=== PATIENT | male | born 1985 | race Caucasian/White ===

== ENCOUNTER 2022-09-01 07:15 | Outpatient (OUT) | payer MEDICAID, SELFPAY ==
[2022-09-01 07:35] LABS: Basophils Percent Auto 0.6 % (0.2-2.0); Eosinophils Absolute Auto 0.1 10^3/uL (0.0-0.7); Eosinophils Percent Auto 2.6 % (0.9-7.0); Hematocrit 43.4 % (42.0-54.0); Hemoglobin 14.1 g/dL (14.0-18.0); Immature Granulocytes Abs Auto 0.01 10^3/uL (0.00-0.03); Immature Granulocytes Pct Auto 0.2 % (0.0-0.5); Lymphocytes Absolute Auto 2.3 10^3/uL (1.2-3.8); Lymphocytes Percent Auto 44.8 % (20.5-60.0); Mean Corpuscular HGB Conc 32.5 g/dL (29.9-35.2); Mean Corpuscular Hemoglobin 29.6 pg (25.9-34.0); Mean Platelet Volume 9.3 fL (9.5-13.5); Monocytes Absolute Auto 0.4 10^3/uL (0.3-0.8); Monocytes Percent Auto 8.7 % (1.7-12.0); Neutrophils Absolute Auto 2.2 10^3/uL (1.4-6.5); Neutrophils Percent Auto 43.1 % (43.0-75.0); Platelet Count 219 10^3/uL (150-450); Red Blood Count 4.77 10^6/uL (4.70-6.10); Red Cell Distribution Width 12.3 % (11.0-15.0)
[2022-09-01 08:28] LABS: Alanine Aminotransferase 36 U/L (16-63); Albumin Globulin Ratio 0.8; Albumin Level 3.5 g/dL (3.4-5.0); Alkaline Phosphatase 73 U/L (46-116); Anion Gap 6.7; Aspartate Amino Transferase 20 U/L (15-37); BUN Creatinine Ratio 19.7; Bilirubin Total 0.2 mg/dL (0.2-1.0); Calcium 9.1 mg/dL (8.5-10.1); Carbon Dioxide 35.6 mmol/L (21.0-32.0); Chloride 106 mmol/L (98-107); Estimated GFR (African America >60 (>=60); Estimated GFR (Non-African Ame >60 (>=60); Globulin 4.2 g/dL; Glucose 90 mg/dL (74-106); Potassium 4.3 mmol/L (3.5-5.1); Sodium 144 mmol/L (136-145); Thyroid Stimulating Hormone 1.444 uIU/mL (0.358-3.740); Total Protein 7.7 g/dL (6.4-8.2)
== END 2022-09-01 07:16 | disposition home or self-care (01) ==
LOC: LAB 07:16
PROVIDERS: PCP Family Medicine; Visit Provider Family Medicine
DX: E03.9 Hypothyroidism, unspecified (principal); Z79.899 Other long term (current) drug therapy
CPT/HCPCS: 36415; 80053; 84436; 84443; 85025

== ENCOUNTER 2022-10-09 22:51 | Emergency (ER) | payer MEDICAID, SELFPAY ==
[2022-10-09] VITALS (8 sets, daily range): BP systolic 85; BP diastolic 56; PULSE 46–58; RESP 14–21; TEMP 34.7; O2SAT 99–100
[2022-10-09] MEDS: NALOXONE HCL 2 MG/2 ML SYRINGE IV (22:54)
[2022-10-09] MEDS: MIDAZOLAM HCL 2 MG/2 ML VIAL 4 MG IV (22:57)
[2022-10-09] MEDS: 0.9 % SODIUM CHLORIDE 1,000 ML 999 ML IV (23:00)
[2022-10-09] MEDS: ETOMIDATE 20 MG/10 ML VIAL 30 MG IV (23:02)
[2022-10-09] MEDS: MIDAZOLAM HCL 2 MG/2 ML VIAL IV (23:05)
--- NOTE | 2022-10-09 23:10 | ECG_ITS ---
The [facility] Test Date: 2022-10-09 Pat Name: MILAN RAMOS Department: Room: - Gender: Male First Assistant Manager: : 1985 Requested By: [id number] Order Number: [id number] Reading MD: ANDREIA CORONADO Measurements Intervals [place] Rate: 59 P: 72 AR: 142 QRS: 98 QRSD: 122 T: 70 QT: 474 QTc: 474 Interpretive Statements 1100 Sinus rhythm 2420 RSR (QR) in lead V1/V2, consistent with right ventricular conduction delay 7102 Moderate right axis deviation 8304 Long QTc interval 9150 abnormal ECG No previous ECG available for comparison Electronically Signed On 10-10-2022 7:07:25 EDT by ANDREIA CORONADO
--- NOTE | 2022-10-09 23:10 | CT_ITS ---
The [address] [address] Patient Name: MILAN RAMOS MRN: [id number] date: 1985 Sex: M Assigned Patient Location: ED.MAIN Current Patient Location: Accession/Order Number: [id number] Exam Date: 10/09/2022 11:30 Report Date: 10/10/2022 00:03 At the request of: SWAPNA RIVERA Procedure: CT head/brain wo con EXAMINATION: CT head/brain wo con HISTORY: unresponsive COMPARISON: None. TECHNIQUE: CT images through the head without contrast. Dose reduction techniques were achieved by using: automated exposure control and/or adjustment of mA and /or kV according to patient size and/or use of iterative reconstruction technique. FINDINGS: The ventricles and sulci are within normal limits in size and configuration for age. There is no evidence for acute intracranial hemorrhage. There are no foci of abnormal parenchymal attenuation. There is no mass effect or midline shift. There are no abnormal extraaxial fluid collections. CT/CT head/brain wo con IMPRESSION: Negative for acute hemorrhage or acute intracranial process. Electronically authenticated by: MIKI LIMA Date: 10/10/2022 00:03
--- NOTE | 2022-10-09 23:11 | CT_ITS ---
The [address] [address] Patient Name: MILAN RAMOS MRN: [id number] date: 1985 Sex: M Assigned Patient Location: ED.MAIN Current Patient Location: Accession/Order Number: [id number] Exam Date: 10/09/2022 11:30 Report Date: 10/10/2022 00:13 At the request of: SWAPNA RIVERA Procedure: CT angio chest EXAM: CT angio chest HISTORY: hypoxemia COMPARISON: None. TECHNIQUE: Axial CT and radiographic images through the chest were obtained after the intravenous administration of 90 mL Omnipaque 350 contrast. Coronal and sagittal reformats were obtained. Dose reduction techniques were achieved by using automated exposure control and/or adjustment of mA and/or kV according to patient size and/or use of iterative reconstruction technique. FINDINGS: The study is technically adequate with a good contrast bolus to the pulmonary arteries. There are no filling defects or vascular cutoffs to indicate a pulmonary embolus. The pulmonary arteries are normal in size. There are nodular areas of consolidation and scattered groundglass opacities in the right middle lobe. The central airways are patent. No pleural effusion or pneumothorax is seen. An endotracheal tube terminates just above the hans and is directed toward the right mainstem bronchus. The thoracic aorta is normal in course and caliber without evidence of an aneurysm. The cardiac chambers appear normal in size. There is no pericardial effusion. There is no mediastinal, hilar, or axillary lymphadenopathy by CT size criteria. Images through the upper abdomen reveal no significant abnormalities. No suspicious or aggressive bone lesions are seen. No acute fracture is seen. CT/CT angio chest IMPRESSION: 1. No evidence of pulmonary embolism. 2. Right middle lobe pneumonia. 3. The endotracheal tube terminates just above the hans and is directed toward the right mainstem bronchus. Recommend retraction by 2 to 3 cm. Electronically authenticated by: Evaristo MCNEIL Date: 10/10/2022 00:13
[2022-10-09 23:24] LABS: Eosinophils Absolute Auto 0.1 10^3/uL (0.0-0.7); Immature Granulocytes Abs Auto 0.01 10^3/uL (0.00-0.03); Immature Granulocytes Pct Auto 0.2 % (0.0-0.5); Monocytes Absolute Auto 0.7 10^3/uL (0.3-0.8); Neutrophils Absolute Auto 3.1 10^3/uL (1.4-6.5)
[2022-10-09] MEDS: PROPOFOL 1,000 MG/100 ML VIAL 1.92 MG IV (23:25)
[2022-10-09 23:48] LABS: Bilirubin Urine NEGATIVE (NEGATIVE); Blood Urine NEGATIVE (NEGATIVE); Clarity Urine CLEAR (CLEAR); Color Urine DK. YELLOW (YELLOW); Glucose Urine UA NEGATIVE (NEGATIVE); Ketones Urine TRACE mg/dL (NEGATIVE); Leukocyte Esterase Urine NEGATIVE (NEGATIVE); Nitrite Urine NEGATIVE (NEGATIVE); Protein Urine TRACE mg/dL (NEG/TRACE); Specific Gravity Urine 1.025 (1.005-1.025)
--- NOTE | 2022-10-09 23:49 | ED_ITS ---
HPI - General Adult General Chief complaint: Altered Mental Status Stated complaint: HYPOTENSION Time Seen by Provider: 10/09/22 23:09 Mode of arrival: ambulance Limitations: altered mental status Limitations comment: History from EMS, caregiver. History of Present Illness HPI narrative: Patient brought in via EMS unresponsive. Patient is a resident from [place]. He spent the whole day outdoors. He was doing well at 8:30 PM. Staff was doing rounds at 10:30 and found the patient not responding, diaphoretic, hypotensive, and bradycardic. EMS arrived the patient was given IV fluids and placed on a nonrebreather. The patient arrives to the emergency department with a nonrebreather that is not on his face. Patient's glucose was 143 at the scene. Patient has a history of ankle men syndrome, and intellectual disability, seizure disorder, hypothyroidism, dysphagia. Caregiver confirms the patient has not been sick with anything recently. Patient is a full code. Related Data Home Medications Medication Instructions Recorded Confirmed ascorbic acid (vitamin C) 250 mg 250 mg PO DAILY 10/10/22 10/10/22 tablet carbamazepine 200 mg tablet mg 10/10/22 cholecalciferol (vitamin D3) 125 10/10/22 mcg (5,000 unit) capsule divalproex 250 mg tablet,extended mg PO 10/10/22 release 24 hr divalproex 500 mg tablet,extended mg PO 10/10/22 release 24 hr guanfacine 1 mg tablet mg 10/10/22 guanfacine 2 mg tablet mg 10/10/22 levothyroxine 75 mcg tablet mcg 10/10/22 linaclotide 290 mcg capsule mcg 10/10/22 (Linzess) montelukast 10 mg tablet mg 10/10/22 multivitamin tab 10/10/22 polyethylene glycol 3350 17 g 10/10/22 gram/dose oral powder white petrolatum topical 10/10/22 zinc gluconate 50 mg tablet mg 10/10/22 Allergies Allergy/AdvReac Type Severity Reaction Status Date / Time cefaclor [From Ceclor] Allergy Unknown Verified 10/09/22 23:50 erythromycin base Allergy Unknown Verified 10/09/22 23:50 [From Pediazole] sulfisoxazole Allergy Unknown Verified 10/09/22 23:50 [From Pediazole] Review of Systems ROS Status of ROS unobtainable due to endotracheal tube, unobtainable due to medical condition and unobtainable due to mental status Exam Narrative Exam Narrative: Nurses notes and vital signs reviewed and patient is not hypoxic. General: Well-developed, well-nourished, not responding other than to painful stimulus. Nonverbal Skin: Warm, dry, no pallor noted. No Rash Head: Normocephalic, atraumatic. Neck: Supple Eye: Pupils are equal, round pinpoint and EOMI. No scleral icterus. Ears, Nose, Mouth, and Throat: TM clear, no posterior oropharynx erythema or nasal mucosal hypertrophy, uvula is mid-line Oral mucosa is moist Cardiovascular: bradycardia without murmur, gallop or rub. Respiratory: There is no chest triceps observed, no respiratory effort, no respiratory distress. Lungs bilateral lower rhonchi Chest Wall: no tenderness Back: No midline thoracic or lumbar vertebral tenderness. No CVA tenderness Musculoskeletal: normal ROM, no calf or popliteal tenderness, no lower extremity edema/swelling GI: Abdomen is soft, non-distended. Normal bowel sounds. No tenderness to palpation. No rebound, guarding, or rigidity noted : No signs of trauma, no edema, uncircumcised, soiled Neurological: GCS6, no asymmetry observed. flexes left arm to painful stimuli. Psychiatric: unable, unresponsive Constitutional Vital Signs, click to edit/add: Last Vital Signs Temp 94.5 F L 10/09/22 23:00 Pulse 63 10/10/22 02:00 Resp 21 10/09/22 23:25 BP 128/91 10/10/22 02:00 Pulse Ox 100 10/10/22 02:00 O2 Del Method Mechanical Ventilator 10/09/22 23:05 FiO2 50 10/09/22 23:17 Course Vital Signs Vital signs: Vital Signs Temperature 94.5 F L 10/09/22 23:00 Temperature 94.5 F L 10/09/22 23:00 Pulse Rate 63 10/10/22 02:00 Respiratory Rate 10/09/22 23:25 Blood Pressure 128/91 10/10/22 02:00 Pulse Oximetry 100 10/10/22 02:00 Oxygen Delivery Method Mechanical Ventilator 10/09/22 23:05 Fraction of Inspired Oxygen 50 10/09/22 23:17 Medical Decision Making MDM Narrative Medical decision making narrative: Patient arrived with a pulse, but he had no chest rise. Pupils were pinpoint he was given Narcan and there was no response. IV fluids were started and proceded to intubate. RSI Intubation Note: Indication :GCS6, patient unresponsive. Emergent consent. Patient had IV established. Pre oxygenated to O2 wyf159% with bag valve mask. Patient was given 4 mg of Versed, and 30 mg of Amidate IV. The g lidoscope was used to visualize the cords. An 8.0 Uzbek ET tube was passed into the trachea through the cords. Placed 22 cm at the lips. Placement was confirmed by good fogging of tube, The CO2 detector, bilateral and equal lungs sounds, and chest x-ray. ETT pulled 2cm to 20 at the lip. Only 1 attempt was needed, patient tolerated well. Patient started on diprivan. Then settings AC TV 450, RR14, FiO2 of 35 %, PEEP of 5. ABGs reviewed, and fire to was decreased from 50->35%. Patient was hypotensive he was given 2 L normal saline. Remained hypotensive started on Levophed. Patient then became bradycardic 30s she was given 0.5 mg of atropine. He responded well to this. Patient's labs show the patient to have hypercalcemia. He was given 2 g of calcium gluconate. The patient was covered with vancomycin, and Zosyn [address] scan of the brain is unremarkable. CTA of the chest shows no PE or dissection, right lower lobe pneumonia. With the results were discussed with the caregiver, and family. At this time wouldn't have a clear etiology for the patient's unresponsive, and respiratory Patient has remained hemodynamically stable. Patient was discussed with Dr. martinez who has accepted the patient in transfer to [facility] [place].Patient will be accepted by Dr. Rodríguez. flight en route. Medical Records Medical records reviewed: Yes I reviewed the patient's medical records Medical records narrative: Records from the shelter where reviewed and are part of the medical decision making. Lab Data Lab results reviewed: Yes I reviewed the patient's lab results Labs: Lab Results 10/09/22 10/09/22 10/09/22 Range/Units 23:00 23:25 23:27 WBC 5.5 (4.0-11.0) 10^3/uL RBC 3.20 L (4.70-6.10) 10^6/uL Hgb 9.8 L (14.0-18.0) g/dL Hct 29.0 L (42.0-54.0) % MCV 90.6 (80.0-94.0) fL MCH 30.6 (25.9-34.0) pg MCHC 33.8 (29.9-35.2) g/dL RDW 12.5 (11.0-15.0) % Plt Count 116 L (150-450) 10^3/uL MPV 9.9 (9.5-13.5) fL Neut % (Auto) 55.9 (43.0-75.0) % Lymph % (Auto) 29.3 (20.5-60.0) % Leslie % (Auto) 12.6 H (1.7-12.0) % Eos % (Auto) 1.8 (0.9-7.0) % Baso % (Auto) 0.2 (0.2-2.0) % Neut # (Auto) 3.1 (1.4-6.5) 10^3/uL Lymph # (Auto) 1.6 (1.2-3.8) 10^3/uL Leslie # (Auto) 0.7 (0.3-0.8) 10^3/uL Eos # (Auto) 0.1 (0.0-0.7) 10^3/uL Baso # (Auto) 0.0 (0.0-0.1) 10^3/uL Abs Immat Gran (auto) 0.01 (0.00-0.03) 10^3/uL Imm/Tot Granulo (auto) 0.2 (0.0-0.5) % PT 11.4 (9.0-11.6) sec INR 1.08 APTT 32.8 (22.3-36.2) sec Puncture Site ABG pH (7.350-7.450) ABG pCO2 (35.0-45.0) mmHg ABG pO2 (80.0-100.0) mmHg ABG HCO3 (22.0-26.0) mmol/L ABG O2 Saturation % ABG Base Excess (-2.0-2.0) mmol/L Edis Test (POSITIVE) Vent Mode FiO2 % Tidal Volume Sodium 142 (136-145) mmol/L Potassium 3.2 L (3.5-5.1) mmol/L Chloride 109 H (98-107) mmol/L Carbon Dioxide 27.7 (21.0-32.0) mmol/L Anion Gap 8.5 BUN 16.0 (7.0-18.0) mg/dL Creatinine 0.70 (0.70-1.30) mg/dL Est GFR ( Amer) >60 (>=60) Est GFR (Non-Af Amer) >60 (>=60) BUN/Creatinine Ratio 22.9 Glucose 141 H (74-106) mg/dL Lactate 1.7 (0.4-2.0) mmol/L Calcium 6.9 L (8.5-10.1) mg/dL Magnesium 1.8 (1.8-2.4) mg/dL Total Bilirubin 0.3 (0.2-1.0) mg/dL AST 13 L (15-37) U/L ALT 12 L (16-63) U/L Alkaline Phosphatase 53 (46-116) U/L Ammonia 63 H* (11-32) umol/L Troponin I High Sens 13.0 (4.0-76.1) pg/mL NT-Pro-B Natriuret Pep 56.0 (<=450.0) pg/mL Total Protein 4.7 L (6.4-8.2) g/dL Albumin 2.1 L (3.4-5.0) g/dL Globulin 2.6 g/dL Albumin/Globulin Ratio 0.8 TSH 0.961 (0.358-3.740) uIU/mL Urine Color Dk. yellow (YELLOW) Urine Clarity Clear (CLEAR) Urine pH 6.0 (5.0-9.0) Ur Specific [place] 1.025 (1.005-1.025) Urine Protein Trace (NEG/TRACE) mg/dL Urine Glucose (UA) Negative (NEGATIVE) mg/dL Urine Ketones Trace A (NEGATIVE) mg/dL Urine Occult Blood Negative (NEGATIVE) Urine Nitrite Negative (NEGATIVE) Urine Bilirubin Negative (NEGATIVE) Urine Urobilinogen 1.0 (0.2-1.0) EU/dL Ur Leukocyte Esterase Negative (NEGATIVE) Salicylates <2.8 (<=19.9) mg/dL Urine Opiates Screen Negative (NEGATIVE) Ur Buprenorphine Scrn Negative (NEGATIVE) Ur Oxycodone Screen Negative (NEGATIVE) Urine Methadone Screen Negative (NEGATIVE) Ur Propoxyphene Screen Negative (NEGATIVE) Acetaminophen 5.0 L (10.0-30.0) ug/mL Ur Barbiturates Screen Negative (NEGATIVE) U Tricyclic Antidepress Negative (NEGATIVE) Ur Phencyclidine Scrn Negative (NEGATIVE) Ur Amphetamines Screen Negative (NEGATIVE) U Methamphetamines Scrn Negative (NEGATIVE) U Benzodiazepines Scrn Negative (NEGATIVE) Urine Cocaine Screen Negative (NEGATIVE) U Cannabinoids Screen Negative (NEGATIVE) Ethanol Quant <3 mg/dL 10/10/22 Range/Units 00:05 WBC (4.0-11.0) 10^3/uL RBC (4.70-6.10) 10^6/uL Hgb (14.0-18.0) g/dL Hct (42.0-54.0) % MCV (80.0-94.0) fL MCH (25.9-34.0) pg MCHC (29.9-35.2) g/dL RDW (11.0-15.0) % Plt Count (150-450) 10^3/uL MPV (9.5-13.5) fL Neut % (Auto) (43.0-75.0) % Lymph % (Auto) (20.5-60.0) % Leslie % (Auto) (1.7-12.0) % Eos % (Auto) (0.9-7.0) % Baso % (Auto) (0.2-2.0) % Neut # (Auto) (1.4-6.5) 10^3/uL Lymph # (Auto) (1.2-3.8) 10^3/uL Leslie # (Auto) (0.3-0.8) 10^3/uL Eos # (Auto) (0.0-0.7) 10^3/uL Baso # (Auto) (0.0-0.1) 10^3/uL Abs Immat Gran (auto) (0.00-0.03) 10^3/uL Imm/Tot Granulo (auto) (0.0-0.5) % PT (9.0-11.6) sec INR APTT (22.3-36.2) sec Puncture Site L radial ABG pH 7.388 (7.350-7.450) ABG pCO2 43.7 (35.0-45.0) mmHg ABG pO2 279.0 H (80.0-100.0) mmHg ABG HCO3 26.3 H (22.0-26.0) mmol/L ABG O2 Saturation >100.0 % ABG Base Excess 1.3 (-2.0-2.0) mmol/L Edis Test Positive (POSITIVE) Vent Mode A/c FiO2 50 % Tidal Volume 450 Sodium (136-145) mmol/L Potassium (3.5-5.1) mmol/L Chloride (98-107) mmol/L Carbon Dioxide (21.0-32.0) mmol/L Anion Gap BUN (7.0-18.0) mg/dL Creatinine (0.70-1.30) mg/dL Est GFR ( Amer) (>=60) Est GFR (Non-Af Amer) (>=60) BUN/Creatinine Ratio Glucose (74-106) mg/dL Lactate (0.4-2.0) mmol/L Calcium (8.5-10.1) mg/dL Magnesium (1.8-2.4) mg/dL Total Bilirubin (0.2-1.0) mg/dL AST (15-37) U/L ALT (16-63) U/L Alkaline Phosphatase (46-116) U/L Ammonia (11-32) umol/L Troponin I High Sens (4.0-76.1) pg/mL NT-Pro-B Natriuret Pep (<=450.0) pg/mL Total Protein (6.4-8.2) g/dL Albumin (3.4-5.0) g/dL Globulin g/dL Albumin/Globulin Ratio TSH (0.358-3.740) uIU/mL Urine Color (YELLOW) Urine Clarity (CLEAR) Urine pH (5.0-9.0) Ur Specific [place] (1.005-1.025) Urine Protein (NEG/TRACE) mg/dL Urine Glucose (UA) (NEGATIVE) mg/dL Urine Ketones (NEGATIVE) mg/dL Urine Occult Blood (NEGATIVE) Urine Nitrite (NEGATIVE) Urine Bilirubin (NEGATIVE) Urine Urobilinogen (0.2-1.0) EU/dL Ur Leukocyte Esterase (NEGATIVE) Salicylates (<=19.9) mg/dL Urine Opiates Screen (NEGATIVE) Ur Buprenorphine Scrn (NEGATIVE) Ur Oxycodone Screen (NEGATIVE) Urine Methadone Screen (NEGATIVE) Ur Propoxyphene Screen (NEGATIVE) Acetaminophen (10.0-30.0) ug/mL Ur Barbiturates Screen (NEGATIVE) U Tricyclic Antidepress (NEGATIVE) Ur Phencyclidine Scrn (NEGATIVE) Ur Amphetamines Screen (NEGATIVE) U Methamphetamines Scrn (NEGATIVE) U Benzodiazepines Scrn (NEGATIVE) Urine Cocaine Screen (NEGATIVE) U Cannabinoids Screen (NEGATIVE) Ethanol Quant mg/dL ECG Data Attestation: I personally reviewed and interpreted this ECG as follows: Interpretation: Sinus bradycardia without any acute ischemic changes. Critical Care Time Critical Care Time Critical Care Time: Yes Total Critical Care Time: 90 Attestation: Critical Care Time: 90 minutes, critical care time is separate from any procedures that are performed. The following was considered in the determination of critical care but not limited to the level medical decision-making, intensive cardiac and/or respiratory monitor, frequent vital sign monitoring, evaluation of laboratory studies, evaluation of a radiographic studies, oxygen monitoring and constant monitoring. Discharge Plan Discharge Chief Complaint: Altered Mental Status Clinical Impression: Unresponsive, Respiratory failure, acute, Bradycardia, Hypotension, Pneumonia Patient Disposition: [facility] Time of Disposition Decision: 01:27 Discharge Location: [facility] Condition: Serious Mode of Transportation: Life [facility]
[2022-10-09 23:58] LABS: Amphetamine Screen Urine NEGATIVE (NEGATIVE); Barbiturates Screen Urine NEGATIVE (NEGATIVE); Benzodiazepines Screen Urine NEGATIVE (NEGATIVE); Buprenorphine Screen Urine NEGATIVE (NEGATIVE); Cannabinoid Screen Urine NEGATIVE (NEGATIVE); Cocaine Screen Urine NEGATIVE (NEGATIVE); Methadone Screen Urine NEGATIVE (NEGATIVE); Methamphetamines Screen Urine NEGATIVE (NEGATIVE); Opiate Screen Urine NEGATIVE (NEGATIVE); Oxycodone Screen Urine NEGATIVE (NEGATIVE); Phencyclidine Screen Urine NEGATIVE (NEGATIVE); Tricyclic Antidepressant Urine NEGATIVE (NEGATIVE); Urine Microscopic Indicated NO
[2022-10-10] VITALS (36 sets, daily range): BP systolic 81–173; BP diastolic 55–119; PULSE 32–74; O2SAT 99–100
[2022-10-10 00:02] LABS: Ammonia 63 umol/L (11-32)
[2022-10-10] MEDS: NOREPINEPHRINE BITARTRATE 4 MG in DEXTROSE 5 % IN WATER 250 ML 45.72 MG IV (00:10)
[2022-10-10] MEDS: ATROPINE SULFATE 0.4 MG/ML VIAL 0.5 MG IVP (00:15)
--- NOTE | 2022-10-10 00:15 | RESP.RT ---
ET tube pulled out 2cm per Dr. Robertson request. ET tube now 20 cm at the lip.
[2022-10-10 00:24] LABS: ABG PCO2 43.7 mmHg (35.0-45.0); Allen Test POSITIVE (POSITIVE); Base Excess ABG 1.3 mmol/L (-2.0-2.0); HCO3 ABG 26.3 mmol/L (22.0-26.0); pH ABG 7.388 (7.350-7.450)
[2022-10-10 00:25] LABS: Fractionated Inspired Oxygen 50 %; O2 Mode VENT; Oxygen Saturation ABG >100.0 %; Puncture Site L RADIAL; Rate 14; Vent Mode A/C
[2022-10-10 00:26] LABS: Tidal Volume 450
[2022-10-10 00:30] LABS: Basophils Percent Auto 0.2 % (0.2-2.0); Eosinophils Percent Auto 1.8 % (0.9-7.0); Hemoglobin 9.8 g/dL (14.0-18.0); Lymphocytes Absolute Auto 1.6 10^3/uL (1.2-3.8); Lymphocytes Percent Auto 29.3 % (20.5-60.0); Mean Corpuscular HGB Conc 33.8 g/dL (29.9-35.2); Mean Corpuscular Hemoglobin 30.6 pg (25.9-34.0); Mean Corpuscular Volume 90.6 fL (80.0-94.0); Mean Platelet Volume 9.9 fL (9.5-13.5); Monocytes Percent Auto 12.6 % (1.7-12.0); Neutrophils Percent Auto 55.9 % (43.0-75.0); Platelet Count 116 10^3/uL (150-450); Red Cell Distribution Width 12.5 % (11.0-15.0); White Blood Count 5.5 10^3/uL (4.0-11.0)
[2022-10-10 00:32] LABS: Prothrombin Time 11.4 sec (9.0-11.6)
[2022-10-10 00:33] LABS: Alanine Aminotransferase 12 U/L (16-63); Albumin Globulin Ratio 0.8; Albumin Level 2.1 g/dL (3.4-5.0); Alkaline Phosphatase 53 U/L (46-116); Anion Gap 8.5; Aspartate Amino Transferase 13 U/L (15-37); BUN Creatinine Ratio 22.9; Bilirubin Total 0.3 mg/dL (0.2-1.0); Calcium 6.9 mg/dL (8.5-10.1); Carbon Dioxide 27.7 mmol/L (21.0-32.0); Chloride 109 mmol/L (98-107); Estimated GFR (African America >60 (>=60); Estimated GFR (Non-African Ame >60 (>=60); Globulin 2.6 g/dL; Glucose 141 mg/dL (74-106); INR 1.08; Magnesium 1.8 mg/dL (1.8-2.4); Partial Thromboplastin Time 32.8 sec (22.3-36.2); Potassium 3.2 mmol/L (3.5-5.1); Salicylate <2.8 mg/dL (<=19.9); Sodium 142 mmol/L (136-145); Total Protein 4.7 g/dL (6.4-8.2)
[2022-10-10 00:36] LABS: Ethanol <3 mg/dL
[2022-10-10 00:43] LABS: Lactate/Lactic Acid 1.7 mmol/L (0.4-2.0)
[2022-10-10] MEDS: CALCIUM GLUCONATE 1,000 MG/10 ML VIAL 2000 MG IVP (00:50)
[2022-10-10 01:02] LABS: Thyroid Stimulating Hormone 0.961 uIU/mL (0.358-3.740)
--- NOTE | 2022-10-10 01:06 | RESP.RT ---
P02 on ABG was 279.0. Decreased Fi02 down from 50% to 35%.
--- NOTE | 2022-10-10 01:18 | PC.NURSE ---
pt brought in by ems by [facility], report called to courtney castelan from a nurse at [facility] stating that patient was less alert than normal and last known well was 8-8:30 pm on 10/09/2022; when ems arrival pt was unresponsive to painful stimuli and placed on a non-rebreather mask at 15L. pt has hx mmrdd and is non-verbal.
--- NOTE | 2022-10-10 01:23 | PC.NURSE ---
on arrival to ED pt vitals are HR-66, O2-100% BAGGED, RR-14, BP-84/48 2254- 2mg of narcan given 2257- 4mg versed given 2302- 30mg etomidate given 2305- 2mg versed given 230- intubation successfully done at this time by dr. feliz, measuring 25 at the lip, 7.0 ET tube 5- pt had large bowel movement and cleaned up with soap and water, urinary catheter placed at this time and urine sample obtained 2324- propofol drip started at 5mcg/kg/min 0010- increased propofol to 10mcg/kg/min; levophed drip started at 12mcg/min; RT at bedside pulled ET tube back; now measuring at 20 at the lip 0015- pt heart rate dropped down to 32 bpm, physician notified, 1/2 amp of atropine given at this time, pt heart rate up to 40-45 bpm 0020- levophed decreased and now running at 10 mcg/min 0045- levophed decreased and now running at 8 mcg/min 0050- 2000 mg of calcium gluconate being adinistered at this time 0105- RT at bedside and decreased FiO2 to 35% 0127- pt bp 139/101; instructed by physician to decrase levophed drip, now running at 4 mcg/min
--- NOTE | 2022-10-10 01:33 | PC.NURSE ---
VT- 450 RR- 14 PEEP- 5 FiO2- STARTED AT 50%; at 0105 RT decreased FiO2 to 35%
[2022-10-10] MEDS: AMPICILLIN SODIUM/SULBACTAM NA 3 GM in 0.9 % SODIUM CHLORIDE 100 ML IV (01:36)
[2022-10-10] MEDS: VANCOMYCIN HCL 1,500 MG in 0.9 % SODIUM CHLORIDE 500 ML 250 MG IV (01:40)
[2022-10-10 02:16] LABS: Adenovirus NOT DETECTED (NOT DETECTE); Bordetella parapertussis NOT DETECTED (NOT DETECTE); Coronavirus 229E NOT DETECTED (NOT DETECTE); Coronavirus HKU1 NOT DETECTED (NOT DETECTE); Coronavirus NL63 NOT DETECTED (NOT DETECTE); Coronavirus OC43 NOT DETECTED (NOT DETECTE); Human Metapneumovirus NOT DETECTED (NOT DETECTE); Human Rhinovirus/Enterovirus NOT DETECTED (NOT DETECTE); Influenza A NOT DETECTED (NOT DETECTE); Influenza B NOT DETECTED (NOT DETECTE); Mycoplasma pneumoniae NOT DETECTED (NOT DETECTE); Parainfluenza Virus 1 NOT DETECTED (NOT DETECTE); Parainfluenza Virus 2 NOT DETECTED (NOT DETECTE); Parainfluenza Virus 3 NOT DETECTED (NOT DETECTE); Parainfluenza Virus 4 NOT DETECTED (NOT DETECTE); Respiratory Syncytial Virus NOT DETECTED (NOT DETECTE); SARS-CoV-2 NOT DETECTED (NOT DETECTE)
[2022-10-11 13:14] LABS: A. calcoaceticus-baumannii Cpx NOT DETECTED (NOT DETECTE); Bacteroides fragilis NOT DETECTED (NOT DETECTE); Enterobacter cloacae complex NOT DETECTED (NOT DETECTE); Enterobacterales NOT DETECTED (NOT DETECTE); Enterococcus faecalis NOT DETECTED (NOT DETECTE); Enterococcus faecium NOT DETECTED (NOT DETECTE); Haemophilus influenzae NOT DETECTED (NOT DETECTE); Klebsiella aerogenes NOT DETECTED (NOT DETECTE); Klebsiella pneumoniae group NOT DETECTED (NOT DETECTE); Listeria monocytogenes NOT DETECTED (NOT DETECTE); Neisseria meningitidis NOT DETECTED (NOT DETECTE); Proteus spp. NOT DETECTED (NOT DETECTE); Pseudomonas aeruginosa NOT DETECTED (NOT DETECTE); Salmonella spp. NOT DETECTED (NOT DETECTE); Serratia marcescens NOT DETECTED (NOT DETECTE); Staphylococcus epidermidis NOT DETECTED (NOT DETECTE); Staphylococcus lugdunensis NOT DETECTED (NOT DETECTE); Staphylococcus spp. NOT DETECTED (NOT DETECTE); Stenotrophomonas maltophilia NOT DETECTED (NOT DETECTE); Streptococcus agalactiae NOT DETECTED (NOT DETECTE); Streptococcus pneumoniae NOT DETECTED (NOT DETECTE); Streptococcus pyogenes NOT DETECTED (NOT DETECTE); Streptococcus spp. NOT DETECTED (NOT DETECTE)
[2022-10-11 13:15] LABS: Candida albicans NOT DETECTED (NOT DETECTE); Candida auris NOT DETECTED (NOT DETECTE); Candida glabrata NOT DETECTED (NOT DETECTE); Candida krusei NOT DETECTED (NOT DETECTE); Candida parapsilosis NOT DETECTED (NOT DETECTE); Candida tropicalis NOT DETECTED (NOT DETECTE); Cryptococcus neoformans/gattii NOT DETECTED (NOT DETECTE)
== END 2022-10-10 02:45 | disposition short-term general hospital (02) ==
PROVIDERS: Emergency Provider Emergency Medicine; PCP Family Medicine
DX: R00.1 Bradycardia, unspecified (principal); J96.00 Acute respiratory failure, unspecified whether with hypoxia or hypercapnia; J18.9 Pneumonia, unspecified organism; I95.9 Hypotension, unspecified; R40.4 Transient alteration of awareness; E03.9 Hypothyroidism, unspecified; R13.10 Dysphagia, unspecified; F79 Unspecified intellectual disabilities; Q93.51 Angelman syndrome; Z79.899 Other long term (current) drug therapy; Z20.822 Contact with and (suspected) exposure to COVID-19; Z79.890 Hormone replacement therapy
CPT/HCPCS: 0202U; 31500; 36415; 36600; 70450; 71275; 80053; 80164; 80179; 80307; 80320; 80329; 81003; 82140; 82805; 83605; 83735; 83880; 84443; 84484; 85025; 85378; 85610; 85730; 87040; 87070; 87150; 93005; 94002; 94003; 96361; 96365; 96375; 99285; J3370; Q9967

== ENCOUNTER 2022-11-04 08:35 | Outpatient (OUT) | payer MEDICAID, SELFPAY ==
[2022-11-04 09:29] LABS: Basophils Absolute Auto 0.1 10^3/uL (0.0-0.1); Basophils Percent Auto 0.9 % (0.2-2.0); Eosinophils Absolute Auto 0.3 10^3/uL (0.0-0.7); Eosinophils Percent Auto 5.9 % (0.9-7.0); Hemoglobin 13.8 g/dL (14.0-18.0); Immature Granulocytes Abs Auto 0.01 10^3/uL (0.00-0.03); Immature Granulocytes Pct Auto 0.2 % (0.0-0.5); Lymphocytes Absolute Auto 2.7 10^3/uL (1.2-3.8); Lymphocytes Percent Auto 47.9 % (20.5-60.0); Mean Corpuscular HGB Conc 32.1 g/dL (29.9-35.2); Mean Corpuscular Hemoglobin 30.3 pg (25.9-34.0); Mean Corpuscular Volume 94.5 fL (80.0-94.0); Mean Platelet Volume 10.2 fL (9.5-13.5); Monocytes Absolute Auto 0.4 10^3/uL (0.3-0.8); Monocytes Percent Auto 6.8 % (1.7-12.0); Neutrophils Absolute Auto 2.1 10^3/uL (1.4-6.5); Neutrophils Percent Auto 38.3 % (43.0-75.0); Platelet Count 208 10^3/uL (150-450); Red Blood Count 4.55 10^6/uL (4.70-6.10); Red Cell Distribution Width 12.9 % (11.0-15.0); White Blood Count 5.6 10^3/uL (4.0-11.0)
[2022-11-04 10:18] LABS: Alanine Aminotransferase 29 U/L (16-63); Albumin Globulin Ratio 0.9; Albumin Level 3.6 g/dL (3.4-5.0); Alkaline Phosphatase 63 U/L (46-116); Anion Gap 10.1; Aspartate Amino Transferase 19 U/L (15-37); BUN Creatinine Ratio 26.4; Bilirubin Total 0.3 mg/dL (0.2-1.0); Carbon Dioxide 33.5 mmol/L (21.0-32.0); Chloride 105 mmol/L (98-107); Estimated GFR (African America >60 (>=60); Estimated GFR (Non-African Ame >60 (>=60); Globulin 3.8 g/dL; Glucose 81 mg/dL (74-106); Potassium 4.6 mmol/L (3.5-5.1); Sodium 144 mmol/L (136-145); Thyroid Stimulating Hormone 2.765 uIU/mL (0.358-3.740); Total Protein 7.4 g/dL (6.4-8.2)
[2022-11-04 10:51] LABS: Free T4 0.65 ng/dL (0.76-1.46)
== END 2022-11-04 08:36 | disposition home or self-care (01) ==
PROVIDERS: PCP Family Medicine; Visit Provider Family Medicine
DX: G40.909 Epilepsy, unspecified, not intractable, without status epilepticus (principal); R41.82 Altered mental status, unspecified; Z87.898 Personal history of other specified conditions
CPT/HCPCS: 36415; 80053; 84439; 84443; 85025

== ENCOUNTER 2023-05-13 20:21 | Emergency (ER) | payer MEDICAID, SELFPAY ==
[2023-05-13 20:24] VITALS: BP 121/64; PULSE 87; TEMP 36.5; O2SAT 100; BMI 25.8
--- NOTE | 2023-05-13 20:32 | ED_ITS ---
HPI HPI - Extremity Injury (Lower) General Chief Complaint: Extremity Injury, Lower Stated Complaint: FALL Time Seen by Provider: 05/13/23 20:32 Source: patient Mode of arrival: ambulance Limitations: other Limitations comment: MRDD non-verbal History of Present Illness HPI Narrative: MRDD presents from care facility with right foot pain. Reportedly ambulatory. No known injury. Not able to weight bear. Staff noticed swelling of the foot today non verbal. Moans and makes sounds as his means to communicate Related Data Home Medications ?Medication ?Instructions ?Recorded ?Confirmed ascorbic acid (vitamin C) 250 mg 250 mg PO DAILY 10/10/22 05/13/23 tablet carbamazepine 200 mg tablet 400 mg PO BID 10/10/22 05/13/23 cholecalciferol (vitamin D3) 125 5,000 unit PO .once daily 10/10/22 05/13/23 mcg (5,000 unit) capsule divalproex 500 mg tablet,extended 500 mg PO .q12 10/10/22 05/13/23 release 24 hr guanfacine 1 mg tablet mg 10/10/22 guanfacine 2 mg tablet mg 10/10/22 levothyroxine 75 mcg tablet 75 mcg PO .once daily 10/10/22 05/13/23 linaclotide 290 mcg capsule 290 mcg PO .once daily 10/10/22 05/13/23 (Linzess) montelukast 10 mg tablet mg 10/10/22 multivitamin 1 tab PO .once daily 10/10/22 05/13/23 polyethylene glycol 3350 17 17 g PO .once daily 10/10/22 05/13/23 gram/dose oral powder white petrolatum topical 10/10/22 zinc gluconate 50 mg tablet 50 mg PO .once daily 10/10/22 05/13/23 Allergies Allergy/AdvReac Type Severity Reaction Status Date / Time cefaclor [From Ceclor] Allergy Unknown Verified 10/09/22 23:50 erythromycin base Allergy Unknown Verified 10/09/22 23:50 [From Pediazole] sulfisoxazole Allergy Unknown Verified 10/09/22 23:50 [From Pediazole] Opioid HPI Opioid Management Most Recent Pain and Opioid Data: Ur Phencyclidine Scrn Negative (NEGATIVE) 10/09/22 23:25 Review of Systems ROS Status of ROS unobtainable due to mental status Exam Constitutional Vital Signs, click to edit/add: Last Vital Signs Temp 97.7 F 05/13/23 20:24 Pulse 87 05/13/23 20:24 Resp 16 05/13/23 20:24 BP 121/64 05/13/23 20:24 Pulse Ox 100 05/13/23 20:24 O2 Del Method Room Air 05/13/23 20:24 Common normals: no apparent distress, alert and well nourished HENMT Common normals: normocephalic and head/scalp atraumatic Eye Common normals: EOMs intact bilaterally Respiratory Common normals: normal respiratory effort, no retractions, no use of accessory muscles and clear to auscultation bilaterally Cardio Common normals: regular rate, regular rhythm, S1 normal heart sound and S2 normal heart sound GI Common normals: Normal to inspection, nondistended, normoactive bowel sounds present and non-tender Extremity Other: mild swelling and erythema right foot. Tender. Difficult to neeraj how tender gi vijay his mental state Neuro Common normals: moves all extremities Course Vital Signs Vital signs: Vital Signs Temperature 97.7 F 05/13/23 20:24 Pulse Rate 87 05/13/23 20:24 Respiratory Rate 16 05/13/23 20:24 Blood Pressure 121/64 05/13/23 20:24 Pulse Oximetry 100 05/13/23 20:24 Oxygen Delivery Method Room Air 05/13/23 20:24 Temperature 97.7 F 05/13/23 20:24 Pulse Rate 87 05/13/23 20:24 Respiratory Rate 16 05/13/23 20:24 Blood Pressure 121/64 05/13/23 20:24 Pulse Oximetry 100 05/13/23 20:24 Oxygen Delivery Method Room Air 05/13/23 20:24 MDM - Extremity Injury (Lower) MDM Narrative Medical decision making narrative: patient presents with right foot pain. Not able to provide any history of he is MRDD. He does have mild swelling of the foot and faint erythema at the instep of the foot. Not able to maintenance chief how tender he is . xray with ?fracture of the 4th toe. This would not explain the swelling of the foot. Toes are not swollen. lab testing not supporting diagnosis of gout. Will treat as cellulitis and recommend follow up with family doctor for recheck Imaging Data Chest x-ray: Radiologist's impression: ITS Impressions Foot X-Ray 04/07/24 20:36 IMPRESSION: Questionable fracture of the medial base of the fourth middle phalanx, age indeterminate. Electronically authenticated by: JIMMIE TORRES Date: 05/13/2023 21:16 Discharge Plan Discharge Stand Alone Forms: Portal Instructions Chief Complaint: Extremity Injury, Lower Clinical Impression: Acute pain of right foot, Cellulitis of foot, right Patient Disposition: Home, Self-Care Condition: Good Mode of Transportation: EMS Prescriptions / Home Meds: No Action multivitamin Tablet 1 tab PO .once daily levothyroxine 75 mcg tablet 75 mcg PO .once daily carbamazepine 200 mg tablet 400 mg PO BID divalproex 500 mg tablet extended release 24 hr 500 mg PO .q12 guanfacine 1 mg tablet zinc gluconate 50 mg tablet 50 mg PO .once daily montelukast 10 mg tablet polyethylene glycol 3350 17 gram/dose powder 17 g PO .once daily guanfacine 2 mg tablet cholecalciferol (vitamin D3) 125 mcg (5,000 unit) capsule 5,000 unit PO .once daily Hold Instructions: Doctor's Order white petrolatum Gel TOPICAL Linzess 290 mcg capsule 290 mcg PO .once daily ascorbic acid (vitamin C) 250 mg tablet 250 mg PO DAILY Print Language: Ukrainian Instructions: Cellulitis (ED), Arthralgia (ED) Additional Instructions: follow up with family doctor for recheck in 2 days. Return if increasing pain , swelling or redness Referrals: CIERRA SINGH DO [Primary Care Provider] - 1 week Discharge Date/Time: 05/14/23 00:05
--- NOTE | 2023-05-13 20:36 | XR_ITS ---
The [address] [address] Patient Name: MILAN RAMOS MRN: [id number] date: 1985 Sex: M Assigned Patient Location: ER Current Patient Location: ED.MAIN Accession/Order Number: [id number] Exam Date: 05/13/2023 20:37 Report Date: 05/13/2023 21:16 At the request of: GOPI FRAUSTO Procedure: XR foot RT min 3V EXAM: XR foot RT min 3V HISTORY: The patient is a 37-year-old male with pain COMPARISON: None. FINDINGS: Both the AP and lateral views demonstrate a subtle cortical irregularity involving the medial base of the fourth toe middle phalanx. This is too small to characterize as to age. No other acute or ununited fractures are seen within the right foot. The widths and alignment of all the joints are maintained. XR/XR foot RT min 3V IMPRESSION: Questionable fracture of the medial base of the fourth middle phalanx, age indeterminate. Electronically authenticated by: JIMMIE TORRES Date: 05/13/2023 21:16
[2023-05-13 20:58] LABS: Basophils Absolute Auto 0.1 10^3/uL (0.0-0.1); Basophils Percent Auto 0.9 % (0.2-2.0); Eosinophils Absolute Auto 0.4 10^3/uL (0.0-0.7); Eosinophils Percent Auto 5.4 % (0.9-7.0); Hematocrit 43.4 % (42.0-54.0); Hemoglobin 13.9 g/dL (14.0-18.0); Immature Granulocytes Abs Auto 0.06 10^3/uL (0.00-0.03); Immature Granulocytes Pct Auto 0.7 % (0.0-0.5); Lymphocytes Absolute Auto 3.2 10^3/uL (1.2-3.8); Lymphocytes Percent Auto 39.4 % (20.5-60.0); Mean Corpuscular Volume 96.9 fL (80.0-94.0); Monocytes Absolute Auto 0.8 10^3/uL (0.3-0.8); Monocytes Percent Auto 9.3 % (1.7-12.0); Neutrophils Absolute Auto 3.6 10^3/uL (1.4-6.5); Neutrophils Percent Auto 44.3 % (43.0-75.0); Platelet Count 218 10^3/uL (150-450); Red Blood Count 4.48 10^6/uL (4.70-6.10); Red Cell Distribution Width 11.6 % (11.0-15.0); White Blood Count 8.2 10^3/uL (4.0-11.0)
[2023-05-13 21:05] LABS: Erythrocyte Sedimentation Rate 2 mm/hr (<=15)
[2023-05-13 21:07] LABS: Anion Gap 11.2; BUN Creatinine Ratio 34.1; C Reactive Protein <0.50 mg/dL (<=0.50); Calcium 8.9 mg/dL (8.5-10.1); Carbon Dioxide 33.2 mmol/L (21.0-32.0); Chloride 105 mmol/L (98-107); Estimated GFR (African America >60 (>=60); Estimated GFR (Non-African Ame >60 (>=60); Glucose 109 mg/dL (74-106); Potassium 4.4 mmol/L (3.5-5.1); Sodium 145 mmol/L (136-145); Uric Acid 5.5 mg/dL (3.5-7.2)
[2023-05-13] MEDS: IBUPROFEN 200 MG/10 ML ORAL.SUSP 600 MG PO (22:00)
[2023-05-13] MEDS: CLINDAMYCIN HCL 150 MG CAPSULE 300 MG PO (22:12)
--- NOTE | 2023-05-13 22:19 | PC.NURSE ---
Report called to Lisa castellanos [place]
[2023-05-13] MEDS: LORAZEPAM 2 MG/ML VIAL IM (23:45)
== END 2023-05-14 00:05 | disposition home or self-care (01) ==
PROVIDERS: Emergency Provider Internal Medicine; PCP Family Medicine
DX: M79.671 Pain in right foot (principal); L03.115 Cellulitis of right lower limb; F79 Unspecified intellectual disabilities; Z79.899 Other long term (current) drug therapy; Z79.890 Hormone replacement therapy
CPT/HCPCS: 36415; 73630; 80048; 84550; 85025; 85652; 86140; 96372; 99285

== ENCOUNTER 2023-08-24 07:23 | Outpatient (OUT) | payer MEDICAID, SELFPAY ==
[2023-08-24 07:57] LABS: Basophils Percent Auto 0.8 % (0.2-2.0); Eosinophils Absolute Auto 0.2 10^3/uL (0.0-0.7); Eosinophils Percent Auto 4.2 % (0.9-7.0); Hemoglobin 14.4 g/dL (14.0-18.0); Lymphocytes Absolute Auto 1.9 10^3/uL (1.2-3.8); Lymphocytes Percent Auto 50.7 % (20.5-60.0); Mean Corpuscular Hemoglobin 30.4 pg (25.9-34.0); Mean Corpuscular Volume 95.1 fL (80.0-94.0); Mean Platelet Volume 10.1 fL (9.5-13.5); Monocytes Absolute Auto 0.5 10^3/uL (0.3-0.8); Monocytes Percent Auto 12.5 % (1.7-12.0); Neutrophils Absolute Auto 1.2 10^3/uL (1.4-6.5); Neutrophils Percent Auto 31.8 % (43.0-75.0); Platelet Count 175 10^3/uL (150-450); Red Blood Count 4.73 10^6/uL (4.70-6.10); Red Cell Distribution Width 11.7 % (11.0-15.0); White Blood Count 3.8 10^3/uL (4.0-11.0)
[2023-08-24 09:03] LABS: Alanine Aminotransferase 34 U/L (16-63); Albumin Level 3.7 g/dL (3.4-5.0); Alkaline Phosphatase 77 U/L (46-116); Anion Gap 8.4; Aspartate Amino Transferase 24 U/L (15-37); BUN Creatinine Ratio 17.6; Bilirubin Total 0.4 mg/dL (0.2-1.0); Calcium 8.7 mg/dL (8.5-10.1); Carbon Dioxide 34.6 mmol/L (21.0-32.0); Chloride 103 mmol/L (98-107); Estimated GFR (African America >60 (>=60); Estimated GFR (Non-African Ame >60 (>=60); Globulin 3.8 g/dL; Glucose 88 mg/dL (74-106); Sodium 142 mmol/L (136-145); Thyroid Stimulating Hormone 1.766 uIU/mL (0.358-3.740); Total Protein 7.5 g/dL (6.4-8.2)
[2023-08-24 09:07] LABS: Free T4 0.65 ng/dL (0.76-1.46)
== END 2023-08-24 07:24 | disposition home or self-care (01) ==
LOC: LAB 07:23
PROVIDERS: PCP Family Medicine; Visit Provider Family Medicine
DX: G40.909 Epilepsy, unspecified, not intractable, without status epilepticus (principal)
CPT/HCPCS: 36415; 80053; 84439; 84443; 85025

== ENCOUNTER 2024-02-26 06:35 | Outpatient (OUT) | payer MEDICARE, MEDICAID, SELFPAY ==
[2024-02-26 07:02] LABS: Basophils Percent Auto 0.6 % (0.2-2.0); Eosinophils Absolute Auto 0.3 10^3/uL (0.0-0.7); Hematocrit 42.9 % (42.0-54.0); Lymphocytes Absolute Auto 2.3 10^3/uL (1.2-3.8); Lymphocytes Percent Auto 44.6 % (20.5-60.0); Mean Corpuscular HGB Conc 32.6 g/dL (29.9-35.2); Mean Corpuscular Hemoglobin 30.8 pg (25.9-34.0); Mean Corpuscular Volume 94.3 fL (80.0-94.0); Mean Platelet Volume 9.1 fL (9.5-13.5); Monocytes Absolute Auto 0.4 10^3/uL (0.3-0.8); Monocytes Percent Auto 7.5 % (1.7-12.0); Neutrophils Absolute Auto 2.1 10^3/uL (1.4-6.5); Neutrophils Percent Auto 42.3 % (43.0-75.0); Platelet Count 274 10^3/uL (150-450); Red Blood Count 4.55 10^6/uL (4.70-6.10); Red Cell Distribution Width 11.6 % (11.0-15.0)
[2024-02-26 07:51] LABS: Alanine Aminotransferase 34 U/L (16-63); Albumin Globulin Ratio 0.8; Albumin Level 3.3 g/dL (3.4-5.0); Alkaline Phosphatase 66 U/L (46-116); Anion Gap 6.2; Aspartate Amino Transferase 19 U/L (15-37); BUN Creatinine Ratio 15.3; Bilirubin Total 0.2 mg/dL (0.2-1.0); Carbon Dioxide 37.1 mmol/L (21.0-32.0); Chloride 107 mmol/L (98-107); Estimated GFR (African America >60 (>=60 mL/min/1.73m^2); Estimated GFR (Non-African Ame >60 (>=60 mL/min/1.73m^2); Globulin 3.9 g/dL; Glucose 77 mg/dL (74-106); Magnesium 2.1 mg/dL (1.8-2.4); Potassium 4.3 mmol/L (3.5-5.1); Sodium 146 mmol/L (136-145); Total Protein 7.2 g/dL (6.4-8.2)
== END 2024-02-26 06:36 | disposition home or self-care (01) ==
PROVIDERS: PCP Family Medicine; Visit Provider Family Medicine
DX: E03.8 Other specified hypothyroidism (principal); M62.838 Other muscle spasm; Z79.899 Other long term (current) drug therapy
CPT/HCPCS: 36415; 80053; 83735; 84443; 85025

== ENCOUNTER 2024-08-22 06:34 | Outpatient (OUT) | payer MEDICARE, MEDICAID, SELFPAY ==
--- OUTSIDE RECORDS SUMMARY | 2024-08-22 06:36 | XMS_ITS | CCD ---
Author Organization [facility] Care Team Providers Care Transmission Maintenance Supervisor Name Role Phone Consuelo MCGARRY, Nour Unavailable Ankush Walls MD Unavailable Moga DATA OPERATIONS MANAGER-GLASS VIAL BENDING CONVEYOR FEEDER, Crystal Unavailable FRANCISCO, DR CIERRA Ahmadi Primary Care Unavailable SINGH, DR CIERRA Ahmadi Consulting Unavailable SINGH, DR CIERRA Ahmadi Attending Unavailable SINGH, DR CIERRA Ahmadi Admitting Unavailable GRILLIS ., DR ERIKA Cabral Consulting Unavaila ble GRILLIS ., DR ERIKA Cabral Attending Unavaila ble SINGH, DR CIERRA Ahmadi Primary Care Unavailable GRILLIS ., DR ERIKA Cabral Admitting Unavaila ble NICOLE ., SWAPNA Consulting Unavailable NEFCY, ABELARDO Consulting Unavailable GEMBUS, CIERRA Consulting Unavailable SINGH, DR CIERRA Ahmadi Consulting Unavailable SINGH, DR CIERRA Ahmadi Attending Unavailable SINGH, DR CIERRA Ahmadi Admitting Unavailable SINGH, DR CIERRA Ahmadi Primary Care Unavailable GRILLIS ., DR ERIKA Cabral Admitting Unavaila ble GRILLIS ., DR ERIKA Cabral Consulting Unavaila ble GRILLIS ., DR ERIKA Cabral Attending Unavaila ble SINGH, DR CIERRA Ahmadi Primary Care Unavailable ZIEBER, DR GENNY Lama Consulting Unavailable SINGH, DR CIERRA Ahmadi Consulting Unavailable SINGH, DR CIERRA Ahmadi Attending Unavailable SINGH, DR CIERRA Ahmadi Admitting Unavailable SINGH, DR CIERRA Ahmadi Primary Care Unavailable Todd Avendano A Primary Care Provider [phone] Consuelo MCGARRY Nour Unavailable Ankush Walls MD Unavailable Moga DATA OPERATIONS MANAGER-GLASS VIAL BENDING CONVEYOR FEEDER, Crystal Unavailable PROVIDER, UNKNOWN Admitting Unavailable PROVIDER, UNKNOWN Attending Unavailable PROVIDER, UNKNOWN Admitting Unavailable PROVIDER, UNKNOWN Attending Unavailable SINGH, CIERRA Admitting Unavailable SINGH, CIERRA Attending Unavailable SINGH, CIERRA Admitting Unavailable SINGH, CIERRA Attending Unavailable NICOLE, SWAPNA Attending Unavailable NICOLE, SWAPNA Admitting Unavailable SINGH, CIERRA Admitting Unavailable SINGH, CIERRA Attending Unavailable DOLCE, KENYA Wagner Referring Unavailable DOLCE, KENYA Wagner Attending Unavailable DOLCE, KENYA Wagner Attending Unavailable DOLCE, KENYA Wagner Attending Unavailable DOLCE, KENYA Wagner Referring Unavailable Elder, Todd A Primary Care Provider [phone] CARIE BRISENO Attending Unavailable SELF Referring Unavailable ELDER, TODD A Primary Care Unavailable SUZANNACARIE LIM Attending Unavailable ELDER, TODD A Primary Care Unavailable SUZANNACARIE LIM Attending Unavailable SELF Referring Unavailable ELDER, TODD A Primary Care Unavailable Unavailable Primary Care Provider Unavailabl e Allergies Allergy Classification Reported Allergen(s) Allergy Type Date of Onset Reaction(s) Facility (12 sources) Cefaclor; Translations: [CEFACLOR] Drug Allergy 09-25-19 09 Hives [facility] (5 sources) Environmental allergy; Translations: [ENVIRONMENTAL] Propensity to adverse reactions to substance 06-12-19 13 Itching [facility] (12 sources) Erythromycin / sulfiSOXAZOLE; Translations: [ERYTHROMYCIN-SUL FISOXAZOLE] Drug Allergy 04-14-19 10 Other, Intolerance [facility] (1 source) Cefaclor Drug Allergy 03-19-19 15 [facility] (1 source) Erythromycin / sulfiSOXAZOLE Drug Allergy 03-19-19 15 [facility] (7 sources) Seasonal allergy; Translations: [SEASONAL ALLERGIES] Allergy to substance 06-12-19 13 Itching [facility] Medications Current Medications Medication Drug Class(es) Dates Sig (Normalized) Sig (Original) acetaminophen 325 mg oral tablet (6 sources) Start: 09-24-2008 ACETAMINOPHEN 325 MG TAB takes one to two tablets every 4-6 hours as needed 0 09/24/2008 Active Comment on above: takes one to two tab lets every 4-6 hours as needed ascorbic acid 250 mg oral tablet (7 sources) Vitamin C take 1 tablet by mouth once daily Ascorbic acid 250 MG tablet Take 1 tablet by mouth daily. Active Comment on above: Take 250 mg by mouth once daily. bisacodyl 10 mg rectal suppository (6 sources) Stimulant Laxative Start: 09-24-2008 bisacodyl(DULCOLAX 10 MG RECTAL SUPPOSITORY) takes as directed as needed rectally 0 09/24/2008 Active Comment on above: takes as directed as needed rectally carBAMazepine 200 mg oral tablet (7 sources) Mood Stabilizer take 2 tablets by mouth twice daily carBAMazepine 200 MG tablet Take 2 tablets by mouth 2 times daily. Active take [address] [facility] twice daily, then take 1 capsule by mouth every twelve hours carBAMazepine ER (CARBATROL) 200 mg 12 h r capsule Take 200 mg by mouth twice daily. Active Comment on above: Take 200 mg by mouth twice daily. cholecalciferol 0.125 mg oral tablet (7 sources) Vitamin D take 1 tablet by mouth once daily cholecalciferol 125 MCG (5000 UNIT) tablet Take 1 tablet by mouth daily. Active Comment on above: Take 5,000 Units by mouth once daily. clindamycin 300 mg oral capsule (8 sources) Lincosamide Antibacterial Start: 021 take 1 capsule by mouth four times daily clindamycin (CLEOCIN) 300 MG capsule TAKE 1 CAPSULE BY MOUTH 4 TIMES DAILY FOR 7 DAYS. 28 Capsule 0 05/24/2020 Active Start: 09-24-2008 CLINDAMYCIN 1 % TOPICAL SOLN Apply to affected area(s) twice daily. 0 09/24/2008 Active Comment on above: Apply to affected ar ea(s) twice daily. guaiFENesin (6 sources) guaifenesin (MUC US RELIEF ORAL) Take by mouth. Active guaifenesin (MUC US RELIEF ORAL) Take by mouth. 0 Active Comment on above: Take by mouth. guanFACINE 1 mg oral tablet (10 sources) Central alpha-2 Adrenergic Agonist Start: 05-06-2020 take 1 tablet by mouth twice daily guanfacine (TENEX) 1 MG tablet TAKE ONE TABLET BY MOUTH TWICE A DAY TENEX 05/06/2020 Active Start: 09-24-2008 GUANFACINE 1 M G TAB Take one(1) tablet daily. 0 09/24/2008 Active Comment on above: Take one(1) tablet d aily. hydrocortisone 25 mg/ml topical cream (16 sources) Corticosteroid Start: 04-02-2019 hydrocortisone 2.5 % cream Apply to affected areas on trunk and extremities two times daily Mon to Fri 453.6 g 3 04/02/2019 Active Start: 01-25-2015 End: 11-19-2023 hydrocortisone 2.5 % cream A pply up to twice daily to active areas as needed 60 g 5 11/19/2023 Active hydrocortisone 2 .5 % Cream Apply 1 Application topically 2 times daily as needed. Active Comment on above: Apply to affected ar eas on trunk and extremities two times daily Mon to Fri Apply to affected ar eas on trunk and extremities twice daily as needed Mon to Fri lactulose 667 mg/ml oral solution (6 sources) Osmotic Laxative Start: 09-25-19 09 lactulose(ENULOSE 10 GRAM/15 ML ORAL SOLN) takes one tablespoon three times daily 0 09/24/2008 Active Comment on above: takes one tablespoon three times daily levothyroxine sodium 0.075 mg oral tablet (11 sources) l-Thyroxine Start: 05-07-19 take 1 tablet by mouth once daily levothyroxine (SYNTHROID) 75 MCG tablet TAKE ONE TABLET BY MOUTH ONCE DAILY SYNTHROID 05/06/2020 Active Levothyroxine 75 mcg cap Take by mouth once daily. Active Comment on above: Take by mouth once d aily. linaclotide 0.29 mg oral capsule (11 sources) Guanylate Cyclase-C Agonist Start: 05-06-2020 take 1 capsule by mouth once daily Linzess 290 MCG CAPS capsule Take 290 mcg by mouth daily. 05/06/2020 Active take 6 capsules by m outh once daily in the morning linaCLOtide (LINZESS) 290 mcg capsule Ta ke by mouth DAILY (6 AM). Active Comment on above: Take by mouth DAILY (6 AM). lithium carbonate 150 mg oral capsule (6 sources) Start: 09-24-2008 LITHIUM CARBONATE 150 MG CAP Take one(1) tablet two(2) times daily. 0 09/24/2008 Active Comment on above: Take one(1) tablet t wo(2) times daily. loratadine 10 mg oral tablet (7 sources) Start: 09-24-2008 loratadine(CLARITIN 10 MG TAB) takes one tablet daily as needed as directed 0 09/24/2008 Active Comment on above: takes one tablet ld ly as needed as directed mineral oil/hydrophil petrolatum (PETROLATUM) oint (6 sources) Start: 04-03-2019 mineral oil/hydrophil petrolatum (PETROLATUM) oint Please apply to arms 3-4 times daily and as needed to prevent frictional irritation 04/03/2019 Active Start: 04-03-2019 mineral oil/hy drophil petrolatum (PETROLATUM) oint Please apply to arms 3-4 times daily and as needed to prevent frictional irritation 0 04/03/2019 Active Comment on above: Please apply to arms 3-4 times daily and as needed to prevent frictional irritation mometasone furoate 0.05 mg/actuat metered dose nasal spray (6 sources) Corticosteroid Start: 09-25-19 09 mometasone furoate(NASONEX 50 MCG/ACTUATION SPRAY) [place] twice in each nostril once daily. 0 09/24/2008 Active Comment on above: [place] twice in each nostril once daily. montelukast 10 mg oral tablet (11 sources) Leukotriene Receptor Antagonist Start: 05-07-19 take 1 tablet by mouth at bedtime montelukast (SINGULAIR) 10 MG tablet Take 10 mg by mouth at bedtime. 05/06/2020 Active Comment on above: Take 10 mg by mouth daily at bedtime. Multiple Vitamin (Multi-Vitamins) tablet (4 sources) Start: 05-07-19 take 1 tablet by mouth once daily Multiple Vitamin (Multi-Vitamins) tablet Take 1 Tablet by mouth daily. 05/06/2020 Active Start: 05-06-2020 take 1 tablet by dulce th once daily Multiple Vitamin (Multi-Vitamins) tablet Take 1 Tablet by mouth daily. 0 05/06/2020 Active multivitamins(DAILY MULTIVITAMIN TAB) (6 sources) Start: 09-24-2008 multivitamins(DAILY MULTIVITAMIN TAB) Take one(1) tablet daily. 0 09/24/2008 Active Comment on above: Take one(1) tablet d aily. ondansetron 4 mg oral tablet (7 sources) Serotonin-3 Receptor Antagonist take 1 tablet by mouth every six hours as needed Ondansetron 4 MG tablet Take 1 tablet by mouth every 6 hours as needed. Active Comment on above: Take 4 mg by mouth a s directed. petrolatum 1 mg/mg topical ointment (4 sources) Start: 04-03-2019 Mineral Oil-Hydrophil Petrolat OINT Please apply to arms 3-4 times daily and as needed to prevent frictional irritation 04/03/2019 Active phenol (1 source) Phenol (VASELINE CARBOLATED PETROLEUM EX) Apply topically. Active Polyethylene Glycols (6 sources) polyethylene gly col 3350 ([id number] ORAL) Take by mouth. Active polyethylene gly col 3350 ([id number] ORAL) Take by mouth. 0 Active Comment on above: Take by mouth. Promethazine (6 sources) Phenothiazine promethazine HCl (PHENERGAN ORAL) Take by mouth. Active promethazine HCl (PHENERGAN ORAL) Take by mouth. 0 Active Comment on above: Take by mouth. risperiDONE 0.25 mg oral tablet (1 source) Atypical Antipsychotic take 1 tablet by mouth three times daily risperiDONE 0.25 MG tablet Take 1 tablet by mouth 3 (three) times a day. Active sennosides, fci 8.6 mg oral tablet (7 sources) take 2 tablets by mouth twice daily Senna 8.6 MG tablet Take 2 tablets by mouth 2 times daily. Active take 1 tablet by mouth twice ld ly senna (SENOKOT) 8.6 mg tab Take 8.6 mg by mouth twice daily. Active Comment on above: Take 8.6 mg by mouth twice daily. silver sulfADIAZINE 10 mg/ml topical cream (6 sources) Sulfonamide Antibacterial Start: 09-24-2008 silver sulfadiazine(SSD AF 1 % TOPICAL CREAM) applies to affected area daily as directed 0 09/24/2008 Active Comment on above: applies to affected area daily as directed triamcinolone acetonide 1 mg/ml topical cream (10 sources) Corticosteroid Start: 05-12-2024 End: 05-12-2024 triamcinolone acetonide (KENALOG) 0.1 % cream Indications: Mycosis fungoides, unspecified body region (HCC) , Pruritus Apply a small amount to pink patches on the hips, thighs, and buttocks twice daily Sunday-Sunday for four weeks then decrease to once per day, Sunday-Sunday. Avoid face, groin folds, and armpits. Can hold application when no pink rash seen. 453.6 g 1 05/12/2024 Active Start: 11-19-2023 triamcinolone acetonide (KENALOG) 0.1 % cream Apply to affected areas twice daily for two weeks, then resume hydrocortisone 80 g 11/19/2023 Active triamcinolone 0. 1 % Cream cream Apply 1 Application topically. Active 24 hr divalproex sodium 250 mg extended release oral tablet (11 sources) Mood Stabilizer, Anti-epileptic Agent Start: 05-06-2020 take 1 tablet by mouth every twelve hours divalproex ER (DEPAKOTE ER) 250 MG ER tablet TAKE ONE TABLET BY MOUTH EVERY 12 HOURS DEPAKOTE ER 05/06/2020 Active Start: 09-24-2008 divalproex sod ium(DEPAKOTE 500 MG TAB) takes three tablets at bedtime daily 0 09/24/2008 Active Comment on above: takes three tablets at bedtime daily zinc gluconate 50 mg oral tablet (7 sources) take 1 tablet by mouth once daily Zinc Gluconate 50 MG tablet Take 1 tablet by mouth daily. Active ZINC GLUCONATE O RAL Take by mouth. Active ZINC GLUCONATE O RAL Take by mouth. 0 Active Comment on above: Take by mouth. zinc oxide 130 mg/ml topical cream (1 source) Zinc Oxide (Joyce tin) 13 % Cream Apply topically at bedtime as needed. Active Problems Active Problems Problem Classification Problem Date Documented Da te Episodic/Chronic Allergic reactions (4 sources) Irritant contact dermatitis; Translations: [Irritant contact dermatitis, unspecified cause] Onset: 05-12-2024 05-12-2024 Episodic Attention-deficit, conduct, and disruptive behavior disorders (1 source) Attention deficit hyperactivity disorder; Translations: [Attention-deficit hyperactivity disorder, unspecified type] Onset: 08-20-2024 08-20-2024 Chronic Blindness and vision defects (1 source) Astigmatism; Translations: [Unspecified astigmatism, unspecified eye] Onset: 08-20-2024 08-20-2024 Episodic Developmental disorders (3 sources) Unspecified intellectual disabilities; Translations: [Severe intellectual disability] Onset: 01-23-2022 08-20-2024 Chronic Epilepsy; convulsions (3 sources) Epilepsy, unspecified, not intractable, without status epilepticus; Translations: [Seizure disorder] Onset: 05-09-2022 08-20-2024 Chronic Intestinal obstruction without hernia (4 sources) Other intestinal obstruction unspecified as to partial versus complete obstruction; Translations: [OTH INTEST OBS UNS PART VS CMPL OBS] Onset: 03-08-2022 Episodic Miscellaneous mental health disorders (1 source) Dissociative disorder; Translations: [Dissociative and conversion disorder, unspecified] Onset: 08-20-2024 08-20-2024 Chronic Mood disorders (2 sources) Bipolar disorder, unspecified; Translations: [Bipolar disorder] Onset: 01-23-2022 08-20-2024 Chronic Non-Hodgkin`s lymphoma (17 sources) Mycosis fungoides (clinical); Translations: [Mycosis fungoides, unspecified site] Onset: 06-18-2008 05-18-2020 Chronic Other aftercare (5 sources) Other m[facility]p (current) drug therapy; Translations: [OTH MRI SPECIALIST CURRENT DRUG THERAPY] Onset: 01-23-2022 Episodic Other congenital anomalies (1 source) Angelman syndrome; 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] Onset: 08-20-2024 08-20-2024 Chronic Other gastrointestinal disorders (1 source) Chronic constipation; Translations: [Other constipation] Onset: 08-20-2024 08-20-2024 Episodic Other gastrointestinal disorders (1 source) Oral phase dysphagia; Translations: [Dysphagia, oral phase] Onset: 08-20-2024 08-20-2024 Episodic Other gastrointestinal disorders (1 source) Pharyngeal dysphagia; Translations: [Dysphagia, pharyngeal phase] Onset: 08-20-2024 08-20-2024 Episodic Other inflammatory condition of skin (1 source) Itching of skin; Translations: [Pruritus, unspecified] Episodic Other upper respiratory disease (1 source) Seasonal allergic rhinitis; Translations: [Other seasonal allergic rhinitis] Onset: 08-20-2024 08-20-2024 Chronic Thyroid disorders (1 source) Hypothyroidism; Translations: [Hypothyroidism, unspecified] Onset: 08-20-2024 08-20-2024 Chronic Past or Other Problems Problem Classification Problem Date Documented Da te Episodic/Chronic Disorders of teeth and jaw (4 sources) Dental caries; Translations: [Dental caries, unspecified] Onset: 05-13-2020 05-13-2020 Episodic E Codes: Natural/environment (1 source) Exposure to other specified factors, initial encounter; Translations: [EXPOSURE OTHER SPEC FACTORS INITIAL] Onset: 01-23-2022 Episodic Menopausal disorders (1 source) Hormone replacement therapy; Translations: [HORMONE REPLACEMENT THERAPY] Onset: 01-23-2022 Episodic Other inflammatory condition of skin (4 sources) Pruritus, unspecified; Translations: [Unspecified pruritic disorder] Onset: 11-19-2023 11-19-2023 Episodic Other injuries and conditions due to external causes (4 sources) Food in esophagus causing other injury, initial encounter; Translations: [FOOD ESOPH CAUS OTH INJURY INIT ENC] Onset: 01-16-2022 Episodic Other injuries and conditions due to external causes (1 source) Foreign body in stomach, initial encounter; Translations: [FOREIGN BODY STOMACH INITIAL ENCNTR] Onset: 01-23-2022 Episodic Results Test Name Value Interpretation Reference Range Facility CNOVon 08-04-2024 CNOV Office Visit (DERMMN) MILAN RAMOS ([id number]) 1985 M Date Time Provider Department 08/04/24 10:40 AM CARIE BRISENO DERMMN During your visit today, we recorded the following information about you: Carie Briseno MD 08/06/2024 8:52 PM Signed Established Patient LV 05/12/2024 Chief Complaint: Mycosis Fungoides History of Present Ilness: Milan Ramos is a 38 year old male Patient is here for: 1) 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 No Overall Status: stable Significant improvement in itch. Using triamcinolone cream once to twice a week as needed Current treatment: triamcinolone 0.1% cream , tanning bell for 10 minutes every other week (went last week) Past treatments: Hydrocortisone cream 2.5% as needed. Moisturizing lotion daily Patient resides at [facility], here with Mother and Father Pertinent Past Medical History: History of skin cancer or atypical nevi No Per Dr. 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 (patient is non-verbal) Pertinent Family medical history: History of melanoma No Pertinent Family medical history: History of melanoma No Review of Systems: Constitutional: Denies fever, chills, night sweats, unintentional weight loss. Skin per HPI. No other new/concerning skin growth. Physical Exam: General: well appearing, of stated age, in no acute distress Neurology: alert and oriented times three Psychiatry: in a happy mood Skin: Fields skin type: II Skin exam performed of face, scalp, neck, chest, abdomen, back, bilateral upper extremities, bilateral lower extremities Skin exam normal with the exception of: Left > Right hip and groin with faint pink patches, minimal scale, without signs of excoriation Chest with scattered hypopigmented patches Buttocks with faint erythema without signs of excoriation No plaques Assessment and Plan: 1. CTCL, MF type, Stage IA BSA <10% - Significant improvement on triamcinolone 0.1% cream as needed - Continue triamcinolone 0.1% cream twice daily - as needed. Apply to pink patches on the hips, thighs, and buttocks twice daily Sunday-Sunday as needed. Avoid face, groin folds, and armpits. Can hold application when no pink rash seen. - Hydrocortisone cream 2.5% twice daily as needed to hips and buttocks. - Continue tanning every other week 10 min. If any burning let us know. Discuss tanning and known increased risk of skin cancer so want to keep this therapy at minimal level. 2. Irritant contact dermatitis, buttock 3. Incontinence -Improvement in buttock rash with more frequent toileting schedule as area is kept dry -Continue to use Desitin barrier cream daily as needed -To avoid irritant contact dermatitis, recommend frequent toileting schedule every 2-3 hours Return to clinic every year or sooner if something concerning arises. The documentation for this note was completed by Carie Knight RN acting as scribe for Carie Briseno MD. August 04, 2024 10:40 AM. Summer Parker MD I agree with the Chief Complaint, ROS, and Past Histories independently gathered by the clinical mission support specialist and the remaining scribed note accurately describes my personal service to the patient. I saw and evaluated Milan Ramos, as well as developed and discussed the assessment and plan with the Resident. I have reviewed the Resident's note and agree with the history and physical examination as described, as well as the assessment and plan of care. The resident's note was annotated by me as needed to reflect my direct input. MD Keith Flores Angela, MD 08/04/2024 11:24 AM Addendum CTCL, MF type, Stage IA - stable to improved - Continue triamcinolone 0.1% cream twice daily - as needed. Apply to pink patches on the hips, thighs, and buttocks twice daily Sunday-Sunday as needed. Avoid face, groin folds, and armpits. Can hold application when no pink rash seen. - Hydrocortisone cream 2.5% twice daily as needed to hips and buttocks. - Continue tanning every other week 10 min. If any burning let us know. Discuss tanning and known increased risk of skin cancer so want to keep this therapy at minimal level. Irritant contact dermatitis, buttock - improved -Continue to use Desitin barrier cream daily as needed to buttocks -To avoid irritant contact dermatitis, recommend frequent toileting schedule every 2-3 hours Follow up in 1 year or sooner if needed Referring Provider: SELF [[id number]] Allergies As of Date: 08/04/2024 Noted Allergy Reaction CECLOR (CEFACLOR) 09/24/2008 4 - Hives PEDIAZOLE (ERYTHROMYCIN-SULFIS OXA*04/13/2009 5 - Intolerance SEASONAL ALLERGIES 06/11/2012 9 - Itching Date Reviewed: 08/04/2024 Reviewed by: Renny (more content not included)... [facility] ([id number]) 1985 M Date Time Provider Department 06/10/24 CARIE BRISENO During your visit today, we recorded the following information about you: Ivory Diez 06/10/2024 9:46 AM Signed Received phone call from Reina from [facility]. Asked if triamcinolone acetonide (KENALOG) 0.1 % cream be used as PRN? Also can nurse's stop giving patient Desitin cream? Best number to call Reina is [phone] Carie Briseno MD 06/10/2024 3:30 PM Signed Per last note: Triamcinolone 0.1% cream: Apply to pink patches on the hips, thighs, and buttocks twice daily Sunday-Sunday as needed. Avoid face, groin folds, and armpits. Can hold application when no pink rash seen. For Desitin, there was concern for irritation on the buttocks at last appointment from overnight moisture/incontinenc e. Best to apply desitin to buttocks every night if this is still true. MD Jason Flores Courtney 06/11/2024 2:26 PM Signed Spoke to nurse staff at [place], Gave instructions to staff how and when to apply creams. Allergies As of Date: 06/10/2024 Noted Allergy Reaction CECLOR (CEFACLOR) 09/24/2008 4 - Hives PEDIAZOLE (ERYTHROMYCIN-SULFIS OXA*04/13/2009 5 - Intolerance SEASONAL ALLERGIES 06/11/2012 9 - Itching Date Reviewed: 05/12/2024 Reviewed by: Olivia Bishop, FERMIN - Fully Assessed Prescriptions as of 06/11/2024 - triamcinolone acetonide (KENALOG) 0.1 % cream Apply a small amount to pink patches on the hips, thighs, and buttocks twice daily Sunday-Sunday for four weeks then decrease to once per day, Sunday-Sunday. Avoid face, groin folds, and armpits. Can hold application when no pink rash seen. - triamcinolone acetonide (KENALOG) 0.1 % cream Apply to affected areas twice daily for two weeks, then resume hydrocortisone - hydrocortisone 2.5 % cream Apply up to twice daily to active areas as needed - carBAMazepine ER (CARBATROL) 200 mg 12 hr capsule Take 200 mg by mouth twice daily. - linaCLOtide (LINZESS) 290 mcg capsule Take by mouth DAILY (6 AM). - polyethylene glycol 3350 ([id number] ORAL) Take by mouth. - ascorbic acid, vitamin C, (VITAMIN C) 250 mg tablet Take 250 mg by mouth once daily. - cholecalciferol (VITAMIN D-3) 5,000 unit tab Take 5,000 Units by mouth once daily. - ZINC GLUCONATE ORAL Take by mouth. - guaifenesin (MUCUS RELIEF ORAL) Take by mouth. - promethazine HCl (PHENERGAN ORAL) Take by mouth. - mineral oil/hydrophil petrolatum (PETROLATUM) oint Please apply to arms 3-4 times daily and as needed to prevent frictional irritation - hydrocortisone 2.5 % cream Apply to affected areas on trunk and extremities two times daily Mon to Sun - senna (SENOKOT) 8.6 mg tab Take 8.6 mg by mouth twice daily. - ondansetron (ZOFRAN) 4 mg tablet Take 4 mg by mouth as directed. - Levothyroxine 75 mcg cap Take by mouth once daily. - montelukast (SINGULAIR) 10 mg tablet Take 10 mg by mouth daily at bedtime. - lactulose(ENULOSE 10 GRAM/15 ML ORAL SOLN) takes one tablespoon three times daily - bisacodyl(DULCOLAX 10 MG RECTAL SUPPOSITORY) takes as directed as needed rectally - ACETAMINOPHEN 325 MG TAB takes one to two tablets every 4-6 hours as needed - loratadine(CLARITIN 10 MG TAB) takes one tablet daily as needed as directed - silver sulfadiazine(SSD AF 1 % TOPICAL CREAM) applies to affected area daily as directed - CLINDAMYCIN 1 % TOPICAL SOLN Apply to affected area(s) twice daily. - GUANFACINE 1 MG TAB Take one(1) tablet daily. - divalproex sodium(DEPAKOTE 500 MG TAB) takes three tablets at bedtime daily - mometasone furoate(NASONEX 50 MCG/ACTUATION SPRAY) [place] twice in each nostril once daily. - multivitamins(DAILY MULTIVITAMIN TAB) Take one(1) tablet daily. - LITHIUM CARBONATE 150 MG CAP Take one(1) tablet two(2) times daily. 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 Ramos nonverbal Patient is here for: 1) MF follow up - reports a lot of itching, especially after bathing, worse on the hips and buttocks - wears incontinence underwear overnight and sometimes itching gets worse - hydrocortisone helps for short periods of time - Short lived improvement with triamcinolone, used for 2 weeks, only improvement first two days Current treatment: - Hydrocortisone cream 2.5% as needed - tanning bell for 10 minutes every other week (local tanning salon as no nbUVB close to home). Patient able to lay down in bed and calm during treatments -Previously: 2 weeks of triamcinolone Patient resides at [facility] Pertinent Past Medical History: History of skin cancer or atypical nevi No Per Dr. 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 (patient is non-verbal) Pertinent Family medical history: History of melanoma No Review of Systems: Constitutional: Denies fever, chills, night sweats, unintentional weight loss. Skin per HPI. No other new/concerning skin growth. 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 Medical complex condition is somewhat flaring today at the hips and is symptomatic with pruritus. CTCL, MF type, Stage IA BSA <10%. Chronic condition with flaring today. Not at treatment goal. Pruritus on b/l hips - To active patches on left hip, begin triamcinolone 0.1% cream twice daily -. R/B/A discussed. Apply to pink patches on the hips, thighs, and buttocks twice daily Sunday-Sunday as needed. Avoid face, groin folds, and armpits. Can hold application when no pink rash seen. - Discussed importance of moisturizing daily with gentle products - Continue tanning every other week 10 min. If any burning let us know. Discuss tanning and known increased risk of skin cancer so want to keep this therapy at minimal level. -Discussed possibility of switching from tanning bed to nbUVB therapy and trying to obtain home unit, will consider in future if increased strength of topical steroid is unsuccessful 3. Irritant contact dermatitis, buttock 4. Incontinence -Recommend daily, liberal use of zinc barrier paste such as Desitin before bedtime Return to clinic 3 months or sooner if something concerning arises. The documentation for this note was completed by Olivia Bishop RN acting as scribe for Carie Briseno MD. May 12, 2024 10:37 AM. Apollo Ramsey MD, MS PGY2 Dermatology Resident All documentation from previous visit of 11/19/2023 was copied and pasted, documentation has been reviewed and edited as necessary for today's visit. I agree with the Chief Complaint, ROS, and Past Histories independently gathered by the clinical mission support specialist and the remaining scribed note accurately describes my personal service to the patient. I saw and evaluated Milan Ramos, as well as developed and discussed the assessment and plan with the Resident. I have reviewed the Resident's note and agree with the history and physical examination as described, as well as the assessment and plan of care. The resident's note was annotated by me as needed to reflect my direct input. Carie Briseno MD Allergies As of Date: 05/12/2024 Noted Allergy Reaction CECLOR (CEFACLOR) 09/24/2008 4 - Hives PEDIAZOLE (ERYTHROMYCIN-SULFIS OXA*04/13/2009 5 - Intolerance SEASONAL ALLERGIES 06/11/2012 9 - Itching Date Reviewed: 05/12/2024 Reviewed by: Olivia Bishop RN - Fully Assessed Reason for Visit: Mycosis fungoides, unspecified body region (HCC) [Other] Primary Visit Diagnosis:Mycosis fungoides, unspecified body region (more content not included)... Normal [facility] CNOVon 11-19-2023 CNOV Office Visit (DERMMN) MILAN RAMOS ([id number]) 1985 M Date Time Provider Department 11/19/23 11:40 AM CARIE BRISENO DERMMN During your visit today, we recorded the following information about you: Carie Briseno MD 11/24/2023 11:42 AM Signed Est Patient JAMES: 01/[birth year] Chief Complaint: Mycosis Fungoides History of Present Ilness: Milan Ramos is a 38 year old male Patient is here for: 1) MF follow up New lesions: caregiver says he has been itching his hips a lot Says rash is still present on back Current treatment: Hydrocortisone cream 1% vaseline to arms to avoid friction per paperwork - tanning bell for 10 minutes once-twice month Patient resides at [facility] Pertinent Past Medical History: History of skin cancer or atypical nevi No Per Dr. 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 (patient is non-verbal) Pertinent Family medical history: History of melanoma No Review of Systems: Constitutional: Denies fever, chills, night sweats, unintentional weight loss. Skin per HPI. No other new/concerning skin growth. 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 CTCL, MF type, Stage IA - stable since previous visit, BSA <10% Pruritus, mild on b/l hips - Continue tanning every other week 10 min. If any burning let us know. Discuss tanning and known increased risk of skin cancer so want to keep this therapy at minimal level. - For two weeks, use triamcinolone cream twice daily to affected areas, then return to hydrocortisone - Continue hydrocortisone 2.5% cream up to twice daily as needed to any active patches. Refill provided today. - Discussed importance of moisturizing daily with gentle products Return to clinic 6 months or sooner if something concerning arises. The documentation for this note was completed by Myrna Navarro RN acting as scribe for Carie Briseno MD. November 19, 2023 7:37 AM. Debbi Dunham MD Dermatology, PGY-3 I agree with the Chief Complaint, ROS, and Past Histories independently gathered by the clinical mission support specialist and the remaining scribed note accurately describes my personal service to the patient. I saw and evaluated Milan Lachelle Ramos, as well as developed and discussed the assessment and plan with the Resident. I have reviewed the Resident's note and agree with the history and physical examination as described, as well as the assessment and plan of care. The resident's note was annotated by me as needed to reflect my direct input. MD Roly Flores, MD Debbi 11/19/2023 12:04 PM Signed Mycosis Fungoides - Continue tanning every other week 10 min. If any burning let us know. - For two weeks, use triamcinolone cream twice daily to affected areas, then return to hydrocortisone - Continue hydrocortisone 2.5% cream up to twice daily as needed to any active patches. Refill provided today. - Discussed importance of moisturizing daily with gentle products Referring Provider: SELF [200] Allergies As of Date: 11/19/2023 Noted Allergy Reaction CECLOR (CEFACLOR) 09/24/2008 4 - Hives PEDIAZOLE (ERYTHROMYCIN-SULFIS OXA*04/13/2009 5 - Intolerance SEASONAL ALLERGIES 06/11/2012 9 - Itching Date Reviewed: 11/19/2023 Reviewed by: Lakia Cisneros OCCA - Fully Assessed Reason for Visit: Derm Problem [33] Primary Visit Diagnosis:Mycosis fungoides, unspecified body region (HCC) [C84.00] Other Visit Diagnosis:Pruritus [L29.9] Order(s):triamcinolo ne acetonide (KENALOG) 0.1 % creamApply to affected areas twice daily for two weeks, then resume hydrocortisoneDisp: 80 gRfl: 0 hydrocortisone 2.5 % creamApply up to twice daily to active areas as neededDisp: 60 gRfl: 5 Prescriptions as of 11/24/2023 - triamcinolone acetonide (KENALOG) 0.1 % cream Apply to affected areas twice daily for two weeks, then resume hydrocortisone - hydrocortisone 2.5 % cream Apply up to twice daily to active areas as needed - carBAMazepine ER (CARBATROL) 200 mg 12 hr capsule Take 200 mg by mouth twice daily. - linaCLOtide (LINZESS) 290 mcg capsule Take (more content not included)... Normal [facility] 11-19-2023 CNPN Telephone (DERMMN) MILAN RAMOS ([id number]) 1985 M Date Time Provider Department 11/19/23 CARIE BRISENO DERMMN During your visit today, we recorded the following information about you: Parish Haskins 11/19/2023 3:22 PM Signed Nurse with [facility] called to clarify Hydrocortisone cream instructions - daily or as needed. Stated both medication and visit notes state as needed in the instructions. Allergies As of Date: 11/19/2023 Noted Allergy Reaction CECLOR (CEFACLOR) 09/24/2008 4 - Hives PEDIAZOLE (ERYTHROMYCIN-SULFIS OXA*04/13/2009 5 - Intolerance SEASONAL ALLERGIES 06/11/2012 9 - Itching Date Reviewed: 11/19/2023 Reviewed by: Lakia Cisneros OCCA - Fully Assessed Prescriptions as of 11/19/2023 - triamcinolone acetonide (KENALOG) 0.1 % cream Apply to affected areas twice daily for two weeks, then resume hydrocortisone - hydrocortisone 2.5 % cream Apply up to twice daily to active areas as needed - carBAMazepine ER (CARBATROL) 200 mg 12 hr capsule Take 200 mg by mouth twice daily. - linaCLOtide (LINZESS) 290 mcg capsule Take by mouth DAILY (6 AM). - polyethylene glycol 3350 (POR4649 ORAL) Take by mouth. - ascorbic acid, vitamin C, (VITAMIN C) 250 mg tablet Take 250 mg by mouth once daily. - cholecalciferol (VITAMIN D-3) 5,000 unit tab Take 5,000 Units by mouth once daily. - ZINC GLUCONATE ORAL Take by mouth. - guaifenesin (MUCUS RELIEF ORAL) Take by mouth. - promethazine HCl (PHENERGAN ORAL) Take by mouth. - mineral oil/hydrophil petrolatum (PETROLATUM) oint Please apply to arms 3-4 times daily and as needed to prevent frictional irritation - hydrocortisone 2.5 % cream Apply to affected areas on trunk and extremities two times daily Mon to Fri - senna (SENOKOT) 8.6 mg tab Take 8.6 mg by mouth twice daily. - ondansetron (ZOFRAN) 4 mg tablet Take 4 mg by mouth as directed. - Levothyroxine 75 mcg cap Take by mouth once daily. - montelukast (SINGULAIR) 10 mg tablet Take 10 mg by mouth daily at bedtime. - lactulose(ENULOSE 10 GRAM/15 ML ORAL SOLN) takes one tablespoon three times daily - bisacodyl(DULCOLAX 10 MG RECTAL SUPPOSITORY) takes as directed as needed rectally - ACETAMINOPHEN 325 MG TAB takes one to two tablets every 4-6 hours as needed - loratadine(CLARITIN 10 MG TAB) takes one tablet daily as needed as directed - silver sulfadiazine(SSD AF 1 % TOPICAL CREAM) applies to affected area daily as directed - CLINDAMYCIN 1 % TOPICAL SOLN Apply to affected area(s) twice daily. - GUANFACINE 1 MG TAB Take one(1) tablet daily. - divalproex sodium(DEPAKOTE 500 MG TAB) takes three tablets at bedtime daily - mometasone furoate(NASONEX 50 MCG/ACTUATION SPRAY) [place] twice in each nostril once daily. - multivitamins(DAILY MULTIVITAMIN TAB) Take one(1) tablet daily. - LITHIUM CARBONATE 150 MG CAP Take one(1) tablet two(2) times daily. 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] 06/18/2008 Encounter Status:Closed by PARISH HASKINS on 11/19/23 Normal [facility] Carbamazepineon 05-02-2023 Carbamaz Lvl 5.6 microgram/mL Normal 4.0-12.0 [facility] Comment on above: Performed By: #### 2 [id number], [id number] #### [facility] [address] [place] [address] Physician Orderon 05-02-2023 Physician Order [id number] #1.00TIFF Normal [facility] Valproic Acidon 05-02-2023 Valpro Acid Lvl 68 microgram/mL Normal 50-99 [facility] Comment on above: Performed By: #### 2 [id number], [id number] #### [facility] [address] [place] [address] CMPon 02-08-2023 Albumin [Mass/Vol] 4.2 g/dL Normal 3.3-5.0 [facility] Comment on above: Performed By: #### 1 4457098, 0527050, 0188452, 7870578, 7007398 #### [facility] [address] [place] [address] Albumin/Globulin [Mass ratio] 1.6 {ratio} Normal 1.1-2.2 [facility] Comment on above: Performed By: #### 1 1471566, 9444538, 5309189, 3970602, 9870798 #### [facility] [address] [place] [address] Alk Phos 51 Int._Unit/L Normal 21-98 [facility] Comment on above: Performed By: #### 1 1587776, 9996731, 1910345, 7909061, 1239575 #### [facility] [address] [place] [address] ALT 23 Int._Unit/L Normal 6-46 [facility] Comment on above: Performed By: #### 1 0734160, 7865803, 7911244, 9545448, 7498685 #### [facility] [address] [place] [address] Anion gap [Moles/Vol] 10 mmol/L Normal 6-16 [facility] Comment on above: Performed By: #### 1 1842649, 6453137, 7831658, 0123165, 2257675 #### [facility] [address] [place] [address] AST 19 Int._Unit/L Normal 5-43 [facility] Comment on above: Performed By: #### 1 5211239, 3289571, 2790407, 7519113, 9141590 #### [facility] [address] [place] [address] Bili Total 0.4 mg/dL Normal 0.0-1.1 [facility] Comment on above: Performed By: #### 1 0463362, 6804013, 4393679, 6542020, 3636013 #### [facility] [address] [place] [address] BUN/Creat Ratio 23 No Units High 10-20 [facility] Comment on above: Performed By: #### 1 8737037, 8502579, 3109243, 4222844, 0308064 #### [facility] [address] [place] [address] Calcium [Mass/Vol] 9.1 mg/dL Normal 8.9-11.1 [facility] Comment on above: Performed By: #### 1 6907247, 3149078, 9407138, 5836422, 6621650 #### [facility] [address] [place] [address] Chloride [Moles/Vol] 104 mmol/L Normal 101-111 [facility] Comment on above: Performed By: #### 1 1730825, 2597882, 7957403, 3893651, 3559308 #### [facility] [address] [place] [address] CO2 [Moles/Vol] 34 mmol/L High 21-31 [place] Comment on above: Performed By: #### 1 8573614, 0584104, 8257932, 4698414, 8728955 #### [facility] [address] [place] [address] Creatinine [Mass/Vol] 0.6 mg/dL Normal 0.5-1.3 [facility] Comment on above: Performed By: #### 1 8770071, 9239068, 2443672, 0395807, 9020710 #### [facility] [address] [place] [address] Globulin (S) [Mass/Vol] 2.7 g/dL Normal 1.4-4.0 [facility] Comment on above: Performed By: #### 1 3012480, 2069895, 6853322, 7419502, 3408570 #### [facility] [address] [place] [address] Glucose [Mass/Vol] 76 mg/dL Normal 55-199 [facility] Comment on above: Performed By: #### 1 6623930, 7220209, 5433188, 0493647, 4522800 #### [facility] [address] [place] [address] Potassium [Moles/Vol] 4.5 mmol/L Normal 3.5-5.3 [facility] Comment on above: Performed By: #### 1 5889230, 3366087, 3134585, 5451913, 2020659 #### [facility] [address] [place] [address] Protein [Mass/Vol] 6.9 g/dL Normal 6.0-7.8 [facility] Comment on above: Performed By: #### 1 4516600, 1413488, 8570559, 6617154, 1078449 #### [facility] [address] [place] [address] Sodium [Moles/Vol] 143 mmol/L Normal 135-145 [facility] Comment on above: Performed By: #### 1 9821231, 0389615, 3586409, 1280340, 5682211 #### [facility] [address] [place] [address] Urea nitrogen [Mass/Vol] 14 mg/dL Normal 5-21 [facility] Comment on above: Performed By: #### 1 9638287, 1126362, 3203880, 8650416, 3299426 #### [facility] [address] [place] [address] Free T4on 02-08-2023 Free T4 [Mass/Vol] 0.73 ng/dL Normal 0.58-1.64 [facility] Comment on above: Performed By: #### 1 9350823, 2206148, 3225318, 4457829, 6636707 #### [facility] [address] [place] [address] TSHon 02-08-2023 TSH Qn 2.82 m[IU]/L Normal 0.34-5.60 [facility] Comment on above: Performed By: #### 1 4658881, 0658356, 9470642, 5189709, 6015385 #### [facility] [address] [place] [address] eGFRon 02-08-2023 GFR/1.73 sq M.predicted among non-blacks MDRD (S/P/Bld) [Vol rate/Area] mL/min/{1.73_m2} Normal >=59 [facility] Comment on above: Order Comment: Order added by Discern Expert. Performed By: #### 1 7093102, 2140658, 2582396, 7590435, 8980141 #### [facility] [address] [place] [address] CBC w/Indiceson 02-07-2023 Erythrocyte distribution width (RBC) [Ratio] 12.9 % Normal 10.9-14.2 [facility] Comment on above: Performed By: #### 1 6160207, 7579888, 3003718, 1942341, 1457550 #### [facility] [address] [place] [address] Hematocrit (Bld) [Volume fraction] 43.5 % Normal 37.7-49.0 [facility] Comment on above: Performed By: #### 1 6658198, 0261840, 3663069, 6335835, 5854523 #### [facility] [address] [place] [address] Hemoglobin (Bld) [Mass/Vol] 14.4 g/dL Normal 13.5-17.5 [facility] Comment on above: Performed By: #### 1 1033203, 4494111, 3060873, 0369314, 0553502 #### [facility] [address] [place] [address] MCH (RBC) [Entitic mass] 30.7 pg Normal 27.0-34.0 [facility] Comment on above: Performed By: #### 1 0544476, 9583797, 2853426, 9781279, 7244363 #### [facility] [address] [place] [address] MCHC (RBC) [Mass/Vol] 33.0 g/dL Normal 31.4-36.0 [facility] Comment on above: Performed By: #### 1 6250470, 7630955, 5417073, 7714219, 8999762 #### [facility] [address] [place] [address] MCV (RBC) [Entitic vol] 92.9 fL Normal 80.0-100.0 [facility] Comment on above: Performed By: #### 1 9992100, 2078410, 7195572, 3842975, 5504704 #### [facility] [address] [place] [address] Platelet mean volume (Bld) [Entitic vol] 8.7 fL Normal 6.4-10.8 [facility] Comment on above: Performed By: #### 1 9472569, 2511123, 2002505, 5813551, 7033803 #### [facility] [address] [place] [address] Platelets (Bld) [#/Vol] 205.0 E9/L Normal 150.0-500.0 [facility] Comment on above: Performed By: #### 1 0588939, 6939506, 3029367, 1087926, 4158772 #### [facility] [address] [place] [address] RBC (Bld) [#/Vol] 4.7 E12/L Normal 4.3-5.9 [facility] Comment on above: Performed By: #### 1 1327696, 4309348, 0966777, 0245856, 6226058 #### [facility] [address] [place] [address] WBC corrected for nucl RBC Auto (Bld) [#/Vol] 6.6 E9/L Normal 4.0-11.0 [facility] Comment on above: Performed By: #### 1 8064650, 8710369, 7504205, 2575966, 5183966 #### [facility] [address] [place] [address] Physician Orderon 02-07-2023 Physician Order [id number] 7#1.00TIFF Normal [facility] Carbamazepineon 12-21-2022 carBAMazepine [Mass/Vol] 4.4 microgram/mL Normal 4.0-12.0 [facility] Comment on above: Performed By: #### 2 641913, 6467131 ####[facility] [address] [place] [address] Physician Orderon 12-20-2022 Physician Order [id number] 8#1.00TIFF Normal [facility] Valproic Acidon 12-20-2022 Valproate [Moles/Vol] 55 microgram/mL Normal 50-99 [facility] Comment on above: Performed By: #### 2 062551, 2114003 ####[facility] [address] [place] [address] Progress Noteson 12-13-2022 Char Filter Tank Tender Head Authentication Interface Message Text ----- Tuesday, December 13, 2022 at 11:14:06 AM ----- ----- Provider: Jason Wagner Hygienist -- Clinic: [facility] ----- Pt is special needs and was accompanied by his father Reynaldo and manager career from the [facility]. [facility], Pt is ready for tx., I was opening the X-Rays on the computer I felt him touching my hair, I turned to look at patient and his hand came at my face. Like a pie in your face is what the manager career said. pt has been in OR in the past for treatment. The last X-Rays were taken in 05/24/2020. Pt had a prophy in 06/22/2021 but was not very cooperative. the decision was made to put him back on the OR list for an Exam, X-Rays and Prophy and if any work that needs to be done. Legal Guardian: Reynaldo Ramos [phone] [facility] Nurse : [phone] Dr. Olson and I explained to Reynaldo and manager career that it would be in the best interest for Milan to go to the OR and have all the treatment done at once. Discussed the medical necessity of the problem with the pt. Instructions given to manager career about OR. Examination was done by Dr. Wesley FORREST. OR Lakia Lama [facility] ----- Signed on Tuesday, December 13, 2022 at 4:48:50 PM ----- ----- Provider: Leeann Castro DDS -- Clinic: [facility] ----- Normal [facility] Physician Orderon 10-10-2022 Physician Order [id number]#1.00CD:127 Normal [facility] Valproic Acidon 10-10-2022 Valproate [Moles/Vol] 38 microgram/mL Low 50-99 [facility] Comment on above: Performed By: #### 2 768999 #### [facility] [address] [place] [address] CARBAMAZEPINEon 05-04-2022 Carbamezapine 4.3 ug/mL Normal 4.0-12.[address] [facility] Comment on above: Result Comment: In c onjunction with other antiepileptic drugs Therapeutic 4.0 - 8.0 Toxicity 9.0 - 12.0 . Carbamazepine alone Therapeutic 8.0 - 12.0 . Detection Limit = 2.0 <2.0 indicates None Detected Performed By: #### C ARBLC #### [facility] [address] [place] [address] Dr. Pedro Fry DEPAKENE/ VALPROIC ACIDon DEPAKENE 60.2 ug/ml Normal 50.0-100.0 [facility] Comment on above: Performed By: #### V ALP #### [facility] [address] [place] [address] Dr. Pedro Fry CARBAMAZEPINEon 04-06-2022 Carbamezapine <0.5 Critically low 4.0-12.0 [facility] Comment on above: Result Comment: In c onjunction with other antiepileptic drugs Therapeutic 4.0 - 8.0 Toxicity 9.0 - 12.0 . Carbamazepine alone Therapeutic 8.0 - 12.0 . Detection Limit = 2.0 <2.0 indicated None Detected Verified by repeat analysis Performed By: #### C ARBLC #### [facility] [address] [place] [address] Dr. Pedro Fry DEPAKENE/ VALPROIC ACIDon DEPAKENE 82.7 ug/ml Normal 50.0-100.0 [facility] Comment on above: Performed By: #### V ALP #### [facility] [address] [place] [address] Dr. Pedro Fry DEPAKENE/ VALPROIC ACIDon DEPAKENE 67.4 ug/ml Normal 50.0-100.0 [facility] Comment on above: Performed By: #### V ALP #### [facility] [address] [place] [address] Dr. Pedro Fry POTASSIUMon 01-16-2022 Potassium [Moles/Vol] 4.0 mmol/L Normal 3.5-5.1 [facility] Comment on above: Performed By: #### K #### [facility] [address] [place] [address] Dr. Pedro Fry XR CHEST 1 Von 01-16-2022 XR CHEST 1 V EXAM: XR CHEST 1 V at 1848 hours HISTORY: NAUSEA WITH VOMITING, UNSPECIFIED COMPARISON: 2020 TECHNIQUE: AP upright portable chest x-ray FINDINGS: The heart is not enlarged and the vasculature is not distended. No acute infiltrate, effusion or pneumothorax is identified. The osseous structures are grossly intact. IMPRESSION: No acute infiltrate or evidence of cardiac decompensation. The overall appearance of the chest is unchanged. Electronically authenticated by: ABELARDO BROWN Date: 2022-01-16 19:20 Normal [facility] Encounters Encounter Date Encounter Type Care Provider Facility Start: 08-20-2024 End: 08-20-2024 Patient encounter procedure Peter Mena DDS Work Phone: [facility] Comment on above: Seizure disorder (Pr imary Dx); Encounter for dental examination Start: 08-20-2024 End: 08-20-2024 Patient encounter status Peter Mena DDS Work Phone: [facility] Work Phone: Start: 08-04-2024 End: 08-04-2024 Patient encounter procedure Carie Briseno MD Work Phone: Dermatology Comment on above: Mycosis fungoides, u nspecified body region (HCC) (Primary Dx); Pruritus; Irritant contact dermatitis, unspecified trigger Start: 08-04-2024 End: 08-04-2024 ambulatory [facility] Facility:[facility] Start: 06-10-2024 End: 06-10-2024 Telephone encounter Carie Briseno MD Work Phone: Dermatology Start: 05-12-2024 End: 05-12-2024 Patient encounter procedure Carie Briseno MD Work Phone: Dermatology Comment on above: Mycosis fungoides, u nspecified body region (HCC) (Primary Dx); Pruritus; Irritant contact dermatitis, unspecified trigger Start: 05-12-2024 End: 05-12-2024 ambulatory [facility] Facility:[facility] Start: 03-22-2024 End: 03-22-2024 Letter encounter Sandra Cordero DDS Work Phone: [facility] Start: 11-19-2023 End: 11-19-2023 Telephone encounter Carie Briseno MD Work Phone: Dermatology Start: 11-19-2023 End: 11-19-2023 ambulatory CARIE BRISENO Facility:[facility] Start: 11-19-2023 End: 11-19-2023 Office outpatient visit 15 minutes Carie Briseno MD Work Phone: Dermatology Comment on above: Mycosis fungoides, u nspecified body region (HCC) (Primary Dx); Pruritus Start: 06-18-2023 End: 06-19-2023 ambulatory KENYA D DOLCE Not Available Start: 06-04-2023 End: 06-04-2023 ambulatory KENYA D DOLCE Not Available Start: 05-28-2023 End: 05-29-2023 ambulatory KENYA D DOLCE Not Available Start: 05-02-2023 End: 05-03-2023 ambulatory CIERRA SINGH [place] Start: 02-07-2023 End: 02-08-2023 ambulatory CIERRA SINGH [place] Start: 12-20-2022 End: 12-21-2022 ambulatory CIERRA SINGH [place] Start: 12-13-2022 End: 12-18-2022 ambulatory UNKNOWN PROVIDER Facility:[facility] Start: 12-13-2022 End: 12-18-2022 Patient encounter procedure Lakia Wagner [facility] Work Phone: [facility] Start: 10-10-2022 End: 10-11-2022 ambulatory UNKNOWN PROVIDER Facility:[facility] Start: 06-12-2022 End: 06-12-2022 Patient encounter procedure Carie Briseno MD Work Phone: Dermatology Comment on above: Mycosis fungoides, u nspecified body region (HCC) (Primary Dx); Pruritus Start: 05-03-2022 End: 05-04-[address] CIERRA SINGH Facility: Start: 04-05-2022 End: 04-06-[address] CIERRA SINGH Facility: Start: 03-19-2022 Letter encounter Blairerichie Macksofiya DDS Work Phone: [facility] Start: 03-08-2022 End: 03-09-[address] ERIKA RESENDEZ . Facility: Start: 01-17-2022 End: 01-18-[address] CIERRA SINGH Facility: Start: 01-16-2022 End: 01-17-[address] ERIKA RESENDEZ . Facility: Start: 06-22-2021 End: 06-27-2021 Patient encounter procedure Gina Brarman [facility] Work Phone: [facility] Procedures Date Procedure Procedure Detail Performing Clinician Start: 08-20-2024 LIMITED ORAL EVALUAT ION - PROBLEM FOCUSED Nolan Jones DMD Work Phone: Start: 08-20-2024 PANORAMIC RADIOGRAPH IC IMAGE Nolan Jones DMD Work Phone: Plan of Treatment Date Care Activity Detail Author Start: 12-10-2029 Urine microalbumin profile [facility] Start: 10-06-2024 Influenza vaccination [facility] Start: 08-04-2024 End: 08-04-2024 Patient encounter procedure 08/04/2024 10:40 AM EDT Office Visit Dermatology [address] [address] Carie Briseno MD [address] [place] [address] Follow Up Dermatology Comment on above: Follow Up Start: 12-24-2023 Tetanus vaccination Met [facility] Start: 10-07-2023 Influenza vaccination Influenza Vacc ine (#1) [facility] Start: 05-07-2023 Medicare Annual Wellness Visit Medicare Annual Wellness Visit [facility] Start: 10-06-2022 Influenza vaccination [facility] Start: 09-14-2022 [facility] Start: 02-05-2022 DEPRESSION ASSESSMENT DEPRESSION ASS ESSMENT [facility] Start: 11-05-2021 Influenza vaccination Influenza Vacc ine (#1) [facility] Start: 09-14-2014 HPV Vaccine (optiona l start 27-45 years) HPV Vaccine (optional start 27-45 years) [facility] Start: 09-14-2006 Hepatitis A (HAV) Vaccine (optional start 19+ years) Hepatitis A (HAV) Vaccine (optional start 19+ years) [facility] Start: 09-14-2006 Pneumococcal vaccination [facility] Start: 09-14-2006 PNEUMOCOCCAL VACCINE SERIES (1 of 2 - PCV) PNEUMOCOCCAL VACCINE SERIES (1 of 2 - PCV) [facility] Start: 09-14-2006 Shingles (RZV) Vacci ne (1 of 2) Shingles (RZV) Vaccine (1 of 2) [facility] Start: 09-14-2006 SHINGRIX VACCINE (1 of 2) SHINGRIX VACCINE (1 of 2) [facility] Start: 09-14-2006 Urine microalbumin profile DTAP,TDAP,TD (1 - Tdap) [facility] Start: 09-14-2006 Zoster vaccine hzv l doroteo for subcutaneous use ZOSTER (SHINGLES) VACCINE (1 of 2) [facility] Start: 09-14-2005 Anxiety Screening Anxiety Screening [facility] Start: 09-14-2005 Depression Screening Depression Scre ening [facility] Start: 09-14-2005 [facility] Start: 09-14-2005 HEPATITIS C SCREENING HEPATITIS C SC REENING [facility] Start: 09-14-2005 HIV SCREENING HIV SCREENING [facility] Start: 09-14-2005 HIV screening HIV Screening [facility] Start: 09-14-2002 HIV screening HIV SCREENING DISCUSSION [facility] Start: 09-14-1993 PNEUMOCOCCAL (1 - PCV) PNEUMOCOCCAL (1 - PCV) [facility] Start: 09-14-1993 Pneumococcal vaccination [facility] Start: 09-14-1992 COVID-19 Vaccine (#1) COVID-19 Vacci ne (#1) [facility] Start: 03-17-1988 COVID-19 Vaccine (#1) COVID-19 Vacci ne (#1) [facility] Start: 1987 Dental Oral Exam Dental Oral Exam [facility] Start: 1987 Dental Prophylaxis Dental Prophylaxi s [facility] Start: 1987 HEPATITIS B (1 of 3 - 3-dose series) HEPATITIS B (1 of 3 - 3-dose series) [facility] Start: 1987 Hepatitis C screening HEPATITI S C VIRUS SCREENING [facility] Start: 1987 Thyroid stimulating hormone measurement TSH [facility] COMPREHENSIVE ORAL E ETHAN - NEW/EST PATIENT COMPREHENSIVE ORAL EVAL - NEW/EST PATIENT Dental Routine 1 Occurrences starting 08/20/2024 [facility] Work Phone: Comment on above: 1 Occurrences starti ng 08/20/2024 INTRAORAL - COMPLETE SERIES OF RADIOGRAPHIC IMAGES INTRAORAL - COMPLETE SERIES OF RADIOGRAPHIC IMAGES Dental Routine 1 Occurrences starting 08/20/2024 [facility] Work Phone: Comment on above: 1 Occurrences starti ng 08/20/2024 PROPHYLAXIS - ADULT PROPHYLAXIS - ADULT Dental Routine 1 Occurrences starting 08/20/2024 [facility] Work Phone: Comment on above: 1 Occurrences starti ng 08/20/2024 Immunizations Immunization Date Immunization Notes Care Provider Varun chakraborty 12-01-2020 influenza, injectabl e, quadrivalent, preservative free Gina Carter [facility] Work Phone: [facility] 12-01-2020 influenza virus vacc ine, unspecified formulation Sandra Cordero DDS Work Phone: [facility] 12-11-2019 diphtheria, tetanus toxoids and pertussis vaccine [facility] Work Phone: [facility] 11-12-2019 influenza, injectabl e, quadrivalent, preservative free [facility] Work Phone: [facility] 11-29-2018 influenza, injectabl e, quadrivalent, preservative free [facility] Work Phone: [facility] 11-14-2017 influenza, injectabl e, quadrivalent, preservative free [facility] Work Phone: [facility] 11-29-2016 influenza, injectabl e, quadrivalent, contains preservative [facility] Work Phone: [facility] 11-10-2015 influenza, seasonal, injectable G[facility] Work Phone: [facility] 11-26-2014 influenza, injectabl e, quadrivalent, preservative free [facility] Work Phone: [facility] 12-23-2013 tetanus toxoid, redu paulo diphtheria toxoid, and acellular pertussis vaccine, adsorbed [facility] Work Phone: [facility] 12-11-2013 influenza, injectabl e, quadrivalent, preservative free [facility] Work Phone: [facility] 12-03-2012 influenza, seasonal, injectable Gina Clendenin RD Work Phone: [facility] 11-29-2011 influenza, seasonal, injectable Gina Clendenin RD Work Phone: [facility] 10-19-2010 influenza, seasonal, injectable [facility] Work Phone: [facility] 11-28-2009 influenza virus vacc ine, whole virus Gina Clendenin [facility] Work Phone: [facility] 12-23-2008 novel influenza-H1N1 -09, preservative-free, injectable Gina [facility] Work Phone: [facility] 11-28-2007 influenza virus vacc ine, whole virus Gina Clendenin [facility] Work Phone: [facility] 06-21-2006 meningococcal polysa ccharide (groups A, C, Y and W-135) diphtheria toxoid conjugate vaccine (MCV4P) Gina [facility] Work Phone: [facility] 12-05-2005 influenza, seasonal, injectable Gina [facility] Work Phone: [facility] 11-19-2003 TD(adult) unspecifie d formulation [facility] Work Phone: [facility] 10-02-2001 measles, mumps and r ubella virus vaccine Gina Emma [facility] Work Phone: [facility] 06-21-2000 measles, mumps and r ubella virus vaccine Gina Clendenin [facility] Work Phone: [facility] 09-27-1999 measles, mumps and r ubella virus vaccine Gina Clendenin [facility] Work Phone: [facility] 06-02-1997 hepatitis B vaccine, pediatric or pediatric/adolescent dosage Gina Clendenin [facility] Work Phone: [facility] 01-04-1997 hepatitis B vaccine, pediatric or pediatric/adolescent dosage Gina Emma [facility] Work Phone: [facility] 12-02-1996 hepatitis B vaccine, pediatric or pediatric/adolescent dosage Gina Emma [facility] Work Phone: [facility] 11-15-1993 diphtheria, tetanus toxoids and acellular pertussis vaccine, unspecified formulation Gina [facility] Work Phone: [facility] 11-15-1993 poliovirus vaccine, inactivated [facility] Work Phone: [facility] 06-15-1992 diphtheria, tetanus toxoids and acellular pertussis vaccine, unspecified formulation Gina Carter [facility] Work Phone: [facility] 06-15-1992 trivalent poliovirus vaccine, live, oral Gina Carter [facility] Work Phone: [facility] 10-07-1991 diphtheria, tetanus toxoids and pertussis vaccine Ginahollis Carter [facility] Work Phone: [facility] 10-07-1991 poliovirus vaccine, inactivated Gina Carter [facility] Work Phone: [facility] 12-25-1990 diphtheria, tetanus toxoids and pertussis vaccine Ginahollis Carter [facility] Work Phone: [facility] 12-25-1990 measles, mumps and r ubella virus vaccine Ginahollis Carter [facility] Work Phone: [facility] 12-25-1990 poliovirus vaccine, inactivated Gina Carter [facility] Work Phone: [facility] 07-24-1989 trivalent poliovirus vaccine, live, oral Gina Carter [facility] Work Phone: [facility] 02-27-1989 measles, mumps and r ubella virus vaccine Gina Carter [facility] Work Phone: [facility] 04-06-1988 diphtheria, tetanus toxoids and pertussis vaccine Ginahollis Carter [facility] Work Phone: [facility] 01-20-1988 diphtheria, tetanus toxoids and pertussis vaccine Ginahollis Carter [facility] Work Phone: [facility] 01-20-1988 trivalent poliovirus vaccine, live, oral Gina Carter [facility] Work Phone: [facility] 01-11-1988 diphtheria, tetanus toxoids and pertussis vaccine Ginahollis Carter [facility] Work Phone: [facility] 01-11-1988 poliovirus vaccine, inactivated Gina Carter [facility] Work Phone: [facility] 1987 diphtheria, tetanus toxoids and pertussis vaccine Gina Carter [facility] Work Phone: [facility] 1987 trivalent poliovirus vaccine, live, oral Gina Carter [facility] Work Phone: [facility] Payers Date Payer Category Payer Medicare MEDICARE [id number] 2023 Medicare [id number] 2006 Dental --Stand Alone DENTAL-MEDI CAID [id number] 2006 Medicaid [id number] 1987 Unknown [id number] 93 1987 Unknown [id number] 32 1987 Unknown [id number] 32 1987 Unknown [id number] 27 1987 Unknown [id number] 27 1987 Unknown [id number] [id number] 27 1987 Unknown [id number] [id number] 27 1987 Unknown [id number] [id number] 259 1987 Unknown [id number] [id number] 259 1987 Unknown [id number] [id number] 259 1987 Unknown [id number] [id number] 259 1987 Unknown [id number] [id number] 259 1959 Medicaid [id number] Unknown [id number] 93 Unknown [id number] 93 Unknown [id number] 93 Unknown [id number] 93 Social History Date Type Detail Facility Start: 01-05-2016 End: 12-26-2019 Tobacco smoking status MIIS Never smoked tobacco [facility] Start: 12-26-2019 Tobacco use and exposure Smokeless tobacco non-user [facility] Start: 05-25-2020 Alcohol intake Lifetime non-d ramón (finding) [facility] Start: 05-19-2020 History SDOH Alcohol Frequency 1 [facility] Start: 1985 Sex Assigned At Not on file M [facility] Start: 01-05-2016 Alcohol intake Not Asked Jacque wagner [facility] Start: 02-02-2017 End: 11-19-2023 Gender identity Not on file [facility] Start: 02-02-2017 End: 11-19-2023 History of Social function [facility] National Score (1-100), lower number is lower risk 64 [facility] Start: 05-25-2020 Details of drug misu se behavior Has never misused drugs (situation) [facility] Start: 12-10-2011 End: 07-15-2024 Sex Male (finding) [facility] Tobacco smoking stat [facility] Tobacco smoking consumption unknown [employer] Work Phone: Functional Status Date Assessment Result Facility 07-27-2014 Are you deaf, or do you have serious difficulty hearing No 07/27/2014 8:03 AM EDT Karyn Weems LPN No [facility] 07-27-2014 Are you blind, or do you have serious difficulty seeing, even when wearing glasses No 07/27/2014 8:03 AM EDT Karyn Weems LPN No [facility] 07-27-2014 Do you have serious difficulty walking or climbing stairs Yes 07/27/2014 8:03 AM EDT Karyn Weems LPN Yes [facility] 07-27-2014 Do you have difficul ty dressing or bathing Yes 07/27/2014 8:03 AM EDT Karyn Weems LPN Yes [facility] 07-27-2014 Because of a physica l, mental, or emotional condition, do you have difficulty doing errands alone such as visiting a physician's office or shopping Yes 07/27/2014 8:03 AM EDT Karyn Weems LPN Yes [facility] Mental Status Date Assessment Result Facility 07-27-2014 Because of a physica l, mental, or emotional condition, do you have serious difficulty concentrating, remembering, or making decisions No 07/27/2014 8:03 AM EDT Karyn Weems LPN No [facility] Clinical Notes 06-22-2021 to 08-20-2024 Peter Mena DDS - 08/20/2024 10:00 AM EDTDental Procedure Details - Peter Mena DDS - 08/20/2024 10:00 AM EDTPatient Carie Guido MD - 08/04/2024 10:40 AM EDT Note Date & Type Note Facility 08-20-2024 History of Present illness Narrative Dental Exam 08/20/2024 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 Chief Complaint Patient presents with New Patient Pt presents non-verbal to clinic for comp exam, accompanied by parents and caregivers. MedHx uploaded to pt chart History of Present Illness No past medical history on file. No current outpatient medications on file. There were no vitals filed for this visit. Not on File Tobacco Use: Not on file Dental Case Management: Treatment considerations resulting in substantial functional limitations requiring modifications to deliver treatment to provide comprehensive oral health care based on findings including: Developmental: IV sedation or general anesthesia Radiographic Interpretation: - Distorted MELENDEZ obtained - Some teeth visible, with possible periapical pathosis Images and Retakes: Bitewings: 0 Vertical Bitewings: 0 PA: 0 Panorex: 1 Retakes: 0 Head & Neck Exam Soft Tissue Exam No findings documented this visit Periodontal: Diagnosis: No diagnosis found. 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 No [id number] - PANORAMIC RADIOGRAPHIC IMAGE Next Visit: - Comp exam and Tx under [place] Encounter Providers N/A: Peter Mena DDS documented in this encounter [facility] Work Phone: 08-20-2024 Miscellaneous Notes Was local anesthetic administered? 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 Apply to pink patches on the hips, thighs, and buttocks twice daily Sunday-Sunday as needed. Avoid face, groin folds, and armpits. Can hold application when no pink rash seen. - Hydrocortisone cream 2.5% twice daily as needed to hips and buttocks. - Continue tanning every other week 10 min. If any burning let us know. Discuss tanning and known increased risk of skin cancer so want to keep this therapy at minimal level. Irritant contact dermatitis, buttock - improved -Continue to use Desitin barrier cream daily as needed to buttocks -To avoid irritant contact dermatitis, recommend frequent toileting schedule every 2-3 hours Follow up in 1 year or sooner if needed documented in this encounter [facility] 08-04-2024 History of Present illness Narrative Established Patient 05/12/2024 Chief Complaint: Mycosis Fungoides History of Present Ilness: Milan F Ramos is a 38 year old male Patient is here for: 1) 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 No Overall Status: stable Significant improvement in itch. Using triamcinolone cream once to twice a week as needed Current treatment: triamcinolone 0.1% cream , tanning bell for 10 minutes every other week (went last week) Past treatments: Hydrocortisone cream 2.5% as needed. Moisturizing lotion daily Patient resides at [facility], here with Mother and Father Pertinent Past Medical History: History of skin cancer or atypical nevi No Per Dr. 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 (patient is non-verbal) Pertinent Family medical history: History of melanoma No Pertinent Family medical history: History of melanoma No Review of Systems: Constitutional: Denies fever, chills, night sweats, unintentional weight loss. Skin per HPI. No other new/concerning skin growth. Physical Exam: General: well appearing, of stated age, in no acute distress Neurology: alert and oriented times three Psychiatry: in a happy mood Skin: Fields skin type: II Skin exam performed of face, scalp, neck, chest, abdomen, back, bilateral upper extremities, bilateral lower extremities Skin exam normal with the exception of: Left > Right hip and groin with faint pink patches, minimal scale, without signs of excoriation Chest with scattered hypopigmented patches Buttocks with faint erythema without signs of excoriation No plaques Assessment and Plan: 1. CTCL, MF type, Stage IA BSA <10% - Significant improvement on triamcinolone 0.1% cream as needed - Continue triamcinolone 0.1% cream twice daily - as needed. Apply to pink patches on the hips, thighs, and buttocks twice daily Sunday-Sunday as needed. Avoid face, groin folds, and armpits. Can hold application when no pink rash seen. - Hydrocortisone cream 2.5% twice daily as needed to hips and buttocks. - Continue tanning every other week 10 min. If any burning let us know. Discuss tanning and known increased risk of skin cancer so want to keep this therapy at minimal level. 2. Irritant contact dermatitis, buttock 3. Incontinence -Improvement in buttock rash with more frequent toileting schedule as area is kept dry -Continue to use Desitin barrier cream daily as needed -To avoid irritant contact dermatitis, recommend frequent toileting schedule every 2-3 hours Return to clinic every year or sooner if something concerning arises. The documentation for this note was completed by Carie Knight RN acting as scribe for Carie Briseno MD. August 04, 2024 10:40 AM. Summer Parker MD I agree with the Chief Complaint, ROS, and Past Histories independently gathered by the clinical mission support specialist and the remaining scribed note accurately describes my personal service to the patient. I saw and evaluated Milan Ramos, as well as developed and discussed the assessment and plan with the Resident. I have reviewed the Resident's note and agree with the history and physical examination as described, as well as the assessment and plan of care. The resident's note was annotated by me as needed to reflect my direct input. Carie Briseno MD documented in this encounter [facility] 08-04-2024 Note HNO ID: [id number] Author: CARIE BRISENO MD Service: ? Author Type: Physician Type: Progress Notes Filed: 08/06/2024 20:52 Note Text: Established Patient LV 05/12/2024 Chief Complaint: Mycosis Fungoides History of Present Ilness: Milan Ramos is a 38 year old male Patient is here for: 1) 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 No Overall Status: stable Significant improvement in itch. Using triamcinolone cream once to twice a week as needed Current treatment: triamcinolone 0.1% cream , tanning bell for 10 minutes every other week (went last week) Past treatments: Hydrocortisone cream 2.5% as needed. Moisturizing lotion daily Patient resides at [facility], here with Mother and Father Pertinent Past Medical History: History of skin cancer or atypical nevi No Per Dr. 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 (patient is non-verbal) Pertinent Family medical history: History of melanoma No Pertinent Family medical history: History of melanoma No Review of Systems: Constitutional: Denies fever, chills, night sweats, unintentional weight loss. Skin per HPI. No other new/concerning skin growth. Physical Exam: General: well appearing, of stated age, in no acute distress Neurology: alert and oriented times three Psychiatry: in a happy mood Skin: Fields skin type: II Skin exam performed of face, scalp, neck, chest, abdomen, back, bilateral upper extremities, bilateral lower extremities Skin exam normal with the exception of: Left > Right hip and groin with faint pink patches, minimal scale, without signs of excoriation Chest with scattered hypopigmented patches Buttocks with faint erythema without signs of excoriation No plaques Assessment and Plan: 1. CTCL, MF type, Stage IA BSA <10% - Significant improvement on triamcinolone 0.1% cream as needed - Continue triamcinolone 0.1% cream twice daily - as needed. Apply to pink patches on the hips, thighs, and buttocks twice daily Sunday-Sunday as needed. Avoid face, groin folds, and armpits. Can hold application when no pink rash seen. - Hydrocortisone cream 2.5% twice daily as needed to hips and buttocks. - Continue tanning every other week 10 min. If any burning let us know. Discuss tanning and known increased risk of skin cancer so want to keep this therapy at minimal level. 2. Irritant contact dermatitis, buttock 3. Incontinence -Improvement in buttock rash with more frequent toileting schedule as area is kept dry -Continue to use Desitin barrier cream daily as needed -To avoid irritant contact dermatitis, recommend frequent toileting schedule every 2-3 hours Return to clinic every year or sooner if something concerning arises. The documentation for this note was completed by Carie Knight RN acting as scribe for Carie Briseno MD. August 04, 2024 10:40 AM. Summer Parker MD I agree with the Chief Complaint, ROS, and Past Histories independently gathered by the clinical mission support specialist and the remaining scribed note accurately describes my personal service to the patient. I saw and evaluated Milan Ramos, as well as developed and discussed the assessment and plan with the Resident. I have reviewed the Resident's note and agree with the history and physical examination as described, as well as the assessment and plan of care. The resident's note was annotated by me as needed to reflect my direct input. Carie Briseno MD [facility] 06-10-2024 Telephone encounter Note Per last note: Triamcinolone 0.1% cream: Apply to pink patches on the hips, thighs, and buttocks twice daily Sunday-Sunday as needed. Avoid face, groin folds, and armpits. Can hold application when no pink rash seen. For Desitin, there was concern for irritation on the buttocks at last appointment from overnight moisture/incontinence. Best to apply desitin to buttocks every night if this is still true. Carie Briseno MD [facility] Work Phone: 06-10-2024 Miscellaneous Notes Per last note: Triamcinolone 0.1% cream: Apply to pink patches on the hips, thighs, and buttocks twice daily Sunday-Sunday as needed. Avoid face, groin folds, and armpits. Can hold application when no pink rash seen. For Desitin, there was concern for irritation on the buttocks at last appointment from overnight moisture/incontinence. Best to apply desitin to buttocks every night if this is still true. Carie Briseno MD Received phone call from Reina from [facility]. Asked if triamcinolone acetonide (KENALOG) 0.1 % cream be used as PRN? Also can nurse's stop giving patient Desitin cream? Best number to call Reina is [phone] documented in this encounter [facility] 06-10-2024 Telephone encounter Note Received phone call from Reina from [facility]. Asked if triamcinolone acetonide (KENALOG) 0.1 % cream be used as PRN? Also can nurse's stop giving patient Desitin cream? Best number to call Reina is [phone] [facility] 05-12-2024 History of Present illness Narrative Est Patient JAMES: 11/19/2023 Chief Complaint: Mycosis Fungoides History of Present Ilness: Milan Ramos is a 38 year old male Presents today with caregiver from home and both parents; history provided by parents as Mr. Ramos nonverbal Patient is here for: 1) MF follow up - reports a lot of itching, especially after bathing, worse on the hips and buttocks - wears incontinence underwear overnight and sometimes itching gets worse - hydrocortisone helps for short periods of time - Short lived improvement with triamcinolone, used for 2 weeks, only improvement first two days Current treatment: - Hydrocortisone cream 2.5% as needed - tanning bell for 10 minutes every other week (local tanning salon as no nbUVB close to home). Patient able to lay down in bed and calm during treatments -Previously: 2 weeks of triamcinolone Patient resides at [facility] Pertinent Past Medical History: History of skin cancer or atypical nevi No Per Dr. 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 (patient is non-verbal) Pertinent Family medical history: History of melanoma No Review of Systems: Constitutional: Denies fever, chills, night sweats, unintentional weight loss. Skin per HPI. No other new/concerning skin growth. 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 Medical complex condition is somewhat flaring today at the hips and is symptomatic with pruritus. CTCL, MF type, Stage IA BSA <10%. Chronic condition with flaring today. Not at treatment goal. Pruritus on b/l hips - To active patches on left hip, begin triamcinolone 0.1% cream twice daily -. R/B/A discussed. Apply to pink patches on the hips, thighs, and buttocks twice daily Sunday-Sunday as needed. Avoid face, groin folds, and armpits. Can hold application when no pink rash seen. - Discussed importance of moisturizing daily with gentle products - Continue tanning every other week 10 min. If any burning let us know. Discuss tanning and known increased risk of skin cancer so want to keep this therapy at minimal level. -Discussed possibility of switching from tanning bed to nbUVB therapy and trying to obtain home unit, will consider in future if increased strength of topical steroid is unsuccessful 3. Irritant contact dermatitis, buttock 4. Incontinence -Recommend daily, liberal use of zinc barrier paste such as Desitin before bedtime Return to clinic 3 months or sooner if something concerning arises. The documentation for this note was completed by Olivia Bishop RN acting as scribe for Carie Briseno MD. May 12, 2024 10:37 AM. Apollo Ramsey MD, MS PGY2 Dermatology Resident All documentation from previous visit of 11/19/2023 was copied and pasted, documentation has been reviewed and edited as necessary for today's visit. I agree with the Chief Complaint, ROS, and Past Histories independently gathered by the clinical mission support specialist and the remaining scribed note accurately describes my personal service to the patient. I saw and evaluated Milan Lachelle Ramos, as well as developed and discussed the assessment and plan with the Resident. I have reviewed the Resident's note and agree with the history and physical examination as described, as well as the assessment and plan of care. The resident's note was annotated by me as needed to reflect my direct input. aCrie Briseno MD documented in this encounter [facility] 05-12-2024 Note HNO ID: [id number] Author: CARIE BRISENO MD Service: ? Author Type: Physician Type: Progress Notes Filed: 05/15/2024 09:26 Note Text: Est Patient JAMES: 11/19/2023 Chief Complaint: Mycosis Fungoides History of Present Ilness: Milan Ramos is a 38 year old male Presents today with caregiver from home and both parents; history provided by parents as Mr. Ramos nonverbal Patient is here for: 1) MF follow up - reports a lot of itching, especially after bathing, worse on the hips and buttocks - wears incontinence underwear overnight and sometimes itching gets worse - hydrocortisone helps for short periods of time - Short lived improvement with triamcinolone, used for 2 weeks, only improvement first two days Current treatment: - Hydrocortisone cream 2.5% as needed - tanning bell for 10 minutes every other week (local tanning salon as no nbUVB close to home). Patient able to lay down in bed and calm during treatments -Previously: 2 weeks of triamcinolone Patient resides at [facility] Pertinent Past Medical History: History of skin cancer or atypical nevi No Per Dr. 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 (patient is non-verbal) Pertinent Family medical history: History of melanoma No Review of Systems: Constitutional: Denies fever, chills, night sweats, unintentional weight loss. Skin per HPI. No other new/concerning skin growth. 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 Medical complex condition is somewhat flaring today at the hips and is symptomatic with pruritus. CTCL, MF type, Stage IA BSA <10%. Chronic condition with flaring today. Not at treatment goal. Pruritus on b/l hips - To active patches on left hip, begin triamcinolone 0.1% cream twice daily -. R/B/A discussed. Apply to pink patches on the hips, thighs, and buttocks twice daily Sunday-Sunday as needed. Avoid face, groin folds, and armpits. Can hold application when no pink rash seen. - Discussed importance of moisturizing daily with gentle products - Continue tanning every other week 10 min. If any burning let us know. Discuss tanning and known increased risk of skin cancer so want to keep this therapy at minimal level. -Discussed possibility of switching from tanning bed to nbUVB therapy and trying to obtain home unit, will consider in future if increased strength of topical steroid is unsuccessful 3. Irritant contact dermatitis, buttock 4. Incontinence -Recommend daily, liberal use of zinc barrier paste such as Desitin before bedtime Return to clinic 3 months or sooner if something concerning arises. The documentation for this note was completed by Olivia Bishop RN acting as scribe for Carie Briseno MD. May 12, 2024 10:37 AM. Apollo Ramsey MD, MS PGY2 Dermatology Resident All documentation from previous visit of 11/19/2023 was copied and pasted, documentation has been reviewed and edited as necessary for today's visit. I agree with the Chief Complaint, ROS, and Past Histories independently gathered by the clinical mission support specialist and the remaining scribed note accurately describes my personal service to the patient. I saw and evaluated Milan Ramos, as well as developed and discussed the assessment and plan with the Resident. I have reviewed the Resident's note and agree with the history and physical examination as described, as well as the assessment and plan of care. The resident's note was annotated by me as needed to reflect my direct input. Carie Briseno MD [facility] 11-19-2023 Telephone encounter Note Nurse with [facility] called to clarify Hydrocortisone cream instructions - daily or as needed. Stated both medication and visit notes state as needed in the instructions. [facility] 11-19-2023 Miscellaneous Notes Nurse with [facility] called to clarify Hydrocortisone cream instructions - daily or as needed. Stated both medication and visit notes state as needed in the instructions. documented in this encounter [facility] 11-19-2023 Instructions Debbi Dunham MD - 11/19/2023 12:04 PM EDT Mycosis Fungoides - Continue tanning every other week 10 min. If any burning let us know. - For two weeks, use triamcinolone cream twice daily to affected areas, then return to hydrocortisone - Continue hydrocortisone 2.5% cream up to twice daily as needed to any active patches. Refill provided today. - Discussed importance of moisturizing daily with gentle products documented in this encounter [facility] 11-19-2023 History of Present illness Narrative Est Patient JAMES: 01/25/21 Chief Complaint: Mycosis Fungoides History of Present Ilness: Milan Ramos is a 38 year old male Patient is here for: 1) MF follow up New lesions: caregiver says he has been itching his hips a lot Says rash is still present on back Current treatment: Hydrocortisone cream 1% vaseline to arms to avoid friction per paperwork - tanning bell for 10 minutes once-twice month Patient resides at [facility] Pertinent Past Medical History: History of skin cancer or atypical nevi No Per Dr. 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 (patient is non-verbal) Pertinent Family medical history: History of melanoma No Review of Systems: Constitutional: Denies fever, chills, night sweats, unintentional weight loss. Skin per HPI. No other new/concerning skin growth. 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 CTCL, MF type, Stage IA - stable since previous visit, BSA <10% Pruritus, mild on b/l hips - Continue tanning every other week 10 min. If any burning let us know. Discuss tanning and known increased risk of skin cancer so want to keep this therapy at minimal level. - For two weeks, use triamcinolone cream twice daily to affected areas, then return to hydrocortisone - Continue hydrocortisone 2.5% cream up to twice daily as needed to any active patches. Refill provided today. - Discussed importance of moisturizing daily with gentle products Return to clinic 6 months or sooner if something concerning arises. The documentation for this note was completed by Myrna Navarro RN acting as scribe for Carie Briseno MD. November 19, 2023 7:37 AM. Debbi Dunham MD Dermatology, PGY-3 I agree with the Chief Complaint, ROS, and Past Histories independently gathered by the clinical mission support specialist and the remaining scribed note accurately describes my personal service to the patient. I saw and evaluated Milan Lachelle Ramos, as well as developed and discussed the assessment and plan with the Resident. I have reviewed the Resident's note and agree with the history and physical examination as described, as well as the assessment and plan of care. The resident's note was annotated by me as needed to reflect my direct input. Carie Briseno MD documented in this encounter [facility] 11-19-2023 Note HNO ID: [id number] Author: CARIE BRISENO MD Service: ? Author Type: Physician Type: Progress Notes Filed: 11/24/2023 11:42 Note Text: Est Patient JAMES: 01/25/21 Chief Complaint: Mycosis Fungoides History of Present Ilness: Milan Ramos is a 38 year old male Patient is here for: 1) MF follow up New lesions: caregiver says he has been itching his hips a lot Says rash is still present on back Current treatment: Hydrocortisone cream 1% vaseline to arms to avoid friction per paperwork - tanning bell for 10 minutes once-twice month Patient resides at [facility] Pertinent Past Medical History: History of skin cancer or atypical nevi No Per Dr. 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 (patient is non-verbal) Pertinent Family medical history: History of melanoma No Review of Systems: Constitutional: Denies fever, chills, night sweats, unintentional weight loss. Skin per HPI. No other new/concerning skin growth. 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 CTCL, MF type, Stage IA - stable since previous visit, BSA <10% Pruritus, mild on b/l hips - Continue tanning every other week 10 min. If any burning let us know. Discuss tanning and known increased risk of skin cancer so want to keep this therapy at minimal level. - For two weeks, use triamcinolone cream twice daily to affected areas, then return to hydrocortisone - Continue hydrocortisone 2.5% cream up to twice daily as needed to any active patches. Refill provided today. - Discussed importance of moisturizing daily with gentle products Return to clinic 6 months or sooner if something concerning arises. The documentation for this note was completed by Myrna Navarro RN acting as scribe for Carie Briseno MD. November 19, 2023 7:37 AM. Debbi Dunham MD Dermatology, PGY-3 I agree with the Chief Complaint, ROS, and Past Histories independently gathered by the clinical mission support specialist and the remaining scribed note accurately describes my personal service to the patient. I saw and evaluated Milan Ramos, as well as developed and discussed the assessment and plan with the Resident. I have reviewed the Resident's note and agree with the history and physical examination as described, as well as the assessment and plan of care. The resident's note was annotated by me as needed to reflect my direct input. Carie Briseno MD [facility] 12-13-2022 History of Present illness Narrative ----- Sunday, December 13, 2022 at 11:14:06 AM ----- ----- Provider: [id number] Wagner Hygienist -- Clinic: [place] ----- Pt is special needs and was accompanied by his father Reynaldo and manager career from the [facility]. [facility], Pt is ready for tx., I was opening the X-Rays on the computer I felt him touching my hair, I turned to look at patient and his hand came at my face. Like a pie in your face is what the manager career said. pt has been in OR in the past for treatment. The last X-Rays were taken in 05/24/2020. Pt had a prophy in 06/22/2021 but was not very cooperative. the decision was made to put him back on the OR list for an Exam, X-Rays and Prophy and if any work that needs to be done. Legal Guardian: Reynaldo Dolan Yaya [phone] [facility] Nurse : [phone] Dr. Olson and I explained to Reynaldo and manager career that it would be in the best interest for Mlian to go to the OR and have all the treatment done at once. Discussed the medical necessity of the problem with the pt. Instructions given to manager career about OR. Examination was done by Dr. Wesley FORREST. JAMEEL Lama RDH ----- Signed on Tuesday, December 13, 2022 at 4:48:50 PM ----- ----- Provider: Leeann Castro DDS -- Clinic: [facility] ----- documented in this encounter [facility] 06-12-2022 History of Present illness Narrative Est Patient JAMES: 01/25/21 Chief Complaint: Mycosis Fungoides History of Present Ilness: Milan Ramos is a 36 year old male Patient is here for: 1) MF follow up New lesions: not per caregiver Caregiver says he always itches, especially on back Current treatment: Hydrocortisone cream 1% vaseline to arms to avoid friction per paperwork - tanning bell for 10 minutes once-twice month Patient resides at [facility] Pertinent Past Medical History: History of skin cancer or atypical nevi No Per Dr. 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 (patient is non-verbal) Pertinent Family medical history: History of melanoma No Review of Systems: Constitutional: Denies fever, chills, night sweats, unintentional weight loss. Skin per HPI. No other new/concerning skin growth. 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 CTCL, MF type, Stage IA - stable since previous visit, BSA <1% Pruritus, mild on back -Continue tanning every other week 10 min. If any burning let us know. Discuss tanning and known increased risk of skin cancer so want to keep this therapy at minimal level. -Continue hydrocortisone 2.5% cream as needed up to twice daily Sunday-Sunday as needed to any active patches, although no active patches are noted today. Refill provided today. - Paperwork for patient's living facility filled out at today's visit. Return to clinic 1 year or sooner if something concerning arises. Mariah Gillespie MD Dermatology Resident The documentation for this note was completed by Denisha Gandara RN acting as scribe for Carie Briseno MD. June 12, 2022 11:38 AM. I agree with the Chief Complaint, ROS, and Past Histories independently gathered by the clinical mission support specialist and the remaining scribed note accurately describes my personal service to the patient. I saw and evaluated Milan Ramos, as well as developed and discussed the assessment and plan with the Resident. I have reviewed the Resident's note and agree with the history and physical examination as described, as well as the assessment and plan of care. The resident's note was annotated by me as needed to reflect my direct input. Carie Briseno MD 06/12/22 documented in this encounter [facility] 03-08-2022 Note PROCEDURE: XR ESOPHA FATOU, XR CINERADIOGRAPHY COMPARISON: None. HISTORY: Intestinal obstruction TECHNIQUE: An air contrast upper gastrointestinal series was performed in the usual manner. Standard level fluoroscopic mode of operation utilized. FINDINGS: ESOPHAGUS:No visible obstruction, dilatation, reflux or hernia . OTHER: Negative. IMPRESSION: 1. Normal esophagram. Electronically authenticated by: GENNY MOON Date: 2022-03-08 14:02 [facility] 03-08-2022 Note PROCEDURE: XR ESOPHA FATOU, XR CINERADIOGRAPHY COMPARISON: None. HISTORY: Intestinal obstruction TECHNIQUE: An air contrast upper gastrointestinal series was performed in the usual manner. Standard level fluoroscopic mode of operation utilized. FINDINGS: ESOPHAGUS:No visible obstruction, dilatation, reflux or hernia . OTHER: Negative. IMPRESSION: 1. Normal esophagram. Electronically authenticated by: GENNY MOON Date: 2022-03-08 14:02 [facility] 06-22-2021 History of Present illness Narrative ----- Tuesday, June 22, 2021 at 2:04:22 PM ----- ----- Provider: [id number] - Gina Carter Hygienist -- Clinic: [place] ----- Pt presents for examination No radiographs taken today due to pt cooperation. No decay noted during clinical examination. Moderate to heavy plaque build-up. Provided pt with tooth brush prophy and fluoride varnish. Advised for re-evaluation in a year. Pt was last seen in the OR May 2020 and will not be eligible until May 2022. Gina HOANG/ Dr. Marleny FORREST. EXAM ----- Signed on Tuesday, June 22, 2021 at 3:26:23 PM ----- ----- Provider: [id number] Elza Castro DDS -- Clinic: [place] ----- documented in this encounter [facility] Evaluation note Diagnosis Mycosis fungoides, unspecified body region (HCC)- Primary Pruritus Unspecified pruritic disorder documented in this encounter [facility] note* Diagnosis Mycosis fungoides, unspecified body region (HCC)- Primary Pruritus Unspecified pruritic disorder documented in this encounter [facility] note* Diagnosis Mycosis fungoides, unspecified body region (HCC)- Primary Pruritus Unspecified pruritic disorder Irritant contact dermatitis, unspecified trigger documented in this encounter [facility] note* Diagnosis Mycosis fungoides, unspecified body region (HCC)- Primary Pruritus Unspecified pruritic disorder Irritant contact dermatitis, unspecified trigger documented in this encounter [facility] note* Diagnosis Seizure disorder- Primary Unspecified epilepsy without mention of intractable epilepsy Encounter for dental examination Dental examination documented in this encounter [facility] [employer] Work Phone: Summary Purpose Family History No Family History Records FoundNo Family History Records FoundNo Family History Records FoundNo Family History Records FoundNo Family History Records Found Advance Directives No Advanced Directives Records FoundNo Advanced Directives Records FoundNo Advanced Directives Records FoundNo Advanced Directives Records FoundNo Advanced Directives Records Found Additional Source Comments Care Teams (unrecognized sec tion and content) Transmission Maintenance Supervisor Relationship Specialty Start Date End Date Sandra Cordero DDS [address] [place] [address] [id number] Resident Dentistry 11/11/19 Ankush Walls MD [address] [place] [id number] Physician Plastic Surgery 01/09/20 Sharlene Jaramillo APRN-[employer] [address] [place] [address] [place] [address] SPRAGGER Anesthesiology 06/11/20 Transmission Maintenance Supervisor Relationship Specialty Start Date End Date Todd Avendano [address] [place] [address] PCP - General 05/15/00 Transmission Maintenance Supervisor Relationship Specialty Start Date End Date Sandra Cordero DDS [address] [place] [id number] Resident Dentistry 11/11/19 Ankush Walls MD [address] [place] [id number] Physician Plastic Surgery 01/09/20 Sharlene Jaramillo APRN-[employer] [address] [place] [address] [place] [address] SPRAGGER Anesthesiology 06/11/20 Transmission Maintenance Supervisor Relationship Specialty Start Date End Date Todd Avendano [address] [facility] [address] PCP - General 05/15/00 Transmission Maintenance Supervisor Relationship Specialty Start Date End Date Todd Avendano [address] [place] [address] PCP - General 05/15/00 Transmission Maintenance Supervisor Relationship Specialty Start Date End Date Todd Avendano [address] [place] [address] PCP - General 05/15/00 Transmission Maintenance Supervisor Relationship Specialty Start Date End Date Todd Avendano [address] [place] [address] PCP - General 05/15/00 (unrecognized sect ion and content) No Status Records FoundNo Status Records FoundNo Status Records FoundNo Status Records FoundNo Status Records Found INFORMATION SOURCE (unrecogn ized section and content) DATE CREATED AUTHOR 05/12/2022 [facility] DATE CREATED AUTHOR AUTHOR'S ORGANIZ ATION 12/20/2022 [facility] DATE CREATED AUTHOR AUTHOR'S ORGANIZ ATION 05/04/2023 [facility] DATE CREATED AUTHOR AUTHOR'S ORGANIZ ATION 06/24/2023 [facility] DATE CREATED AUTHOR AUTHOR'S ORGANIZ ATION 08/09/2024 [facility] Source Comments (unrecognize d section and content) In the event this informatio n is protected by the Federal Confidentiality of Alcohol and Drug Abuse Patient Records regulations: The Federal rules restrict any use of the information to criminally investigate or prosecute any alcohol or drug abuse patient.[facility] the event this information is protected by the Federal Confidentiality of Alcohol and Drug Abuse Patient Records regulations: The Federal rules restrict any use of the information to criminally investigate or prosecute any alcohol or drug abuse patient.[facility] the event this information is protected by the Federal Confidentiality of Alcohol and Drug Abuse Patient Records regulations: The Federal rules restrict any use of the information to criminally investigate or prosecute any alcohol or drug abuse patient.[facility] the event this information is protected by the Federal Confidentiality of Alcohol and Drug Abuse Patient Records regulations: The Federal rules restrict any use of the information to criminally investigate or prosecute any alcohol or drug abuse patient.[facility] the event this information is protected by the Federal Confidentiality of Alcohol and Drug Abuse Patient Records regulations: The Federal rules restrict any use of the information to criminally investigate or prosecute any alcohol or drug abuse patient.[facility] the event this information is protected by the Federal Confidentiality of Alcohol and Drug Abuse Patient Records regulations: The Federal rules restrict any use of the information to criminally investigate or prosecute any alcohol or drug abuse patient.[facility] Reason for Visit (unrecogniz ed section and content) Reason Comments Follow Up Reason Comments Derm Problem Reason Comments Mycosis fungoides, 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 [employer] uploaded to pt chart FOR RECORDS PERTAINING TO PATIENTS WHO ARE OR HAVE BEEN ENROLLED IN A CHEMICAL DEPENDENCY/SUBSTANCEABUSE PROGRAM, SOME INFORMATION MAY BE OMITTED. This clinical summary was aggregated from multiple sources. Caution should be exercised in using it in the provision of clinical care. This summary normalizes information from multiple sources, and as a consequence, information in this document may materially change the coding, format and clinical context of patient data. In addition, data may be omitted in some cases. CLINICAL DECISIONS SHOULD BE BASED ON THE PRIMARY CLINICAL RECORDS. [facility] [employer] [facility]. provides no warranty or guarantee of the accuracy or completeness of information in this document.
[2024-08-22 07:04] LABS: Hematocrit 38.6 % (42.0-54.0); Hemoglobin 13.1 g/dL (14.0-18.0); Immature Granulocytes Abs Auto 0.00 10^3/uL (0.00-0.03); Immature Granulocytes Pct Auto 0.0 % (0.0-0.5); Lymphocytes Absolute Auto 2.1 10^3/uL (1.2-3.8); Mean Corpuscular HGB Conc 33.9 g/dL (29.9-35.2); Mean Corpuscular Hemoglobin 31.4 pg (25.9-34.0); Mean Corpuscular Volume 92.6 fL (80.0-94.0); Platelet Count 205 10^3/uL (150-450); Red Blood Count 4.17 10^6/uL (4.70-6.10); White Blood Count 5.1 10^3/uL (4.0-11.0)
[2024-08-22 07:15] LABS: Alanine Aminotransferase 17 U/L (16-63); Albumin Globulin Ratio 0.8; Albumin Level 3.1 g/dL (3.4-5.0); Alkaline Phosphatase 65 U/L (46-116); Anion Gap 13.7; Aspartate Amino Transferase 15 U/L (15-37); Blood Urea Nitrogen 7.0 mg/dL (7.0-18.0); Calcium 8.6 mg/dL (8.5-10.1); Carbon Dioxide 29.7 mmol/L (21.0-32.0); Chloride 101 mmol/L (98-107); Estimated GFR (African America >60 (>=60 mL/min/1.73m^2); Estimated GFR (Non-African Ame >60 (>=60 mL/min/1.73m^2); Free T3 2.21 pg/mL (2.18-3.98); Globulin 3.7 g/dL; Glucose 86 mg/dL (74-106); Potassium 4.4 mmol/L (3.5-5.1); Sodium 140 mmol/L (136-145); Thyroid Stimulating Hormone 1.503 uIU/mL (0.358-3.740); Total Protein 6.8 g/dL (6.4-8.2)
== END 2024-08-22 06:35 | disposition home or self-care (01) ==
LOC: LAB 06:34
PROVIDERS: PCP Family Medicine; Visit Provider Family Medicine
DX: E03.9 Hypothyroidism, unspecified (principal); G40.909 Epilepsy, unspecified, not intractable, without status epilepticus; F31.9 Bipolar disorder, unspecified; L40.0 Psoriasis vulgaris; F90.9 Attention-deficit hyperactivity disorder, unspecified type; C84.A0 Cutaneous T-cell lymphoma, unspecified, unspecified site; Z79.899 Other long term (current) drug therapy
CPT/HCPCS: 36415; 80053; 84439; 84443; 84481; 85025

== ENCOUNTER 2024-12-18 06:44 | Outpatient (OUT) | payer MEDICARE, MEDICAID, SELFPAY ==
--- OUTSIDE RECORDS SUMMARY | 2024-12-18 06:47 | XMS_ITS | CCD ---
Author Organization [facility] Care Team Providers Care Compounder Flavorings Name Role Phone Consuelo MCGARRY, Nour Unavailable Ankush Walls MD Unavailable Moga PUNCH MACHINE OPERATOR-MANAGER SAFE, Crystal Unavailable FRANCISCO, DR CIERRA Ahmadi Primary [...] Unavailable Todd Avendano A Primary Care Provider Consuelo MCGARRY Nour Unavailable Ankush Walls MD Unavailable Moga PUNCH MACHINE OPERATOR-MANAGER SAFE, Crystal Unavailable PROVIDER, UNKNOWN Admitting Unavailable PROVIDER, UNKNOWN Attending Unavailable PROVIDER, UNKNOWN Admitting Unavailable PROVIDER, UNKNOWN Attending Unavailable SINGH, CIERRA Admitting Unavailable SINGH, CIERRA Attending Unavailable SINGH, CIERRA Admitting Unavailable SINGH, CIERRA Attending Unavailable NICOLE, SWAPNA Attending Unavailable NICOLE, SWAPNA Admitting Unavailable SINGH, CIERRA Admitting Unavailable SINGH, CIERRA Attending Unavailable DOLCE, KENYA Herrera Referring Unavailable DOLCE, KENYA Herrera Attending Unavailable DOLCE, KENYA Herrera Attending Unavailable DOLCE, KENYA Herrera Attending Unavailable DOLCE, KENYA Herrera Referring Unavailable Elder, Todd A Primary Care Provider [phone] CARIE BRISENO Attending Unavailable SELF Referring Unavailable ELDER, TODD A Primary Care Unavailable SUZANNACARIE LIM Attending Unavailable ELDER, TODD A Primary Care Unavailable CARIE BRISENO Attending Unavailable SELF Referring Unavailable ELDER, TODD A Primary Care Unavailable Unavailable Primary Care Provider Unavailabl e Allergies Allergy ClassificationReported Allergen(s)Allergy TypeDate of OnsetReaction(s) Facility (12 sources)Cefaclor; Translations: [CEFACLOR]Drug Imopary68-03-4684Zxuao [facility] (5 sources)Environmental allergy; Translations: [ENVIRONMENTAL]Propensity to adverse reactions to unuelagns95-30-3326FcidoqhJfynoVuuzlu (12 sources)Erythromycin / sulfiSOXAZOLE; Translations: [ERYTHROMYCIN-SULFISOXAZOLE]Drug Zogvlgy91-53-6962Fstbt, IntoleranceMetTriHealth [facility] (1 source)CefaclorDrug Wjiiqfc86-84-1100Bmv [facility] Repository (1 source)Erythromycin / sulfiSOXAZOLEDrug Iheyjom17-23-6310LmqCleveland Clinic [facility] (7 sources)Seasonal allergy; Translations: [SEASONAL ALLERGIES]Allergy to htlyzebwf88-42-2645YxdksojAxsfwdffc Clinic Medications Current Medications MedicationDrug Class(es)DatesSig (Normalized)Sig (Original)acetaminophen 325 mg oral tablet (6 sources)Start: 22-44-2957NEKSXMSHBYSVA 325 MG TAB takes one to two tablets every 4-6 hours as needed 0 09/24/2008 ActiveComment on above:takes one to two tablets every 4-6 hours as neededascorbic acid 250 mg oral tablet (7 sources)Vitamin Ctake 1 tablet by mouth once dailyAscorbic acid 250 MG tablet Take 1 tablet by mouth daily. ActiveComment on above:Take 250 mg by mouth once daily.bisacodyl 10 mg rectal suppository (6 sources)Stimulant LaxativeStart: 74-95-2379llshjkyqf(DULCOLAX 10 MG RECTAL SUPPOSITORY) takes as directed as needed rectally 0 09/24/2008 ActiveComment on above:takes as directed as needed rectallycarBAMazepine 200 mg oral tablet (7 sources)Mood Stabilizertake 2 tablets by mouth twice dailycarBAMazepine 200 MG tablet Take 2 tablets by mouth 2 times daily. Activetake 1 capsule by mouth twice daily, then take 1 capsule by mouth every twelve hourscarBAMazepine ER (CARBATROL) 200 mg 12 hr capsule Take 200 mg by mouth twice daily. ActiveComment on above:Take 200 mg by mouth twice daily.cholecalciferol 0.125 mg oral tablet (7 sources)Vitamin Dtake 1 tablet by mouth once dailycholecalciferol 125 MCG (5000 UNIT) tablet Take 1 tablet by mouth daily. ActiveComment on above:Take 5,000 Units by mouth once daily.clindamycin 300 mg oral capsule (8 sources)Lincosamide AntibacterialStart: 25-63-6712hgdf 1 capsule by mouth four times dailyclindamycin (CLEOCIN) 300 MG capsule TAKE 1 CAPSULE BY MOUTH 4 TIMES DAILY FOR 7 DAYS. 28 Capsule ActiveStart: 09-24-2008 CLINDAMYCIN 1 % TOPICAL SOLN Apply to affected area(s) twice daily. 0 09/24/2008 ActiveComment on above:Apply to affected area(s) twice daily.guaiFENesin (6 sources)guaifenesin (MUCUS RELIEF ORAL) Take by mouth. Activeguaifenesin (MUCUS RELIEF ORAL) Take by mouth. 0 ActiveComment on above:Take by mouth. guanFACINE 1 mg oral tablet (10 sources)Central alpha-2 Adrenergic AgonistStart: 54-08-9431guoo 1 tablet by mouth twice dailyguanfacine (TENEX) 1 MG tablet TAKE ONE TABLET BY MOUTH TWICE A DAY TENEX 05/06/2020 ActiveStart: 75-36-8871FCRXSXCWJF 1 MG TAB Take one(1) tablet daily. 0 09/24/2008 ActiveComment on above:Take one(1) tablet daily. hydrocortisone 25 mg/ml topical cream (16 sources)CorticosteroidStart: 58-27-3878ucnyfggrrdeyvk 2.5 % cream Apply to affected areas on trunk and extremities two times daily Mon to Fri 453.6 g 3 04/02/2019 ActiveStart: 01-25-2015 End: 40-67-6902bmesnzbklknext 2.5 % cream Apply up to twice daily to active areas as needed 60 g 5 11/19/2023 Activehydrocortisone 2.5 % Cream Apply 1 Application topically 2 times daily as needed. ActiveComment on above:Apply to affected areas on trunk and extremities two times daily Mon to FriApply to affected areas on trunk and extremities twice daily as needed Mon to Fri lactulose 667 mg/ml oral solution (6 sources)Osmotic LaxativeStart: 75-59-3967kopxrasvf(ENULOSE 10 GRAM/15 ML ORAL SOLN) takes one tablespoon three times daily 0 09/24/2008 ActiveComment on above:takes one tablespoon three times dailylevothyroxine sodium 0.075 mg oral tablet (11 sources)l-ThyroxineStart: 86-58-9357nnis 1 tablet by mouth once daily levothyroxine (SYNTHROID) 75 MCG tablet TAKE ONE TABLET BY MOUTH ONCE DAILY SYNTHROID 05/06/2020 ActiveLevothyroxine 75 mcg cap Take by mouth once daily. ActiveComment on above:Take by mouth once daily.linaclotide 0.29 mg oral capsule (11 sources)Guanylate Cyclase-C AgonistStart: 10-42-8275oqzs 1 capsule by mouth once dailyLinzess 290 MCG CAPS capsule Take 290 mcg by mouth daily. 05/06/2020 Activetake 6 capsules by mouth once daily in the morninglinaCLOtide (LINZESS) 290 mcg capsule Take by mouth DAILY (6 AM). ActiveComment on above:Take by mouth DAILY (6 AM).lithium carbonate 150 mg oral capsule (6 sources)Start: 49-65-2783LHCHTDM CARBONATE 150 MG CAP Take one(1) tablet two(2) times daily. 0 09/24/2008 ActiveComment on above:Take one(1) tablet two(2) times daily.loratadine 10 mg oral tablet (7 sources)Start: 21-78-3766avckwxxypp(CLARITIN 10 MG TAB) takes one tablet daily as needed as directed 0 09/24/2008 ActiveComment on above:takes one tablet daily as needed as directedmineral oil/hydrophil petrolatum (PETROLATUM) oint (6 sources)Start: 41-50-6074lssfrec oil/hydrophil petrolatum (PETROLATUM) oint Please apply to arms 3-4 times daily and as needed to prevent frictional irritation 04/03/2019 ActiveStart: 01-28-1034uyepmzk oil/hydrophil petrolatum (PETROLATUM) oint Please apply to arms 3-4 times daily and as needed to prevent frictional irritation 0 04/03/2019 ActiveComment on above:Please apply to arms 3-4 times daily and as needed to prevent frictional irritationmometasone furoate 0.05 mg/actuat metered dose nasal spray (6 sources)CorticosteroidStart: 23-42-5714yircutsktj furoate(NASONEX 50 MCG/ACTUATION SPRAY) [place] twice in each nostril once daily. 0 09/24/2008 Active Comment on above:[place] twice in each nostril once daily.montelukast 10 mg oral tablet (11 sources)Leukotriene Receptor AntagonistStart: 03-49-8571bicd 1 tablet by mouth at bedtimemontelukast (SINGULAIR) 10 MG tablet Take 10 mg by mouth at bedtime. 05/06/2020 ActiveComment on above:Take 10 mg by mouth daily at bedtime. Multiple Vitamin (Multi-Vitamins) tablet (4 sources)Start: 30-34-3237dtls 1 tablet by mouth once dailyMultiple Vitamin (Multi-Vitamins) tablet Take 1 Tablet by mouth daily. 05/06/2020 ActiveStart: 62-14-7091mqjh 1 tablet by mouth once dailyMultiple Vitamin (Multi-Vitamins) tablet Take 1 Tablet by mouth daily. 0 05/06/2020 Activemultivitamins(DAILY MULTIVITAMIN TAB) (6 sources)Start: 78-65-8386eracurptozivh(DAILY MULTIVITAMIN TAB) Take one(1) tablet daily. 0 09/24/2008 ActiveComment on above:Take one(1) tablet daily. ondansetron 4 mg oral tablet (7 sources)Serotonin-3 Receptor Antagonisttake 1 tablet by mouth every six hours as neededOndansetron 4 MG tablet Take 1 tablet by mouth every 6 hours as needed. ActiveComment on above:Take 4 mg by mouth as directed.petrolatum 1 mg/mg topical ointment (4 sources)Start: 75-19-7239Qonjcsc Oil-Hydrophil Petrolat OINT Please apply to arms 3-4 times daily and as needed to prevent frictional irritation 04/03/2019 Activephenol (1 source)Phenol (VASELINE CARBOLATED PETROLEUM EX) Apply topically. Active Polyethylene Glycols (6 sources)polyethylene glycol 3350 ([id number] ORAL) Take by mouth. Active polyethylene glycol 3350 (YOO0098 ORAL) Take by mouth. 0 ActiveComment on above: Take by mouth.Promethazine (6 sources)Phenothiazinepromethazine HCl (PHENERGAN ORAL) Take by mouth. Active promethazine HCl (PHENERGAN ORAL) Take by mouth. 0 ActiveComment on above:Take by mouth.risperiDONE 0.25 mg oral tablet (1 source)Atypical Antipsychotictake 1 tablet by mouth three times daily risperiDONE 0.25 MG tablet Take 1 tablet by mouth 3 (three) times a day. Active sennosides, mcfp 8.6 mg oral tablet (7 sources)take 2 tablets by mouth twice dailySenna 8.6 MG tablet Take 2 tablets by mouth 2 times daily. Activetake 1 tablet by mouth twice dailysenna (SENOKOT) 8.6 mg tab Take 8.6 mg by mouth twice daily. ActiveComment on above:Take 8.6 mg by mouth twice daily.silver sulfADIAZINE 10 mg/ml topical cream (6 sources)Sulfonamide AntibacterialStart: 76-99-3170tegdev sulfadiazine(SSD AF 1 % TOPICAL CREAM) applies to affected area daily as directed 0 09/24/2008 ActiveComment on above:applies to affected area daily as directedtriamcinolone acetonide 1 mg/ml topical cream (10 sources)CorticosteroidStart: 05-12-2024 End: 57-24-9954adxbcvfcywzcv acetonide (KENALOG) 0.1 % cream Indications: Mycosis fungoides, unspecified body region (HCC) , Pruritus Apply a small amount to pink patches on the hips, thighs, and buttocks twice daily Sunday-Sunday for four weeks then decrease to once per day, Sunday-Sunday. Avoid face, groin folds , and armpits. Can hold application when no pink rash seen. 453.6 g 1 05/12/2024 ActiveStart: 92-28-5587cobbidpxxwcsj acetonide (KENALOG) 0.1 % cream Apply to affected areas twice daily for two weeks, then resume hydrocortisone 80 g 11/19/2023 Activetriamcinolone 0.1 % Cream cream Apply 1 Application topically. Nnvnfq74 hr divalproex sodium 250 mg extended release oral tablet (11 sources)Mood Stabilizer, Anti-epileptic AgentStart: 97-28-4360luiq 1 tablet by mouth every twelve hoursdivalproex ER (DEPAKOTE ER) 250 MG ER tablet TAKE ONE TABLET BY MOUTH EVERY 12 HOURS DEPAKOTE ER 05/06/2020 ActiveStart: 09-24-2008 divalproex sodium(DEPAKOTE 500 MG TAB) takes three tablets at bedtime daily 0 09/24/2008 ActiveComment on above:takes three tablets at bedtime dailyzinc gluconate 50 mg oral tablet (7 sources)take 1 tablet by mouth once dailyZinc Gluconate 50 MG tablet Take 1 tablet by mouth daily. ActiveZINC GLUCONATE ORAL Take by mouth. ActiveZINC GLUCONATE ORAL Take by mouth. 0 ActiveComment on above:Take by mouth.zinc oxide 130 mg/ml topical cream (1 source)Zinc Oxide (Desitin) 13 % Cream Apply topically at bedtime as needed. Active Problems Active Problems Problem ClassificationProblemDateDocumented DateEpisodic/ChronicAllergic reactions (4 sources)Irritant contact dermatitis; Translations: [Irritant contact dermatitis, unspecified cause]Onset: 324337-16-1025BpymatatVgjqmyteg- deficit, conduct, and disruptive behavior disorders (1 source)Attention deficit hyperactivity disorder; Translations: [Attention- deficit hyperactivity disorder, unspecified type]Onset: 115965-09-6779 ChronicBlindness and vision defects (1 source)Astigmatism; Translations: [Unspecified astigmatism, unspecified eye] Onset: 536920-71-4131ZqpgbywrPfxagtnntlqyj disorders (3 sources)Unspecified intellectual disabilities; Translations: [Severe intellectual disability]Onset: 864017-91-3171SskfjhrItpgkukv; convulsions (3 sources)Epilepsy, unspecified, not intractable, without status epilepticus; Translations: [Seizure disorder]Onset: 182709-71-0528IxmasnfVhngwsotkb obstruction without hernia (4 sources)Other intestinal obstruction unspecified as to partial versus complete obstruction; Translations: [OTH INTEST OBS UNS PART VS CMPL OBS]Onset: 01-99-7919JyrietpeSgytyehrkzliy mental health disorders (1 source)Dissociative disorder; Translations: [Dissociative and conversion disorder, unspecified]Onset: 577208-04-5105UjhidhbVuva disorders (2 sources)Bipolar disorder, unspecified; Translations: [Bipolar disorder]Onset: 003359-34-6553IkqvvgsDdp-Djhorwx`s lymphoma (17 sources)Mycosis fungoides (clinical); Translations: [Mycosis fungoides, unspecified site]Onset: 349286-37-4572ZjpguczDplgi aftercare (5 sources)Other correction (current) drug therapy; Translations: [OTH HR RECRUITER CURRENT DRUG THERAPY]Onset: 76-43-2651RvrmxrlgVivtt congenital anomalies (1 source)Angelman syndrome; 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]Onset: 08-20-2024 03-37-0827HorszctZhkyl gastrointestinal disorders (1 source)Chronic constipation; Translations: [Other constipation]Onset: 403186-26-1125OjezzzogYkzfi gastrointestinal disorders (1 source)Oral phase dysphagia; Translations: [Dysphagia, oral phase]Onset: 256862-45-8127PpjzgeptFbxfi gastrointestinal disorders (1 source)Pharyngeal dysphagia; Translations: [Dysphagia, pharyngeal phase] Onset: 765191-47-3650VymfonqqXkowi inflammatory condition of skin (1 source)Itching of skin; Translations: [Pruritus, unspecified]EpisodicOther upper respiratory disease (1 source)Seasonal allergic rhinitis; Translations: [Other seasonal allergic rhinitis]Onset: 763623-58-3173TfkmqwyNskjxpq disorders (1 source)Hypothyroidism; Translations: [Hypothyroidism, unspecified]Onset: hronic Past or Other Problems Problem ClassificationProblemDateDocumented DateEpisodic/ChronicDisorders of teeth and jaw (4 sources)Dental caries; Translations: [Dental caries, unspecified]Onset: 951652-71-2976LtlgugclE Codes: Natural/environment (1 source)Exposure to other specified factors, initial encounter; Translations: [EXPOSURE OTHER SPEC FACTORS INITIAL]Onset: 07-01-3686HpnskdbbZwgbmchwai disorders (1 source)Hormone replacement therapy; Translations: [HORMONE REPLACEMENT THERAPY]Onset: 25-52-8893JyqywqmiNylis inflammatory condition of skin (4 sources)Pruritus, unspecified; Translations: [Unspecified pruritic disorder] Onset: 369786-09-4072ZtkrofrnQgdvz injuries and conditions due to external causes (4 sources)Food in esophagus causing other injury, initial encounter; Translations: [FOOD ESOPH CAUS OTH INJURY INIT ENC]Onset: 70-85-5981Oxfvahfp Other injuries and conditions due to external causes (1 source)Foreign body in stomach, initial encounter; Translations: [FOREIGN BODY STOMACH INITIAL ENCNTR]Onset: 73-87-9627Xjwxrsrr Results Test NameValueInterpretationReference RangeFacilityCNOVon 90-02-0035UICLWohybl Visit (DERMMN) MILAN RAMOS ([id number]) 1985 M Date Time Provider Department 08/04/24 10:40 AM CARIE BRISENO DERMMN During your visit today, we recorded the following information about you: Carie Briseno MD 08/06/2024 8:52 PM Signed Established Patient LV 05/12/2024 Chief Complaint: Mycosis Fungoides History of Present Ilness: Milan F Yaya is a 38 year old male Patient [...] needed. Moisturizing lotion daily Patient resides at [facility], here with Mother and Father Pertinent Past [...] Past Histories independently gathered by the clinical support team assoc and the remaining scribed note accurately describes [...] - Continue triamcinolone 0.1% cream twice daily M- as needed. Apply to pink patches on [...] CECLOR (CEFACLOR) 09/24/2008 4 - Hives PEDIAZOLE (ERYTHROMYCIN-SULFISOXA*04/13/2009 5 - Intolerance SEASONAL ALLERGIES 06/11/2012 9 - Itching Date Reviewed: 08/04/2024 Reviewed by: Renny (more content not included)...[facility]St[facility] CNPNon 81-99-3924RTZUXqhlwhyyq (DERMMN) MILAN RAMOS ([id number]) 1985 M Date Time Provider Department 06/10/24 CARIE BRISENO DERMHOLGER During your visit today, we recorded the following information about you: Ivory Diez 06/10/2024 9:46 AM Signed Received phone call from Reina from [facility]. Asked if triamcinolone acetonide (KENALOG) 0.1 % cream be used as PRN? Also can nurse's stop giving patient Desitin cream? Best number to call Reina is [phone] Carie Briseno MD 06/10/2024 3:30 PM Signed [...] PM Signed Spoke to nurse staff at [place], Gave instructions to staff how and when to apply creams. Allergies As of Date: 06/10/2024 Noted Allergy Reaction CECLOR (CEFACLOR) 09/24/2008 4 - Hives PEDIAZOLE (ERYTHROMYCIN-SULFISOXA*04/13/2009 5 - Intolerance SEASONAL ALLERGIES 06/11/2012 9 - Itching Date Reviewed: 05/12/2024 Reviewed by: Olivia Bishop, RN - Fully Assessed Prescriptions as of 06/11/2024 [...] DAILY (6 AM). - polyethylene glycol 3350 ([id number] ORAL) Take by mouth. - ascorbic acid, [...] daily - mometasone furoate(NASONEX 50 MCG/ACTUATION SPRAY) [place] twice in each nostril once daily. - multivitamins(DAILY MULTIVITAMIN TAB) Take one(1) tablet daily. - LITHIUM CARBONATE 150 MG CAP Take one(1) tablet two(2) times daily. Problem List As Of Date 06/10/2024 Noted Resolved Mycosis fungoides (HCC) [C84.00] 06/18/2008 Encounter Status:Closed by IVORY DIEZ on 06/10/24[facility] 20-30-5807HGQIUcykwr Visit (DERMMN) MILAN RAMOS ([id number]) 1985 M Date Time Provider Department 05/12/24 [...] 2 weeks of triamcinolone Patient resides at [facility] Pertinent Past Medical History: History of skin [...] Past Histories independently gathered by the clinical support team assoc and the remaining scribed note accurately describes [...] CECLOR (CEFACLOR) 09/24/2008 4 - Hives PEDIAZOLE (ERYTHROMYCIN-SULFISOXA*04/13/2009 5 - Intolerance SEASONAL ALLERGIES 06/11/2012 9 - Itching Date Reviewed: 05/12/2024 Reviewed by: Olivia Bishop RN - Fully Assessed Reason for Visit: Mycosis fungoides, unspecified body region (HCC) [Other] Primary Visit Diagnosis:Mycosis fungoides, unspecified body region (more content not included)...NormalWilson HealthOV 96-30-3378XCPJDmmsmu Visit (DERMMN) MILAN RAMOS Lachelle ([id number]) 1985 M Date Time Provider Department 11/19/23 11:40 AM CARIE BRISENO During your visit today, we recorded the following information about you: Carie Briseno MD 11/24/2023 11:42 AM Signed Est Patient AJMES: 01/25/[birth year] Chief Complaint: Mycosis Fungoides History of [...] 10 minutes once-twice month Patient resides at [facility] Pertinent Past Medical History: History of skin [...] Past Histories independently gathered by the clinical support team assoc and the remaining scribed note accurately describes [...] CECLOR (CEFACLOR) 09/24/2008 4 - Hives PEDIAZOLE (ERYTHROMYCIN-SULFISOXA*04/13/2009 5 - Intolerance SEASONAL ALLERGIES 06/11/2012 9 - Itching Date Reviewed: 11/19/2023 Reviewed by: Lakia Cisneros OCCA - Fully Assessed Reason for Visit: Derm Problem [33] Primary Visit Diagnosis:Mycosis fungoides, unspecified body region (HCC) [C84.00] Other Visit Diagnosis:Pruritus [L29.9] Order(s):triamcinolone acetonide (KENALOG) 0.1 % creamApply to affected [...] 290 mcg capsule Take (more content not included)...NormalWilson HealthPNon 92-15-2354MJCEOurapqtfy (DERMMN) MILAN RAMOS ([id number]) 1985 M Date Time Provider Department 11/19/23 CARIE BRISENO DERMMN During your visit today, we recorded the following information about you: Parish Haskins 11/19/2023 3:22 PM Signed Nurse with [facility] called to clarify Hydrocortisone cream instructions - daily or as needed. Stated both medication and visit notes state as needed in the instructions. Allergies As of Date: 11/19/2023 Noted Allergy Reaction CECLOR (CEFACLOR) 09/24/2008 4 - Hives PEDIAZOLE (ERYTHROMYCIN-SULFISOXA*04/13/2009 5 - Intolerance SEASONAL ALLERGIES 06/11/2012 9 [...] DAILY (6 AM). - polyethylene glycol 3350 ([id number] ORAL) Take by mouth. - ascorbic acid, [...] daily - mometasone furoate(NASONEX 50 MCG/ACTUATION SPRAY) [place] twice in each nostril once daily. - multivitamins(DAILY MULTIVITAMIN TAB) Take one(1) tablet daily. - LITHIUM CARBONATE 150 MG CAP Take one(1) tablet two(2) times daily. 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] 06/18/2008 Encounter Status:Closed by PARISH HASKINS on 11/19/23NoAdena Pike Medical CenterCarbamazepineon 42-35-5074Ainpkkim Lvl5.6 microgram/mLNormal4.0-12.0 [facility] HospitalComment on above:Performed By: #### [id number] #### [facility] [address] [place], [place] [address]Flbdocclq Orderon 27-21-7462Xpugptfvq Order [id number]#1.00TIFFNormalMartin Memorial HospitalValproic Acidon 41-27-7260Fbqhlo Acid Lvl68 microgram/qDXlwtsc25-41VuwasuMartin Memorial HospitalComment on above:Performed By: #### [id number], [id number] #### [facility] [address] [place], [place] [address]DICay 55-63-1090Dtlqpzf [Mass/Vol]4.2 g/dLNormal3.3-5.0[facility] HospitalComment on above:Performed By: #### [id number], [id number], 8190930, 7051094, [id number] #### [facility] [address] [place] [address]Ebrgesm/Globulin [Mass ratio]1.6 {ratio}Normal1.1-2.2FTrinity Health SystemComment on above:Performed By: #### [id number], [id number], 0116770, 1485128, 2592099 #### [facility] [address] [place] [address]Mia Phos51 Int._Unit/VTmlczd70-73PopctrMartin Memorial Hospital Comment on above:Performed By: #### [id number], 3598649, 1633550, 4938789, 0843685 #### [facility] [address] [place] [address]ONO84 Int._Unit/LNormal6-46[facility] HospitalComment on above:Performed By: #### [id number], 8567831, 6873959, 1587369, 5584726 #### [facility] [address] [place] [address]Dzkrm gap [Moles/Vol]10 mmol/LNormal6-16[facility] HospitalComment on above:Performed By: #### [id number], 9774315, 6188431, 1888748, 8006927 #### [facility] [address] [place], [place] [address]LNF13 Int._Unit/LNormal5-43[facility] HospitalComment on above:Performed By: #### [id number], 6723423, 0877206, 1389585, 1619150 #### [facility] [address] [place], [place] [address]Hxpd Total0.4 mg/dLNormal0.0-1.1FTrinity Health System Comment on above:Performed By: #### [id number], 8828505, 2138398, 2509942, 1796510 #### [facility] [address] [place], [place] [address]BCO/Creat Ratio23 No IchdnIusw66-92NlxbluMartin Memorial Hospital Comment on above:Performed By: #### [id number], 2219718, 0286003, 1322540, 5789663 #### [facility] [address] [place] [address]Bmlwias [Mass/Vol]9.1 mg/dLNormal8.9-11.1FTrinity Health SystemComment on above:Performed By: #### [id number], 4752583, 9273246, 3964703, 0821971 #### [facility] [address] [place] [address]Cjllaiqz [Moles/Vol]104 mmol/XDppsyw428-522AjlqcmMartin Memorial HospitalComment on above:Performed By: #### [id number], 7735346, 4469033, 2889531, 4643683 #### [facility] [address] [place], [place] [address]UQ9 [Moles/Vol]34 mmol/MFtni86-87SxviagMartin Memorial Hospital Comment on above:Performed By: #### [id number], 1309382, 6310532, 9252984, 0030897 #### [facility] [address] [place] [address]Amptlxbhnn [Mass/Vol]0.6 mg/dLNormal0.5-1.3FTrinity Health SystemComment on above:Performed By: #### [id number], 2453007, 7686080, 3033849, 1092074 #### [facility] [address] [place], [place] [address]Cguuwgst (S) [Mass/Vol]2.7 g/dLNormal1.4-4.0Martin Memorial HospitalComment on above:Performed By: #### [id number], 9846543, 3932073, 7781988, 2393007 #### [facility] [address], [place] [address]Flezcpa [Mass/Vol]76 mg/jFLsudft62-549SorelwMartin Memorial HospitalComment on above:Performed By: #### [id number], 0802165, 8266704, 9680513, 8298861 #### [facility] [address], [place] [address]Vcaysllvn [Moles/Vol]4.5 mmol/LNormal3.5-5.3FTrinity Health SystemComment on above:Performed By: #### [id number], 8609603, 4463096, 4430066, 9647135 #### [facility] [address], [place] [address]Ehuuqff [Mass/Vol]6.9 g/dLNormal6.0-7.8Martin Memorial HospitalComment on above:Performed By: #### 43459796, 6820434, 6678325, 3077638, 7343354 #### [facility] [address], [place] [address]Nwrtom [Moles/Vol]143 mmol/DJqlisq795-004ArfujoMartin Memorial HospitalComment on above:Performed By: #### 62632130, 3644835, 9139671, 0945403, 2387802 #### [facility] [address], [place] [address]Gmoi nitrogen [Mass/Vol]14 mg/dLNormal5-21Martin Memorial HospitalComment on above:Performed By: #### 37200685, 4306132, 9814291, 8841358, 7804183 #### [facility] [address], [place] [address]Hlnj T4on 16-81-3335Bmeo T4 [Mass/Vol]0.73 ng/dLNormal0.58-1.64 Martin Memorial HospitalComment on above:Performed By: #### 61419163, 6059693, 6005579, 3626673, 6890323 #### [facility] [address], [place] [address]JENhs 04-80-4809AIE Qn2.82 m[IU]/LNormal0.34-5.60Martin Memorial HospitalComment on above:Performed By: #### 10821738, 3150404, 8679853, 4062021, 8782343 #### [facility] [address], [place] [address]zXSSuk 15-25-0666BAU/1.73 sq M.predicted among non-blacks MDRD (S/P/Bld) [Vol rate/Area]mL/min/{1.73_m2}Normal>=59[facility] Comment on above:Order Comment: Order added by Discern Expert.Performed By: #### [id number], 8586693, 2039065, 5959206, 0973566 #### [facility] [address], [place] [address]WXB w/Indiceson 32-64-4215Jneljoikrrs distribution width (RBC) [Ratio]12.9 %Vlkabp45.9-14.2FTrinity Health SystemComment on above: Performed By: #### 50222424, 3802205, 0086598, 6393792, 6151167 #### [facility] [address], [place] [address]Ielnmjmney (Bld) [Volume fraction]43.5 %Oftubw31.7-49.0Martin Memorial HospitalComment on above:Performed By: #### 63910485, 2706307, 4119441, 1379922, 3069860 #### [facility] [address], [place] [address]Ydjrmsezbl (Bld) [Mass/Vol]14.4 g/sTMciuvf24.5-17.5FTrinity Health SystemComment on above:Performed By: #### 85381647, 5605044, 9932119, 3986738, 5136306 #### [facility] [address] [place] [address]ECH (RBC) [Entitic mass]30.7 xeKxlfby59.0-34.0Martin Memorial HospitalComment on above:Performed By: #### 53725267, 3516556, 9152545, 5817371, 1803683 #### [facility] [address] [place] [address]AGWJ (RBC) [Mass/Vol]33.0 g/fOMxngea03.4-36.0Martin Memorial HospitalComment on above:Performed By: #### 86620754, 5032206, 0787410, 0438822, 2878411 #### [facility] [address] [place] [address]VOT (RBC) [Entitic vol]92.9 hOXaospd27.0-100.0Martin Memorial HospitalComment on above:Performed By: #### 74833702, 5064001, 6675949, 0723108, 9612023 #### [facility] [address] [place] [address]Clqqatlr mean volume (Bld) [Entitic vol]8.7 fLNormal6.4-10.8 [facility] Memorial HospitalComment on above:Performed By: #### 56673811, 4831005, 2505289, 3376120, 7169300 #### [facility] [address] [place] [address]Twgztrdrj (Bld) [#/Vol]205.0 E9/GKpwyiv745.0-500.0Martin Memorial HospitalComment on above:Performed By: #### 92906010, 1861331, 9140611, 2276944, 7287798 #### [facility] [address], [place] [address]FBV (Bld) [#/Vol]4.7 E12/LNormal4.3-5.9Martin Memorial HospitalComment on above:Performed By: #### 40460968, 3997469, 0023380, 4091729, 6995523 #### [facility] [address], [place] [address]OXB corrected for nucl RBC Auto (Bld) [#/Vol]6.6 E9/LNormal 4.0-11.0Martin Memorial HospitalComment on above:Performed By: #### 67492534, 3216130, 4640159, 7042538, 3593986 #### [facility] [address], [place] [address]Qvpplrikl Orderon 21-16-8777Esdpqxfkn Order [id number]#1.00TIFMercy Health Lorain HospitalCarbamazepineon 13-80-7735coiVFWzshpbzb [Mass/Vol]4.4 microgram/mLNormal 4.0-12.0Martin Memorial HospitalComment on above:Performed By: #### 3889125, 3803511 ####[facility] [address] [place], [place] [address]Tchwcrnzi Orderon 01-42-3903Jfknmjipi Order [id number]#1.00TIFMercy Health Lorain HospitalValproic Acidon 87-60-3458Nzwwumxbz [Moles/Vol]55 microgram/wXOkqntv43-58 [facility] HospitalComment on above:Performed By: #### 2054600, 0626310 ####[facility] [address] [place] [address] Progress Noteson 39-72-8636Kcfvsczhktcqr Authentication Interface Message Text ----- Tuesday, December 13, 2022 at 11:14:06 AM ----- ----- Provider: [id number] - Nilton Angelst -- Clinic: [place] ----- Pt is special needs and was accompanied by his father Reynaldo and director long term care from the [facility]. [facility], Pt is ready for tx., I was opening the X-Rays on the computer I felt him touching my hair, I turned to look at patient and his hand came at my face. Like a pie in your face is what the director long term care said. pt has been in OR in the past for treatment. The last X-Rays were taken in 05/24/2020. Pt had a prophy in 06/22/2021 but was not very cooperative. the decision was made to put him back on the OR list for an Exam, X-Rays and Prophy and if any work that needs to be done. Legal Guardian: Reynaldo LaroseRose Mary Ramos [phone] [facility] Nurse : [phone] Dr. Olson and I explained to Reynaldo and director long term care that it would be in the best interest for [place] to go to the OR and have all the treatment done at once. Discussed the medical necessity of the problem with the pt. Instructions given to director long term care about OR. Examination was done by Dr. Wesley FORREST. JAMEEL Lama [facility] ----- Signed on Tuesday, December 13, 2022 at 4:48:50 PM ----- ----- Provider: [id number] - Carlos Alberto Castro DDS -- Clinic: [place] -----NormalThe [facility] Physician Orderon 11-94-0175Comscwxsg Order [id number]#1.00CD:127NormalJose Cruz [facility] CenterValproic Acidon 38-63-5635Ltbxnjncm [Moles/Vol]38 microgram/cZXry24-10 Jose [facility] CenterComment on above:Performed By: #### [id number] #### [facility] [address] [place] [address]PQIKTYZZIBSCNgf 52-43-7636Hnheottycemws2.3 ug/mLNormal4.0-12.0 [facility] on above:Result Comment: In conjunction with other antiepileptic drugs Therapeutic 4.0 - 8.0 Toxicity 9.0 - 12.0 . Carbamazepine alone Therapeutic 8.0 - 12.0 . Detection Limit = 2.0 <2.0 indicates None DetectedPerformed By: #### CARBLC #### [facility] [address] [place] [address] Dr. Pedro Gilbert/ VALPROIC ACIDon 14-06-2669LWBTAQDT48.2 ug/mlNormal 50.0-100.0[facility] on above:Performed By: #### VALP #### [place] [address] Dr[address] Pedro FryCARBAMAZEPINEsoledad 91-60-9954Eegvhclzpjguh<0.5Critically low4.0-12.0 [facility] on above:Result Comment: In conjunction with other antiepileptic drugs Therapeutic 4.0 - 8.0 Toxicity 9.0 - 12.0 . Carbamazepine alone Therapeutic 8.0 - 12.0 . Detection Limit = 2.0 <2.0 indicated None Detected Verified by repeat analysisPerformed By: #### CARBLC #### [facility] [address] [place] [address] Dr. Pedro Gilbert/ VALPROIC ACIDon 40-00-7135UHQTVWQZ75.7 ug/mlNormal 50.0-100.0[facility] on above:Performed By: #### VALP #### [facility] [address] [place] [address] Dr. Pedro Gilbert/ VALPROIC ACIDon 19-49-6189IZPSKIBT64.4 ug/mlNormal 50.0-100.0[facility] on above:Performed By: #### VALP #### [facility] [address] [place] [address] Dr. Pedro FryPOTASSIUMon 23-60-0126Hiljgospu [Moles/Vol]4.0 mmol/LNormal 3.5-5.1The [facility] HospitalComment on above:Performed By: #### K #### [facility] [address] [address] [address] Pedro FryXR CHEST 1 Von 46-68-0663TG CHEST 1 VEXAM: XR CHEST 1 V at 1848 hours [...] Electronically authenticated by: ABELARDO BROWN Date: 2022-01-16 19:20[facility] Encounters Encounter DateEncounter TypeCare ProviderFacilityStart: 08-20-2024 End: 99-87-7689Jeepjvn encounter procedureGedomo Mena DDS Work Phone: General Practice ResidencyComment on above:Seizure disorder (Primary Dx); Encounter for dental examinationStart: 08-20-2024 End: 58-68-6898Gflkhpj encounter statusGeormelissa Mena DDS Work Phone: [facility] Work Phone: Start: 08-04-2024 End: 52-43-9098Wqciypw encounter procedureChvicky Briseno MD Work Phone: dermatologyComment on above:Mycosis fungoides, unspecified body region (HCC) (Primary Dx); Pruritus; Irritant contact dermatitis, unspecified triggerStart: 08-04-2024 End: 15-12-8085peycmllvxaQXCLAFTRO WARRENFacility:[facility] Start: 06-10-2024 End: 33-36-1218Pinclvqte encounterChvicky Briseno MD Work Phone: dermatologyStart: 05-12-2024 End: 18-48-8669Yaolrpv encounter procedureChvicky Briseno MD Work Phone: dermatologyComment on above:Mycosis fungoides, unspecified body region (HCC) (Primary Dx); Pruritus; Irritant contact dermatitis, unspecified triggerStart: 05-12-2024 End: 63-29-2526potzeigvipQDPERHSMV WARRENFacility:[facility] Start: 03-22-2024 End: 50-46-9671Lxgzmy encounterSandra Cordero DDS Work Phone: [facility]HealthStart: 11-19-2023 End: 68-75-9298Innzrnmmo encounterChvicky Briseno MD Work Phone: dermatologyStart: 11-19-2023 End: 55-82-9576uvbogribngTCDBMYRYL SUZANNAFacility:[facility] Start: 11-19-2023 End: 76-38-2378Hihfzd outpatient visit 15 minutesChvicky Briseno MD Work Phone: dermatologyComment on above:Mycosis fungoides, unspecified body region (HCC) (Primary Dx); PruritusStart: 06-18-2023 End: 35-20-8401phdyhsiozsIMUI D DOLCENot AvailableStart: 06-04-2023 End: 36-53-7120exusdxfxojYDCL D DOLCENot AvailableStart: 05-28-2023 End: 57-75-5740hoyhbqdtqdAMKH D DOLCENot AvailableStart: 05-02-2023 End: 29-25-3911wtptzgeqppLLTUXF HERRINGFacility:[facility]MCStart: 02-07-2023 End: 85-61-4415zlniezpkrbXWOWBC HERRINGFacility:FTMCStart: 12-20-2022 End: 06-94-8114uzqmnbkwegUUUTNN HERRINGFacility:FTMCStart: 12-13-2022 End: 00-48-8033dhxxrhthimPRQWZIV PROVIDERFacility:METROHealthStart: 12-13-2022 End: 52-18-5344Mmbblci encounter Arleen Wagner RDH Work Phone: [facility]Start: 10-10-2022 End: 93-09-7715ymraztpjaiSVVNWOK PROVIDERFacility:[facility]ROHealthStart: 06-12-2022 End: 17-84-9245Ehukxwd encounter procedureCarie Briseno MD Work Phone: dermatologyComment on above:Mycosis fungoides, unspecified body region (HCC) (Primary Dx); PruritusStart: 05-03-2022 End: 36-18-8599waiwxexscyRV CIERRA Ahmadi HERRINGFacility:C4Scstx: 04-05-2022 End: 21-60-3087tiftpjrensXA CIERRA Ahmadi HERRINGFacility:E8Qzxyr: 52-08-0939Vuknxv encounterNour Consuelo MCGARRY Work Phone: [facility]HealthStart: 03-08-2022 End: 89-37-4840zzslgejhmzRA ERIKA RESENDEZ .Facility:I7Mmkju: 01-17-2022 End: 40-60-0552bevijnsfpbSB DANIEL A HERRINGFacility:S0Riuul: 01-16-2022 End: 26-94-2159jeaqdpfqojXO ERIKA RESENDEZ .Facility:T2Puont: 06-22-2021 End: 42-19-8774Scobppi encounter procedureGina Carter [facility] Work Phone: [facility] Procedures DateProcedureProcedure DetailPerforming ClinicianStart: 79-04-8270EJVUKCI ORAL EVALUATION - PROBLEM FOCUSEDChkarly Jones DMD Work Phone: Start: 95-78-2311BDZNTABQQ RADIOGRAPHIC IMAGE Nolan Jones DMD Work Phone: Plan of Treatment DateCare ActivityDetailAuthorStart: 63-44-4714Hfkvu microalbumin profile [facility]Start: 39-19-4904Fslxftael vaccinationApex ClinicStart: 08-04-2024 End: 47-22-0706Pezipqq encounter sxupzhkrp70/30/2025 10:40 AM EDT Office Visit Dermatology [address] [id number] Carie Briseno MD [address] [place] [address] Follow UpDermatologyComment on above:Follow UpStart: 92-46-2671Obfwjlk vaccinationMetroHealthStart: 29-93-6125Xjbqnrkgh vaccination Influenza Vaccine (#1)[facility]24Medicare Annual Wellness VisitMedicare Annual Wellness VisitMartins Ferry Hospitaltart: 47-08-9152Yniivpwqv vaccinationMartins Ferry Hospitaltart: 73-68-8781Lrage panelMetroHealthStart: 61-10-2823IAHPBZSYCW ASSESSMENTDEPRESSION ASSESSMENTMartins Ferry Hospitaltart: 30-88-5213Ocbcbzywm vaccinationInfluenza Vaccine (#1)[facility]HealthStart: 69-80-3517QFV Vaccine (optional start 27-45 years)HPV Vaccine (optional start 27-45 years)[facility]HealthStart: 42-77-8054Kyipikpdz A (HAV) Vaccine (optional start 19+ years)Hepatitis A (HAV) Vaccine (optional start 19+ years)[facility] Start: 79-15-4517Yyxtuaiavhhq vaccinationMartins Ferry Hospitaltart: 09-14-2006 PNEUMOCOCCAL VACCINE SERIES (1 of 2 - PCV)PNEUMOCOCCAL VACCINE SERIES (1 of 2 - PCV)[facility]Start: 87-70-4699Ezloscgc (RZV) Vaccine (1 of 2) Shingles (RZV) Vaccine (1 of 2)[facility]HealthStart: 24-36-1358XFFXKUHQ VACCINE (1 of 2)SHINGRIX VACCINE (1 of 2)[facility]: 32-42-8523Yunib microalbumin profileDTAP,TDAP,TD (1 - Tdap)[facility]: 09-14-2006 Zoster vaccine hzv live for subcutaneous useZOSTER (SHINGLES) VACCINE (1 of 2) [facility]Start: 98-99-1008Ddkapcd ScreeningAnxiety Screening [facility]: 38-98-0498Vhqiraojsf ScreeningDepression Screening [facility]: 01-40-7046Bkrwvzhfi C screeningMetroHealthStart: 06-70-0280WFYQWPGND C SCREENINGHEPATITIS C SCREENINGMartins Ferry Hospitaltart: 90-65-8453WVX SCREENINGHIV SCREENINGMartins Ferry Hospitaltart: 62-58-2943WUC screeningHIV ScreeningMartins Ferry Hospitaltart: 04-98-9041LUQ screeningHIV SCREENING DISCUSSIONMercy General HospitalStart: 64-70-6477XSEIFTLQOVOC (1 - PCV)PNEUMOCOCCAL (1 - PCV)[facility]: 65-92-8393Iojukonvxskp vaccinationMetroHealthStart: 67-06-3160DBIYF-19 Vaccine (#1)COVID-19 Vaccine (#1)[facility]HealthStart: 31-26-3960XBTSC-19 Vaccine (#1)COVID-19 Vaccine (#1) [facility]HealthStart: 33-80-6337Suhvzd Oral ExamDental Oral ExamMercy General HospitalStart: 97-57-7254Jryflb ProphylaxisDental ProphylaxisMercy General HospitalStart: 05-75-3288FKKKDEHQM B (1 of 3 - 3-dose series)HEPATITIS B (1 of 3 - 3-dose series)[facility]: 95-18-3903Leuixwocv C screening HEPATITIS C VIRUS SCREENINGMercy General HospitalStart: 26-07-3649Ekhkynh stimulating hormone measurementCommunity Hospital of GardenaCOMPREHENSIVE ORAL EVAL - NEW/EST PATIENTCOMPREHENSIVE ORAL EVAL - NEW/EST PATIENT Dental Routine 1 Occurrences starting 08/20/2024[facility] Work Phone: comment on above:1 Occurrences starting 08/20/2024 INTRAORAL - COMPLETE SERIES OF RADIOGRAPHIC IMAGESINTRAORAL - COMPLETE SERIES OF RADIOGRAPHIC IMAGES Dental Routine 1 Occurrences starting 08/20/2024[facility] Work Phone: comment on above:1 Occurrences starting 08/20/2024 PROPHYLAXIS - ADULTPROPHYLAXIS - ADULT Dental Routine 1 Occurrences starting 08/20/2024[facility] Work Phone: comment on above:1 Occurrences starting 08/20/2024 Immunizations Immunization DateImmunizationNotesCare HiysxpnfZkpazeex85-78-2363tjrlrmvpn, injectable, quadrivalent, preservative Curry Carter [facility] Work Phone: [phone]jLtfigi51-40-7246agjxecdry virus vaccine, unspecified formulationNour Consuelo [facility] Work Phone: [phone]lOiamnq30-15-0290ewjnfryvcz, tetanus toxoids and pertussis vaccineUNC Health Work Phone: [phone]uGvpual59-83-8519wzcqvqtwi, injectable, quadrivalent, preservative freeUNC Health Work Phone: XtrerTnxuoq06-641572ZpxixGibapt99-10-6417rnegjxxyf, injectable, quadrivalent, preservative freeC[facility] [address] Work Phone: [phone]pAyrkoj76-78-6285kvwheopxs, injectable, quadrivalent, preservative freeUNC [facility] Work Phone: [phone]aNdwupq32-24-1575drwjvkttr, injectable, quadrivalent, contains preservativeUNC Health Work Phone: LttkuMfjiun92-513532YchsdNwlhsz08-35-2857ucacaldhd, seasonal, injectable [facility] Work Phone: [phone]pDqlskb78-93-9684bfxtoprho, injectable, quadrivalent, preservative freeUNC [facility] Work Phone: [phone]wEdhqxl02-52-0631jmdontm toxoid, reduced diphtheria toxoid, and acellular pertussis vaccine, adsorbedUNC [facility] Work Phone: VcbioItunsn03-515391PnrmsYejmri35-91-1535jkkyiwckw, injectable, quadrivalent, preservative freeUNC [facility] Work Phone: [phone]xHomked74-60-3367mywqmxmfk, seasonal, injectable [facility] Work Phone: XlptwViyygo73-142394EuoxdWfaxwp16-32-5684dcwccazdb, seasonal, injectable [facility] Work Phone: ZqsdcGbtxci35-260133SpnsoGkcfsz60-60-1093awsvgedwb, seasonal, injectable [facility] Work Phone: XyeiiFoxzsp31-880295KhtghPbmtlq54-67-3655heikfjmds virus vaccine, whole virusUNC Health Work Phone: [phone]mbxKohjvk81-87-2209cojpo xfwkglidf-X9S6-54, preservative-free, injectableUNC [facility] Work Phone: [phone]wHjdrae82-68-8410htgkisfbf virus vaccine, whole virusUNC Health Work Phone: OusvoPxepsm37-384317AevunTufjaj55-49-1172atsjommteozfd polysaccharide (groups A, C, Y and W-135) diphtheria toxoid conjugate vaccine (MCV4P)[facility] Work Phone: OohkqQgnrsq63-916785RkxcvIrsfns67-99-0798wjxwjnubd, seasonal, injectable [facility] Work Phone: HdtspTquoeu03-425619SnbolQindfw62-22-5311ZG(adult) unspecified formulation [facility] Work Phone: DgxemYjmnew11-436819EyujuRlmxoz01-58-6463ekdhjrg, mumps and rubella virus vaccineUNC Health Work Phone: AlicxCvieyf66-261661YlttzJkmnlb54-74-9398tkzhghl, mumps and rubella virus vaccineUNC Health Work Phone: JfuzyQtlivl35-202134KjoqlEqeril66-80-6572nmqidri, mumps and rubella virus vaccineUNC Health Work Phone: VzcchEmptoe67-836858ZxqyzFdcpix78-62-2577knjwhsytw B vaccine, pediatric or pediatric/adolescent dosageUNC Health Work Phone: [phone]pVmduxl83-86-7386owupfpomw B vaccine, pediatric or pediatric/adolescent dosageUNC [facility] Work Phone: [phone]vQdtqdi30-91-9234urmqfbbbj B vaccine, pediatric or pediatric/adolescent dosageUNC [facility] Work Phone: [phone]yLxfwjk73-09-0167uhmzyrxcoo, tetanus toxoids and acellular pertussis vaccine, unspecified formulationUNC Health Work Phone: VbqtnVzmtdu38-186833LoqsmDxtkqv63-51-2582zydieudpcf vaccine, inactivated [facility] Work Phone: UtpmbImzfoe90-401037RdkueTzhlug18-93-4820fhxsswjwns, tetanus toxoids and acellular pertussis vaccine, unspecified formulationUNC [facility] Work Phone: GypngWniuos83-640720ZjmegWnmqzi93-25-2748fefsjhqtg poliovirus vaccine, live, oralG[facility]west [facility] Work Phone: YykkeLfyaii34-997901XqxdxEcszje05-31-5067qaqfvwgqip, tetanus toxoids and pertussis vaccineUNC [facility] Work Phone: QrnwtVhmrvs67-459887XbklyBhsjgs93-58-0584rkxdczgkjc vaccine, inactivated [facility] Work Phone: KaujgVrexwk64-015719OuroaFuovvh47-37-8365ztknxcfgkh, tetanus toxoids and pertussis vaccineUNC [facility] Work Phone: BmpmeSbvlmk88-905924LevppQhghtj22-98-9765ylbqguw, mumps and rubella virus vaccineUNC [facility] Work Phone: JljzyPdiaqz24-879292YckcnWhakpl30-30-2163uceberklrg vaccine, inactivated [facility] Work Phone: DmdvpFvopdd45-306034YwiwyIidxxl42-31-8446nbazmsalr poliovirus vaccine, live, oralG[facility] Work Phone: WsqcxWqenvw85-295794KodmuTxazkj72-45-9274fduquqt, mumps and rubella virus vaccineUNC Health Work Phone: ZpnniAaelyl27-899965NkhuaGjkyww46-13-5723qeopjdlpdq, tetanus toxoids and pertussis vaccineUNC [facility] Work Phone: NljqqZdcwkl48-409259CdowgIaydix80-84-7927ukdwndmgug, tetanus toxoids and pertussis vaccineUNC [facility] Work Phone: VcpguFyspdv81-992217HejyaNkkvyv08-41-2585cgqteubgv poliovirus vaccine, live, oralG[facility] Work Phone: [phone]gFlmusf63-08-7039zyyhjcpqrk, tetanus toxoids and pertussis vaccineGina Carter [facility] Work Phone: [phone]rUuumac06-19-0483ohsxyncqwb vaccine, inactivated Gina Carter [facility] Work Phone: [phone]bUzglrr90-75-0769jslzopabgg, tetanus toxoids and pertussis vaccineGina Carter [facility] Work Phone: [phone]rEvzayq53-55-7633ydmpzpozw poliovirus vaccine, live, oralGina Carter [facility] Work Phone: [facility] Payers DatePayer CategoryPayerPolicy [id number] [id number] [id number] 19-52-1695Tifqci --Stand AloneDENTAL-MEDICAID [id number] 2007Medicaid [id number] 2.16840.1.793775.3.57[id number] 2.16840.1.043441.3.57[id number] 2.16.840.1.108260.3.57[id number] 2.840.1.805430.3.57[id number] 2.0.1.781487.3.57[id number] 2.840.1.496947.3.57[id number] 2.0.1.659484.3.57[id number] 2.0.1.729735.3.57[id number] 2.0.1.066548.3.57[id number] 2.840.1.406062.3.57[id number] 2.0.1.326397.3.57[id number] 2.840.1.875682.3.579.2.1259 [id number] 2.840.1.4[id number] 2.16840.1.368849.3.579.2.593Unknown [id number] 2.840.1.4[id number] 2.16.840.1.943480.3.579.2.593 Social History DateTypeDetailFacilityStart: 01-05-2016 End: 04-49-6372Cdvfvys smoking status NHISNever smoked tobaccoMetroHealthStart: 45-66-0535Kxohrxd use and exposureSmokeless tobacco non-userMetroHealthStart: 62-60-2645Rvtnlbt intakeLifetime non-drinker (finding)MetroHealthStart: 00-97-8409Fkglhzf SDOH Alcohol Mzgsrvwsr5CxkhyItlprzTjrnu: 11-70-9763Gde Assigned At BirthNot on fileMetroHealthStart: 49-77-4882Qheqsqh intakeNot Asked [facility]: 02-02[facility]2017 End: 54-35-5103Dfjzsk identityNot on [facility] HospitalHealthStart: 02-02-2017 End: 07-81-9393Qrxzeds of Social functionC[facility] Score (1-100), lower number is lower jmwa32NunprbsdbMartins Ferry Hospitaltart: 65-46-5452Sqrszxd of drug misuse behaviorHas never misused drugs (situation)[facility]roHealthStart: 12-10-2011 End: 59-57-0514DjaEqlk (finding)MetroHealthTobacco smoking status NHISTobacco smoking consumption unknownMarinHealth Medical Center [facility]istry Work Phone: Functional Status KevxCsiwpoaeszTcapuzBvdjnioe08-87-6350Ghn you deaf, or do you have serious difficulty hearingNo 07/27/2014 8:03 AM EDT Karyn Weems LPN [facility] HospitalCecvmb62-12-2187Pnq you blind, or do you have serious difficulty seeing, even when wearing glassesNo 07/27/2014 8:03 AM EDT Karyn Weems LPN [facility]06-22-2015Do you have serious difficulty walking or climbing stairsYes 07/27/2014 8:03 AM EDT Karyn Weems LPN [facility]06-22-2015Do you have difficulty dressing or bathingYes 07/27/2014 8:03 AM EDT Karyn Weems LPN [id number] of a physical, mental, or emotional condition, do you have difficulty doing errands alone such as visiting a physician's office or shoppingYes 07/27/2014 8:03 AM EDT Karyn Weems LPN Yes [facility] Mental Status Dtzo[id number] of a physical, mental, or emotional condition, do you have serious difficulty concentrating, remembering, or making decisionsNo 07/27/2014 8:03 AM EDT Karyn Weems LPN [facility] Clinical Notes 06-22-2021 to 08-20-2024 Note Date & OvioYdwmAxslxegy83-28-1319 History of Present illness Narrative* Peter Mena, CONGS - 08/20/2024 10:00 AM EDT Dental Exam 08/20/2024 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 No documented in this [facility] Work Phone: 1(569) 362-556807-16-2025 glass breaker procedure note* Dental Procedure Details - Peter Mena DDS - 08/20/2024 10:00 AM EDT Was local anesthetic administered? 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 Apply to pink patches on [...] or sooner if needed documented in this encounter[facility]-30-[facility] History of Present illness Narrative* Carie Briseno MD - 08/04/2024 10:40 AM EDT Established Patient LV 05/12/2024 Chief Complaint: Mycosis [...] needed. Moisturizing lotion daily Patient resides at [facility], here with Mother and Father Pertinent Past [...] Past Histories independently gathered by the clinical support team assoc and the remaining scribed note accurately describes my personal service to the patient. I saw and evaluated [place] Ramos, as well as developed and discussed the assessment and plan with the Resident. I have reviewed the Resident's note and agree with the history and physical examination as described, as well as the assessment and plan of care. The resident's note was annotated byme as needed to reflect my direct input. Carie Briseno MD documented in this encounterReg[facility]06-30-2025 NoteHNO ID: [id number] Author: CARIE BRISENO MD Service: ? Author [...] needed. Moisturizing lotion daily Patient resides at [facility], here with Mother and Father Pertinent Past [...] Past Histories independently gathered by the clinical support team assoc and the remaining scribed note accurately describes [...] needed to reflect my direct input. Carie Briseno, [facility]05-06-2025 Telephone encounter Note* Telephone Encounter - Carie Briseno MD - 06/10/2024 3:28 PM EDT Per last note: Triamcinolone 0.1% cream: Apply [...] this is still true. Carie Briseno MD [facility] Work Phone: [phone]) 113-248605-06-2025 Miscellaneous Notes* Telephone Encounter - Carie Briseno MD - 06/10/2024 3:28 PM EDT Per last note: Triamcinolone 0.1% cream: Apply [...] this is still true. Carie Briseno MD * Telephone Encounter - Ivory Diez - 06/10/2024 9:42 AM EDT Received phone call from Reina from [facility]. Asked if triamcinolone acetonide (KENALOG) 0.1 % cream be used as PRN? Also can nurse's stop giving patient Desitin cream? Best number to call Reina is [phone] documented in this encounterReg[facility]05-06-2025 Telephone encounter Note * Telephone Encounter - Ivory Diez - 06/10/2024 9:42 AM EDT Received phone call from Reina from [facility]. Asked if triamcinolone acetonide (KENALOG) 0.1 % cream be used as PRN? Also can nurse's stop giving patient Desitin cream? Best number to call Reina is [phone] [facility]04-07-2025 History of Present illness Narrative* Carie Briseno MD - 05/12/2024 10:40 AM EDT Est Patient JAMES: 11/19/2023 Chief Complaint: Mycosis Fungoides History of Present Ilness: Milan Ramos is a 38 year old male Presents today with caregiver from home and both parents; history provided by parents as Mr. Ramosnonverbal Patient is here for: 1) MF follow [...] 2 weeks of triamcinolone Patient resides at [facility] Pertinent Past Medical History: History of skin [...] Past Histories independently gathered by the clinical support team assoc and the remaining scribed note accurately describes my personal service to the patient. I saw and evaluated Milan Ramos, as well as developed and discussed the assessment and plan with the Resident. I have reviewed the Resident's note and agree with the history and physical examination as described, as well as the assessment and plan of care. The resident's note was annotated byme as needed to reflect my direct input. Carie Briseno MD documented in this encounterReg[facility]04-07-2025 NoteHNO ID: [id number] Author: CARIE BRISENO MD Service: ? Author [...] 2 weeks of triamcinolone Patient resides at [facility] Pertinent Past Medical History: History of skin [...] Past Histories independently gathered by the clinical support team assoc and the remaining scribed note accurately describes [...] needed to reflect my direct input. Carie Briseno, [facility]10-14-2024 Telephone encounter Note* Telephone Encounter - Parish Haskins - 11/19/2023 3:17 PM EDT Nurse with [facility] called to clarify Hydrocortisone cream instructions - daily or as needed. Stated both medication and visit notes state as needed in the instructions. [facility]10-14-2024 Miscellaneous Notes* Telephone Encounter - Parish Haskins - 11/19/2023 3:17 PM EDT Nurse with [facility] called to clarify Hydrocortisone cream instructions - daily or as needed. Stated both medication and visit notes state as needed in the instructions. documented in this encounterReg[facility]10-14-2024 Instructions* Patient Instructions* Debbi Dunham MD - 11/19/2023 12:04 PM [...] daily with gentle products documented in this encounterReg[facility]10-14-2024 History of Present illness Narrative* Carie Briseno MD - 11/19/2023 11:40 AM EDT Est Patient JAMES: [birth year] Chief Complaint: Mycosis [...] 10 minutes once-twice month Patient resides at [facility] Pertinent Past Medical History: History of skin [...] Past Histories independently gathered by the clinical support team assoc and the remaining scribed note accurately describes my personal service to the patient. I saw and evaluated Milan Ramos, as well as developed and discussed the assessment and plan with the Resident. I have reviewed the Resident's note and agree with the history and physical examination as described, as well as the assessment and plan of care. The resident's note was annotated byme as needed to reflect my direct input. Carie Briseno MD documented in this encounterReg[facility]10-14-2024 NoteHNO ID: [id number] Author: CARIE BRISENO MD Service: ? Author [...] 10 minutes once-twice month Patient resides at [facility] Pertinent Past Medical History: History of skin [...] Past Histories independently gathered by the clinical support team assoc and the remaining scribed note accurately describes [...] needed to reflect my direct input. Carie Briseno, [facility]11-08-2023 History of Present illness Narrative* Lakia Wagner RDH - 12/13/2022 10:28 AM EST ----- Tuesday, December 13, 2022 at 11:14:06 AM ----- ----- Provider: [id number] - Lakia Wagner Hygienist -- Clinic: [facility] ----- Pt is special needs and was accompanied by his father Reynaldo and director long term care from the [facility]. [facility], Pt is ready for tx., I was opening the X-Rays on the computer I felt him touching my hair, I turned to look at patient and his hand came at my face. Like a pie in your face is what the director long term care said. pt has been in OR in the past for treatment. The last X-Rays were taken in 05/24/2020. Pt had a prophy in 06/22/2021 but was not very cooperative.the decision was made to put him back on the OR list for an Exam, X-Rays and Prophy and if any workthat needs to be done. Legal Guardian: Reynaldo Magdaleno Ramos [phone] [facility] Nurse : [phone] Dr. Olson and I explained to Reynaldo and director long term care that it would be in the best interest for Milan to go to the OR and have all the treatment done at once. Discussed the medical necessity of the problem with the pt. Instructions given to director long term care about OR. Examination was done by Dr. Wesley FORREST. JAMEEL Lama [facility] ----- Signed on Tuesday, December 13, 2022 at 4:48:50 PM ----- ----- Provider: [id number] - Carlos Alberto Castro DDS -- Clinic: [facility] ----- documented in this [id number] History of Present illness Narrative* Carie Briseno MD - 06/12/2022 10:40 AM EDT Est Patient JAMES: 01/[birth year] Chief Complaint: Mycosis [...] 10 minutes once-twice month Patient resides at [facility] Pertinent Past Medical History: History of skin [...] Past Histories independently gathered by the clinical support team assoc and the remaining scribed note accurately describes my personal service to the patient. I saw and evaluated Milan Ramos, as well as developed and discussed the assessment and plan with the Resident. I have reviewed the Resident's note and agree with the history and physical examination as described, as well as the assessment and plan of care. The resident's note was annotated byme as needed to reflect my direct input. Carie Briseno MD 06/12/22 documented in this encounterRegency [facility]02-01-2023 NotePROCEDURE: XR ESOPHAGUS, XR CINERADIOGRAPHY COMPARISON: None. HISTORY: Intestinal obstruction TECHNIQUE: An air contrast upper gastrointestinal series was performed in the usual manner. Standard level fluoroscopic mode of operation utilized. FINDINGS: ESOPHAGUS:No visible obstruction, dilatation, reflux or hernia . OTHER: Negative. IMPRESSION: 1. Normal esophagram. Electronically authenticated by: GENNY MOON Date: 2022-03-08 14:02[facility]02-01-2023 NotePROCEDURE: XR ESOPHAGUS, XR CINERADIOGRAPHY COMPARISON: None. HISTORY: Intestinal obstruction TECHNIQUE: An air contrast upper gastrointestinal series was performed in the usual manner. Standard level fluoroscopic mode of operation utilized. FINDINGS: ESOPHAGUS:No visible obstruction, dilatation, reflux or hernia . OTHER: Negative. IMPRESSION: 1. Normal esophagram. Electronically authenticated by: GENNY MOON Date: 2022-03-08 14:02[facility]05-18-2022 History of Present illness Narrative* Gina Carter RDH - 06/22/2021 10:59 AM EDT ----- Tuesday, June 22, 2021 at 2:04:22 PM ----- ----- Provider: [id number] Elza Carter Hygienist -- Clinic: [facility] ----- Pt presents for examination No radiographs taken today due to pt cooperation. No decay noted duringclinical examination. Moderate to heavy plaque build-up. Provided pt with tooth brush prophy and fluoride varnish. Advised for re- evaluation in a year. Pt was last seen in the OR May 2020 and will not be eligible until May 2022. Gina HOANG/ Dr. Marleny FORREST. EXAM ----- Signed on Tuesday, June 22, 2021 at 3:26:23 PM ----- ----- Provider: [id number] Elza Castro DDS -- Clinic: [facility] ----- documented [facility]Evaluation [facility]* Diagnosis Mycosis fungoides, unspecified body region (HCC)- Primary Pruritus Unspecified pruritic disorder [facility]* Diagnosis Mycosis fungoides, unspecified body region (HCC)- Primary Pruritus Unspecified pruritic disorder documented in this encounter [facility] note* Diagnosis Mycosis fungoides, unspecified body region (HCC)- Primary Pruritus Unspecified pruritic disorder Irritant contact dermatitis, unspecified trigger documented in this encounter [facility] note* Diagnosis Mycosis fungoides, unspecified body region (HCC)- Primary Pruritus Unspecified pruritic disorder Irritant contact dermatitis, unspecified trigger documented in this [facility]* Diagnosis Seizure disorder- Primary Unspecified epilepsy without mention of intractable epilepsy Encounter for dental examination Dental examination documented in this encounter [facility] [employer] Work Phone: Summary Purpose Family History No Family History Records FoundNo Family History Records FoundNo Family History Records FoundNo Family History Records FoundNo Family History Records Found Advance Directives No Advanced Directives Records FoundNo Advanced Directives Records FoundNo Advanced Directives Records FoundNo Advanced Directives Records FoundNo Advanced Directives Records Found Additional Source Comments Care Teams (unrecognized sec tion and content) Team MemberRelationshipSpecialtyStart DateEnd Date Blaire CorderorichieMALGORZATA [address] [place] [address] SfgaupphSfiqkyuen73/6/20 Ankush Walls MD [address] [place] [address] PhysicianPlastic Hrvbkea25/4/20 Sharlene Jaramillo PUNCH MACHINE OPERATOR-MANAGER SAFE [address] [place] [address] [place] [address] APNAnesthesiology06/11/20Team MemberRelationshipSpecialtyStart DateEnd Date Todd Avendano [address] [place] [address] PCP - General05/15/00Team MemberRelationshipSpecialtyStart DateEnd Date Sandra CorderoMALGORZATA [address] [place] [address] OroecoxtVwtukzjyw91/6/20 Ankush Walls MD [address] [place] [address] PhysicianPlastic Sunyyav13/4/20 Sharlene Jaramillo PUNCH MACHINE OPERATOR-MANAGER SAFE [address] [place] [address] [place] [address] APNAnesthesiology06/11/20Team MemberRelationshipSpecialtyStart DateEnd Date Todd Avendano [address] [place] [address] PCP - General05/15/00Team MemberRelationshipSpecialtyStart DateEnd Date Todd Avendano [address] [place] [address] [facility]05/15/00Te MemberRelationshipSpecialtyStart DateEnd Date Todd Avendano [address] [address] [facility] - General05/15/00Te MemberRelationshipSpecialtyStart DateEnd Date Todd Avendano [address] [place] [address] [facility] - [facility]05/15/00 (unrecognized sect ion and content) No Status Records FoundNo Status Records FoundNo Status Records FoundNo Status Records FoundNo Status Records Found INFORMATION SOURCE (unrecogn ized section and content) DATE CREATED AUTHOR 05/12/2022 [facility] DATE CREATED AUTHOR AUTHOR'S ORGANIZ ATION 12/20/2022 [facility] DATE CREATED AUTHOR AUTHOR'S ORGANIZ ATION 05/04/2023 [facility] DATE CREATED AUTHOR AUTHOR'S ORGANIZ ATION 06/24/2023 [facility] DATE CREATED AUTHOR AUTHOR'S ORGANIZ ATION 08/09/2024 [facility] Source Comments (unrecognize d section and content) In the event this informatio n is protected by the Federal Confidentiality of Alcohol and Drug Abuse Patient Records regulations: The Federal rules restrict any use of the information to criminally investigate or prosecute any alcohol or drug abuse patient.[facility] EastIn the event this information is protected by the Federal Confidentiality of Alcohol and Drug Abuse Patient Records regulations: The Federal rules restrict any use of the information to criminally investigate or prosecute any alcohol or drug abuse patient.[facility] EastIn the event this information is protected by the Federal Confidentiality of Alcohol and Drug Abuse Patient Records regulations: The Federal rules restrict any use of the information to criminally investigate or prosecute any alcohol or drug abuse patient.[facility] EastIn the event this information is protected by the Federal Confidentiality of Alcohol and Drug Abuse Patient Records regulations: The Federal rules restrict any use of the information to criminally investigate or prosecute any alcohol or drug abuse patient.[facility] EastIn the event this information is protected by the Federal Confidentiality of Alcohol and Drug Abuse Patient Records regulations: The Federal rules restrict any use of the information to criminally investigate or prosecute any alcohol or drug abuse patient.[facility] EastIn the event this information is protected by the Federal Confidentiality of Alcohol and Drug Abuse Patient Records regulations: The Federal rules restrict any use of the information to criminally investigate or prosecute any alcohol or drug abuse patient.[facility] Reason for Visit (unrecogniz ed section and content) ReasonCommentsFollow UpReasonCommentsDerm ProblemReasonCommentsMycosis fungoides, unspecified body region (HCC)ReasonCommentsNew PatientPt presents non-verbal to clinic for comp exam, [...] BE BASED ON THE PRIMARY CLINICAL RECORDS. [facility] [employer] [facility]. provides no warranty or guarantee of the accuracy or completeness of information in this document.
--- OUTSIDE RECORDS SUMMARY | 2024-12-18 06:48 | XMS_ITS | Clinical Summary ---
Author Organization [facility] Address [address] [place] [address] Care Team Providers Care Spindle Repairer Name Role Phone Pedro Luis Avendano Primary Care Provider [phone] Allergies Active AllergyReactionsCriticalityNoted FdtgIitnzwmjKepalpfxGkkmo31/20/2009 Erythromycin-RkuxdezpoqqogLwskeaackcz93/09/2010Seasonal AllergiesItching 06/11/2012 Medications MedicationSigDispense QuantityRefillsLast FilledStart DateEnd DateStatus lactulose(ENULOSE 10 GRAM/15 ML ORAL SOLN) takes one tablespoon three times rapgb841ctive bisacodyl(DULCOLAX 10 MG RECTAL SUPPOSITORY) takes as directed as needed eqjliier490/20/2009ctive ACETAMINOPHEN 325 MG TAB takes one to two tablets every 4-6 hours as sgsmsi887ctive loratadine(CLARITIN 10 MG TAB) takes one tablet daily as needed as kimfximx444/20/2009ctive silver sulfadiazine(SSD AF 1 % TOPICAL CREAM) applies to affected area daily as /20/2009ctive CLINDAMYCIN 1 % TOPICAL SOLN Apply to affected area(s) twice daily.ctive GUANFACINE 1 MG TAB Take one(1) tablet daily.ctive divalproex sodium(DEPAKOTE 500 MG TAB) takes three tablets at bedtime kdxpv818ctive mometasone furoate(NASONEX 50 MCG/ACTUATION SPRAY) Brent twice in each nostril once daily.ctive multivitamins(DAILY MULTIVITAMIN TAB) Take one(1) tablet daily.ctive LITHIUM CARBONATE 150 MG CAP Take one(1) tablet two(2) times daily.ctive ondansetron (ZOFRAN) 4 mg tablet Take 4 mg by mouth as directed.Active Levothyroxine 75 mcg cap Take by mouth once daily.Active montelukast (SINGULAIR) 10 mg tablet Take 10 mg by mouth daily at bedtime.Active senna (SENOKOT) 8.6 mg tab Take 8.6 mg by mouth twice daily.Active hydrocortisone 2.5 % cream Apply to affected areas on trunk and extremities two times daily Sun to Sun 453.6 g Active mineral oil/hydrophil petrolatum (PETROLATUM) oint Please apply to arms 3-4 times daily and as needed to prevent frictional gpzvfmywvq17/27/2020Active carBAMazepine ER (CARBATROL) 200 mg 12 hr capsule Take 200 mg by mouth twice daily.Active linaCLOtide (LINZESS) 290 mcg capsule Take by mouth DAILY (6 AM).Active polyethylene glycol 3350 (BLT5334 ORAL) Take by mouth.Active ascorbic acid, vitamin C, (VITAMIN C) 250 mg tablet Take 250 mg by mouth once daily.Active cholecalciferol (VITAMIN D-3) 5,000 unit tab Take 5,000 Units by mouth once daily.Active ZINC GLUCONATE ORAL Take by mouth.Active guaifenesin (MUCUS RELIEF ORAL) Take by mouth.Active promethazine HCl (PHENERGAN ORAL) Take by mouth.Active triamcinolone acetonide (KENALOG) 0.1 % cream Apply to affected areas twice daily for two weeks, then resume hydrocortisone 80 g 11/19/2023ctive hydrocortisone 2.5 % cream Apply up to twice daily to active areas as needed 60 g ctive triamcinolone acetonide (KENALOG) 0.1 % cream Indications:Mycosis fungoides, unspecified body region (HCC),PruritusApply a small amount to pink patches on the hips, thighs, and buttocks twice daily Sunday-Sunday for four weeks then decrease to once per day, Sunday-Sunday. Avoid face, groin folds, and armpits. Canhold application when no pink rash seen. 453.6 g 5Active Active Problems ProblemNoted DateDiagnosed DateMycosis icvbsngdp61/14/2009 Social History Tobacco UseTypesPacks/DayYears UsedDateSmoking Tobacco: NeverAlcohol UseStandard Drinks/WeekCommentsNot Asked0 (1 standard drink = 0.6 oz pure alcohol)Area Deprivation IndexAnswerDate RecordedNational Score (1-100), lower number is lower dubg504011/19/2023State Score (1-10), lower number is lower nlpb760 Data from: https://www.neighborhoodatlas.medicine.[facility]/. Last address used for cjpvlhyjodw[address]Sex and Gender InformationValueDate RecordedSex Assigned at BirthNot on fileLegal RmkUtck32/02/2012 9:14 AM EST Gender IdentityNot on fileSexual OrientationNot on file Plan of Treatment Health MaintenanceDue DateLast DoneCommentsAnxiety Rsacdginu27/10/2006Depression Jsromcagr46/10/2006HIV Acopunpiw29/10/2006Hepatitis C Hmqisiqkk44/10/2006HPV Vaccine (1 - 3-dose SCDM series)09/14/2014Lipid Bkxfaxnyq73/10/2023Medicare Annual Wellness Visit05/07/2023ovid-19 Vaccine (2024- season)2024 Influenza Vaccine (#1)0/, 11/12/2019, 11/29/2018, Additional history existsDTaP,Tdap,Td Vaccine (9 - Td or Tdap), 12/23/2013, 11/19/2003, Additional history existsHepatitis B VaccineCompleted 06/02/1997, 01/04/1997, 12/02/1996 Insurance Care Teams Team MemberRelationshipSpecialtyStart DateEnd Date Pedro Luis Avendano [address] [facility] [place] [address] [facility]05/15/00
--- OUTSIDE RECORDS SUMMARY | 2024-12-18 06:48 | XMS_ITS | Clinical Summary ---
Author Organization Compliance Control [facility] tem Address [id number] [address] [place] [address] Care Team Providers Care Screed Operator Name Role Phone Manuel Gabriel DO Primary Care Provider [phone] Allergies Active AllergyReactionsCriticalityNoted NsgoCksmrjblYccyfyku54/05/2023 Erythromycin-Zhjcrfsgojctt63/05/2023 Medications MedicationSigDispense QuantityRefillsLast FilledStart DateEnd DateStatus ascorbic acid, vitamin C, (VITAMIN C) 250 mg tablet Take 1 tablet (250 mg total) by mouth in the morning.Active divalproex (DEPAKOTE ER) 500 mg 24 hr tablet Take 2 tablets (1,000 mg total) by mouth every 12 (twelve) hours. Give at 0800 and ctive divalproex (DEPAKOTE ER) 250 mg 24 hr tablet Take 1 tablet (250 mg total) by mouth every 12 (twelve) hours. Give at 0800 and ctive levothyroxine sodium (TIROSINT) 75 mcg capsule Take 1 capsule (75 mcg total) by mouth in the morning.Active montelukast (SINGULAIR) 10 mg tablet Take 1 tablet (10 mg total) by mouth nightly.Active multivitamin (THERAGRAN) tablet Take 1 tablet by mouth in the morning.10/04/2022ctive LINZESS 290 mcg capsule Take 1 capsule (290 mcg total) by mouth in the morning.Active polyethylene glycol (GLYCOLAX) 17 gram/dose powder Take 17 g by mouth in the morning.08/30/2022ctive cholecalciferol, vitamin D3, (VITAMIN D3) 5,000 units capsule Take 1 capsule (5,000 Units total) by mouth in the morning.10/04/2022ctive ZINC GLUCONATE ORAL Take 1 tablet by mouth in the morning.Active senna (SENOKOT) 8.6 mg tablet Take 1 tablet (8.6 mg total) by mouth 2 (two) times a day as needed for constipation.Active ondansetron (ZOFRAN) 4 mg tablet Take 1 tablet (4 mg total) by mouth every 6 (six) hours as needed for nausea or vomiting.Active guaiFENesin (MUCINEX) 600 mg tablet extended release 12hr Take 1 tablet (600 mg total) by mouth every 12 (twelve) hours as needed (Nasal congestion or cough).Active carBAMazepine (TEGretol) 200 mg tablet Take 1 tablet (200 mg total) by mouth in the morning and 1 tablet (200 mg total) before bedtime.10/04/2022ctive guanFACINE (TENEX) 1 mg tablet Take 0.5 tablets (0.5 mg total) by mouth in the morning and at bedtime. 10/04/2022ctive hydrocortisone (HYTONE) 2.5 % cream Apply 1 Application topically 2 (two) times a day as needed.06/12/2022ctive acetaminophen (TYLENOL) 325 mg tablet Take 2 tablets (650 mg total) by mouth every 4 (four) hours as needed for pain or headaches. Q4-6 PRNActive Active Problems No known active problems Resolved Problems ProblemNoted DateDiagnosed DateResolved FeclSjghleamewspeufj08/05/202309/08/2022 Immunizations No known immunizations Social History Tobacco UseTypesPacks/DayYears UsedDateSmoking Tobacco: NeverSmokeless Tobacco: Never Tobacco Cessation:Counseling Given: Not Answered Alcohol UseStandard Drinks/WeekCommentsNever0 (1 standard drink = 0.6 oz pure alcohol)Sex and Gender InformationValueDate RecordedSex Assigned at BirthNot on fileLegal TqrUjrg11/13/2022 8:16 AM ESTGender IdentityNot on fileSexual OrientationNot on file Last Filed Vital Signs Vital SignReadingTime TakenCommentsBlood Cmhefobu833/7609 8:30 AM EDT Zenry0345 8:30 AM WICIzuneuzjqvk93.2 ??C (97.1 ??F)10/12/2022 8:30 AM EDTRespiratory Pprh7098 8:30 AM EDTOxygen Uiwklznfpe88%10/12/2022 8:30 AM EDTInhaled Oxygen Concentration--Judbef10.2 kg (170 lb 3.1 oz)10/11/2022 12:00 AM DHMRxbimm634.3 cm (5' 9 )10/10/2022 4:00 AM EDTBody Mass Index25.13 10/10/2022 4:00 AM EDT Plan of Treatment Health MaintenanceDue DateLast DoneCommentsDepression Vydfohbys09/10/2000Tobacco Vovqdahhn41/10/2000Adult BMI Ggeorgjyq97Influenza Vaccine /, 11/12/2019, 11/29/2018, Additional history existsDTaP,Tdap and Td Vaccines (9 - Td or Tdap), 12/23/2013, 11/19/2003, Additional history exists Goals GoalPatient Goal TypeAssociated ProblemsRecent ProgressPatient-Stated?Author <enter goal here> Stephy Aaron MSW Note: Evaluation of progress towards goal: Return to [facility] Medical Devices Not on file Insurance * Guarantor: You JavierAccount TypeRelation to PatientDate of BirthPhone Billing AddressPersonal/GdnkfoJemy52/10/1986 [facility] [address] [place] [address] Advance Directives * Full Code (Latest Code Status on File) Date ActivatedDate InactivatedComments9/06/2022 4:20 AM10/12/2022 5:32 PM Care Teams Team MemberRelationshipSpecialtyStart DateEnd Date Manuel Gabriel DO [address] [place] [address] PCP - GeneralFamily Gnprdcip73/13/22
--- OUTSIDE RECORDS SUMMARY | 2024-12-18 06:48 | XMS_ITS | Clinical Summary ---
Author Organization [facility] Address [address] [place] [address] Phone Care Team Providers Care Atomic Spectroscopist Name Role Phone Unavailable Primary Care Provider Unavailabl e Medications MedicationSigDispense QuantityRefillsLast FilledStart DateEnd DateStatus carBAMazepine 200 MG tablet Take 2 tablets by mouth 2 times daily.Active divalproex 250 MG tablet ER Take 1 tablet by mouth every 12 hours.Active Phenol (VASELINE CARBOLATED PETROLEUM EX) Apply topically.Active triamcinolone 0.1 % Cream cream Apply 1 Application topically.Active Senna 8.6 MG tablet Take 2 tablets by mouth 2 times daily.Active Ondansetron 4 MG tablet Take 1 tablet by mouth every 6 hours as needed.Active Loratadine 10 MG tablet Take 1 tablet by mouth daily as needed for Other (for mild cold symptoms).Active hydrocortisone 2.5 % Cream Apply 1 Application topically 2 times daily as needed.Active Zinc Oxide (Desitin) 13 % Cream Apply topically at bedtime as needed.Active Levothyroxine 75 MCG tablet Take 1 tablet by mouth daily.Active linaCLOtide (Linzess) 290 MCG capsule Take 1 capsule by mouth daily.Active Montelukast 10 MG tablet Take 1 tablet by mouth at bedtime.Active risperiDONE 0.25 MG tablet Take 1 tablet by mouth 3 (three) times a day.Active Ascorbic acid 250 MG tablet Take 1 tablet by mouth daily.Active cholecalciferol 125 MCG (5000 UNIT) tablet Take 1 tablet by mouth daily.Active Zinc Gluconate 50 MG tablet Take 1 tablet by mouth daily.Active Active Problems ProblemNoted DateDiagnosed DateSevere intellectual qtaltrpaka99/16/2025 Angelman's zucnwmhh50/16/2025Dissociative rikjezni34/16/2025ipolar disorder 08/20/2024Nummular asrfin655Chronic zbfixmlebshv54/16/2025Non-verbal learning pwgtozhe73/16/2025Seasonal allergic ytmenfme36/16/2025Seizure disorder 08/20/2024 Overview (08/20/2024): No known episode since at least 2016 Pvttwybnbqffyp09/16/2025Cutaneous T-cell nzteksrm83/16/2025Mycosis fungoides 08/20/2024ADHD08/20/2024Dysphagia, oral phase08/20/2024Dysphagia, pharyngeal phase08/20/20241084Hfckjdyvvtg02/16/2025 Social History Tobacco UseTypesPacks/DayYears UsedDateSmoking Tobacco: Never AssessedSex and Gender InformationValueDate RecordedSex Assigned at BirthNot on fileLegal Sex Male07/15/2024 10:15 AM EDTGender IdentityNot on fileSexual OrientationNot on file Plan of Treatment Health MaintenanceDue DateLast DoneCommentsDental Oral Exam1987Dental Cwusfpashkz02/10/1988HEPATITIS C VIRUS NUXQPHWLK20/10/1780KBT69 1987COVID-19 VACCINE (#1)09/14/1992HIV SCREENING OHJSRSLZKB82/10/2003PNEUMOCOCCAL VACCINE SERIES (1 of 2 - PCV)09/14/2006ZOSTER (SHINGLES) VACCINE (1 of 2)09/14/2006HPV VACCINE (1 - Risk 3-dose SCDM series)09/14/20147135NHOYZVK27/18/701955/, 11/19/2003INFLUENZA VACCINE (#1), 11/12/2019, 11/29/2018, Additional history existsHEP B DFQGKDBUjrbshzbi61/28/1998, 01/04/1997, 12/02/1996TDAP (ADULT)Cuyuirgym40/18/2014, 11/19/2003 Insurance
--- OUTSIDE RECORDS SUMMARY | 2024-12-18 06:48 | XMS_ITS | Clinical Summary ---
Author Organization [facility] Address [address] [place] [address] Care Team Providers Care Dye Boarding Machine Operator Name Role Phone Manuel Gabriel MD Unavailable [phone] Allergies Active AllergyReactionsCriticalityNoted GfhgUbppoblkDejpefniUvcfj65/20/2009 Medications MedicationSigDispense QuantityRefillsLast FilledStart DateEnd DateStatus carBAMazepine (TEGretol) 200 MG tablet Take 200 mg by mouth in the morning and 200 mg in the evening.10/04/2022ctive divalproex (Depakote ER) 250 MG 24 hr tablet Take 250 mg by mouth every 12 (twelve) hours10/04/2022ctive divalproex (Depakote ER) 500 MG 24 hr tablet Take 1,000 mg by mouth every 12 (twelve) hours10/04/2022ctive escitalopram (Lexapro) 20 MG tablet 05/23/2023ctive levothyroxine (Synthroid, Levoxyl) 75 MCG tablet 05/23/2023ctive Linzess 290 MCG capsule Take 290 mcg by mouth DailyActive montelukast (Singulair) 10 MG tablet Take 10 mg by mouth at bedtimeActive Polyethylene Glycol 3350 (PEG 3350) 17 GM/SCOOP powder TAKE 17 GRAMS BY MOUTH DAILYActive zinc gluconate 50 MG tablet Take 50 mg by mouth Daily05/18/2023ctive Active Problems No known active problems Family History RelationNameStatusCommentsFatherAliveMotherAlive Social History Tobacco UseTypesPacks/DayYears UsedDateSmoking Tobacco: NeverSmokeless Tobacco: Never Tobacco Cessation:Counseling Given: Yes Alcohol UseStandard Drinks/WeekCommentsDefer0 (1 standard drink = 0.6 oz pure alcohol)Sex and Gender InformationValueDate RecordedSex Assigned at BirthNot on fileLegal PkkUkab7304/19/2022 6:52 PM EDTGender IdentityNot on fileSexual OrientationNot on file Plan of Treatment Not on file Insurance Care Teams Team MemberRelationshipSpecialtyStart DateEnd Manuel Gabriel MD [facility] [place], [place] [id number] Referring PhysicianOrthopaedic Surgery05/28/23
--- OUTSIDE RECORDS SUMMARY | 2024-12-18 06:48 | XMS_ITS | Clinical Summary ---
Author Organization [facility] Address [address] [facility] [place] [address] Care Team Providers Care Personal Financial Counselor Name Role Phone Sandra Cordero DDAnna Unavailable [phone] Ankush Walls MD Unavailable [phone] Sharlene Jaramillo APRN-MASTER Unavailable [phone] Source Comments The following information is NOT included in Care Everywhere downloads:Psychiatric notes, ECG results, Cardiac Rehab notes, Pulmonary Function notes, data from [facility] (includes but not limited toPregnancy data,audiograms, eye exams, pre-surgical evaluation notes, well-child exam data).[facility] Allergies Active AllergyReactionsCriticalityNoted ExamPrlmtikjJmpwtzbgCkmyq49/20/2009 MtesaxwugtuciNacvqkq78/07/2013Erythromycin-YrxjapoysimmzQgddk57/09/2010 Medications MedicationSigDispense QuantityRefillsLast FilledStart DateEnd DateStatus divalproex ER (DEPAKOTE ER) 250 MG ER tablet TAKE ONE TABLET BY MOUTH EVERY 12 HOURS DEPAKOTE ER05/06/2020ctive guanfacine (TENEX) 1 MG tablet TAKE ONE TABLET BY MOUTH TWICE A DAY TENEX05/06/2020ctive levothyroxine (SYNTHROID) 75 MCG tablet TAKE ONE TABLET BY MOUTH ONCE DAILY MSDSKKGGH83/01/2021ctive montelukast (SINGULAIR) 10 MG tablet Take 10 mg by mouth at bedtime.05/06/2020ctive Linzess 290 MCG CAPS capsule Take 290 mcg by mouth daily.05/06/2020ctive Mineral Oil-Hydrophil Petrolat OINT Please apply to arms 3-4 times daily and as needed to prevent frictional onrhvzyzez71/27/2020Active Multiple Vitamin (Multi-Vitamins) tablet Take 1 Tablet by mouth daily.05/06/2020ctive clindamycin (CLEOCIN) 300 MG capsule TAKE 1 CAPSULE BY MOUTH 4 TIMES DAILY FOR 7 DAYS. 28 Capsule 05/24/2020ctive Active Problems ProblemNoted DateDiagnosed DateDental decay05/13/2020 Overview (05/13/2020): Added automatically from request for surgery [id number] Mycosis /14/2009 Immunizations ImmunizationAdministration DatesNext DueDTP (CVX=01)12/11/2019,10/07/1991, 12/25/1990,04/06/1988,01/20/1988,01/11/1988,1987DTaP, unspecified formulation (OWG=913)11/15/1993,06/15/1992Hep B (peds/adol, 3-dose) (CVX=08) 06/02/1997,01/04/1997,12/02/1996Influenza, injectable, quadrivalent, preservative (YKZ=985)11/29/2016Influenza, injectable, quadrivalent, preservative free (PGY=549)12/01/2020,11/12/2019,11/29/2018,11/14/2017, 11/26/2014,12/11/2013Influenza, injectable, trivalent, preservative (DVB=206) 11/10/2015,12/03/2012,11/29/2011,10/19/2010,12/05/2005Influenza, novel S9Y2-48, injectable, preservative-free (AXG=063)12/23/2008Influenza, whole virus (CVX=16) 11/28/2009,11/28/2007MMR, Hvmuxhh-Hbrli-Zthfffm (CVX=03)10/02/2001,06/21/2000, 09/27/1999,12/25/1990,02/27/1989Meningococcal conjugate (MCV4,Men-ACWY), Menactra (MCV4P) (QRN=148)06/21/2006Polio, inactivated (IPV) (CVX=10)11/15/1993, 10/07/1991,12/25/1990,01/11/1988Polio, oral (OPV) (CVX=02)06/15/1992,07/24/1989, 01/20/1988,1987Td (adult), unspecified formulation (KDK=126)11/19/2003Tdap (GXG=866)12/23/2013 Social History Tobacco UseTypesPacks/DayYears UsedDateSmoking Tobacco: NeverSmokeless Tobacco: NeverAlcohol UseStandard Drinks/WeekCommentsNever0 (1 standard drink = 0.6 oz pure alcohol)Substance UseTypesUse/WeekCommentsNeverSex and Gender Information ValueDate RecordedSex Assigned at BirthNot on fileLegal EzqTzaj48/04/2012 12:24 PM ESTGender IdentityNot on fileSexual OrientationNot on file Last Filed Vital Signs Vital SignReadingTime TakenCommentsBlood Zpelgezz585/8204 1:15 PM EDT Jxadr565205/24/2020 1:15 PM VDKSqfnwkyiepz08.3 ??C (97.3 ??F)05/24/2020 1:15 PM EDTRespiratory Ofxr758005/24/2020 1:15 PM EDTOxygen Xapwwqdynd02%05/24/2020 1:15 PM EDTInhaled Oxygen Concentration--Irvmgd38.8 kg (176 lb)05/24/2020 9:07 AM EDT Aieikq229.7 cm (5' 8 )05/24/2020 9:07 AM EDTBody Mass Index26.76005/24/2020 9:07 AM EDT Plan of Treatment Health MaintenanceDue DateLast DoneCommentsCOVID-19 Vaccine (#1)09/14/1992 Hepatitis C Mkdqivct14/10/2006Hepatitis A (HAV) Vaccine (optional start 19+ years)09/14/2006Pneumococcal Vaccine(s) (1 of 2 - PCV)09/14/2006Shingles (RZV) Vaccine (1 of 2)09/14/2006Dental X-Ray: Kwotvjmjn29Dental Oral Exam, 06/13/2006Dental Fywhqgfberj58, 06/13/2006HPV Vaccine (optional start 27-45 years)09/14/2014Cholesterol 09/14/2022Tetanus (Td or Tdap) Sjziusq04/18/56027502/22/2013, 11/19/2003Influenza Vaccine (#1)/, 11/12/2019, 11/29/2018, Additional history existsHepatitis B (HBV) UsgteirSmzwvmbzm20/28/1998, 01/04/1997, 12/02/1996Tdap BvnbvhpEmjvagfjc58/18/2014HIV CwqpQshdwcklp51/05/2020 Procedures Procedure NamePriorityDate/TimeAssociated DiagnosisCommentsHIV1 HIV2 AGAB SCRN STAT102/09/2019 9:34 PM EST PROPHY ADULT 14 & OLDER07/20/2008 12:00 AM EDT Dental Examination PERIODIC EXAM07/20/2008 12:00 AM EDT Dental Examination INTRAORAL- COMPLETE SERIES FMX06/13/2006 12:00 AM EDT Dental Examination from Last 3 Months or Most Recently Relevant to Health Maintenance Results * HIV1 HIV2 AGAB SCRN (12/11/2019 9:34 PM EST)ComponentValueRef RangeTest Method Analysis TimePerformed AtPathologist SignatureHIV Ag-Ab ScreenNon-Reactive Non-Ocuqltpj84/06/2020 12:04 AM ESTS PATHOLOGY LABORATORYComment:No laboratory evidence for HIV Infection. Negative result does not rule out acute HIV infection. Ifacute HIV infection is suspected, recommend ordering an HIV-1 RNA quanitification test.Specimen (Source)Anatomical Location / Laterality Collection Method / VolumeCollection TimeReceived TimeBloodBLOOD SPECIMEN / Bifpgbf1012/11/2019 9:34 PM EST12/11/2019 10:10 PM EST Narrative [facility] - 12/12/2019 12:04 AM EST HIV Information: ??[place] Rev. code 3701.243(E): This information has been disclosed to you from confidential records protected from disclosure by state law. ??You shall make no further disclosure of this information without the specific, written, and informed release of the individual to whom it pertains, or as otherwise permitted by state law. ??A general authorization for the release of medical or other information is not sufficient for the purpose of the release of HIV test results or diagnoses. Authorizing ProviderResult TypeResult StatusAriana RENO HIV/HEP/SYPH TESTING Final ResultPerforming OrganizationAddressCity/State/ZIP CodePhone Number [facility] [address] [place] [phone] from Last 3 Months or Most Recently Relevant to Health Maintenance Insurance * Guarantor: You Javier TypeRelation to PatientDate of BirthPhone Billing AddressPersonal/SjsyuqPawf83/10/1986 [phone] (Home) [place] [address] * Guarantor: You Javier TypeRelation to PatientDate of BirthPhone Billing AddressPersonal/KtfqflXcdn41/10/1986 [phone] (Home) [place] [address] * Guarantor: You Javier TypeRelation to PatientDate of BirthPhone Billing AddressDental YnmnsfNohn06/10/1988 [phone] (Home) [place] [address] * Guarantor: You Javiercount TypeRelation to PatientDate of BirthPhone Billing AddressGoing Home XdhgMxfd00/10/1986 [phone] (Home) [phone] [place] [address] * Guarantor: You Javier FAccount TypeRelation to PatientDate of BirthPhone Billing Address[facility] BslyyuTryh90/10/1986 t[address] (Home) [facility] [place] [id number] Care Teams Team MemberRelationshipSpecialtyStart DateEnd Date Sandra Cordero, DDS [address] [place] [address] ZqryeaqyJnusfonuq03/6/20 Ankush Walls MD [address] [place] [id number] PhysicianPlastic Rqrrnwx31/4/20 Sharlene Jaramillo APRN-MASTER [address] [place] [id number] APNAnesthesiology06/11/20
[2024-12-19 07:08] LABS: Carbamazepine(Tegretol),S 5.5 ug/mL (4.0-12.0)
== END 2024-12-18 06:45 | disposition home or self-care (01) ==
LOC: LAB 06:44
PROVIDERS: PCP Family Medicine; Visit Provider Family Medicine
DX: F31.9 Bipolar disorder, unspecified (principal); G40.909 Epilepsy, unspecified, not intractable, without status epilepticus; Z79.899 Other long term (current) drug therapy
CPT/HCPCS: 36415; 80156; 80164